=== PATIENT | female | born 1955 | race Caucasian/White ===

== ENCOUNTER 2023-07-26 08:34 | Outpatient (OUT) | payer MEDICARE, SELFPAY | END 2023-07-26 08:35 | disposition home or self-care (01) | LOC: PST 07-27 08:35 | PROVIDERS: Visit Provider Surgery | DX: Z01.818 Encounter for other preprocedural examination (principal); Z12.11 Encounter for screening for malignant neoplasm of colon ==

== ENCOUNTER 2023-08-01 07:32 | Day surgery (SDC) | payer MEDICARE, SELFPAY ==
--- NOTE | 2023-08-01 | OP_ITS ---
OPERATION DATE: ??08/01/2023 PREOPERATIVE DIAGNOSIS:? Surveillance colonoscopy, family history of colon cancer. POSTOPERATIVE DIAGNOSIS:? 3 mm sigmoid polyp and moderate sigmoid diverticulosis, redundant colon. PROCEDURE:? Colonoscopy to cecum with cold snare polypectomy x1. SURGEON:? Job Singh M.D. ANESTHESIA:? Monitored anesthesia care. ESTIMATED BLOOD LOSS:? Less than 1 mL. INDICATIONS AND CONSENT:? Patient is a 68-year-old female with a family history of colon cancer, who presents for surveillance colonoscopy.? Last colonoscopy was in 2018.? Indications, risks, benefits, alternatives of proceeding with colonoscopy were explained extensively to the patient, including the risks of bleeding, colon perforation or anesthetic complications.? All of her questions were answered.? Informed consent was obtained. PROCEDURE:? Patient brought to the operating room, placed in the left lateral decubitus position.? Monitored anesthesia care was provided.? Rectal exam was performed which showed no masses or blood.? The scope was inserted into the anal canal.? Under direct visualization was advanced.? With the aid of abdominal compression, it was advanced to the cecum where cecal markings were clearly identified.? Upon withdrawal of the scope, mucosal surfaces were carefully examined.? There were no mass lesions or inflammatory changes.? Within the sigmoid colon, there was noted to be a 3 mm sessile, erythematous polyp that was removed with cold snare with good hemostasis.? There was moderate sigmoid diverticulosis without inflammatory changes or scarring.? The scope was retroflexed in the anal canal.? There was no significant hemorrhoidal disease.? Scope was then withdrawn.? Patient tolerated procedure well, was sent to recovery room in good condition.f/u colonoscopy likely in 5 years, but may change based on the pathology report. CC:? Patient?s family physician BUTCH
[2023-08-01 07:50] VITALS: BP 155/88; PULSE 95; RESP 16; TEMP 36.4; O2SAT 98; BMI 30.5
[2023-08-01] MEDS: LACTATED RINGER'S SOLUTION 1,000 ML 50 ML IV ×2 (08:03→10:24)
[2023-08-01 10:19] VITALS: BP 99/52; PULSE 69; RESP 17; TEMP 36.4; O2SAT 97
[2023-08-01 10:35] VITALS: BP 120/73; PULSE 69; RESP 16; O2SAT 97
[2023-08-01 10:49] VITALS: BP 143/74; PULSE 59; RESP 16; O2SAT 99
== END 2023-08-01 10:49 | disposition home or self-care (01) ==
PROVIDERS: PCP Family Medicine; Visit Provider Surgery
PROC: (CPT 45385; principal; 2023-08-01 09:20)
DX: Z12.11 Encounter for screening for malignant neoplasm of colon (principal); Z80.0 Family history of malignant neoplasm of digestive organs; I10 Essential (primary) hypertension; E78.5 Hyperlipidemia, unspecified; Z90.710 Acquired absence of both cervix and uterus; K57.30 Diverticulosis of large intestine without perforation or abscess without bleeding; Q43.8 Other specified congenital malformations of intestine; R73.03 Prediabetes
CPT/HCPCS: 45385; J2704

== ENCOUNTER 2023-08-03 07:38 | Outpatient (OUT) | payer MEDICARE, SELFPAY ==
--- NOTE | 2023-08-03 07:43 | MM_ITS ---
Patient: MELLO KITCHEN Exam Date: 08/03/2023 : 1955 Gender:F Ordering : DR Shaun Licona . Admission #: [id number] Family : Order #: [id number] CLICK HERE TO VIEW EXAM RADIOLOGY REPORT PROCEDURE: MM TOMOSYNTHESIS SCREENING BI COMPARISON: MG MAMM SCREEN 3D TASHIA CAD, 07/31/2022. MG MAMM SCREEN 3D TASHIA CAD, 07/29/2021. MG MAMM SCREEN TASHIA W CAD, 07/21/2020. MG MAMM TASHIA SCRN W CAD DIG, 10/15/2009. INDICATIONS: Screening Calculator Name NCI Breast Cancer Risk Assessment Tool 5 Year Breast Cancer Risk 2.30% Lifetime Breast Cancer Risk 7.40% Personal Breast Cancer No Personal Ovarian Cancer No Treatments None Family Cancers Mother with colon cancer at age 60; Father with colon cancer at age 65. LOCATION: [facility] BREAST COMPOSITION: Heterogeneously dense,which may obscure small masses. FINDINGS: DIAGNOSTIC CATEGORY 0--INCOMPLETE: NEED ADDITIONAL IMAGING EVALUATION. RIGHT BREAST: 1.2 cm circumscribed mass within upper inner quadrant approximately 12 o'clock mid breast which is increased in size. Adjacent 0.9 cm circumscribed mass is chronic and has remained stable. Spot magnification views and ultrasound evaluation recommended. LEFT BREAST: No significant suspicious finding. No significant change has occurred. RECOMMENDATIONS: ADDITIONAL MAMMOGRAPHIC VIEWS REQUIRED: RIGHT BREAST - RIGHT CRANIOCAUDAL SPOT MAGNIFICATION VIEW - RIGHT OBLIQUE SPOT MAGNIFICATION VIEW - ULTRASOUND: RIGHT BREAST PLEASE NOTE: A NORMAL MAMMOGRAM DOES NOT EXCLUDE THE POSSIBILITY OF BREAST CANCER. A CLINICALLY SUSPICIOUS PALPABLE LUMP SHOULD BE BIOPSIED. Dictated by: Osman Javed M.D. on 08/03/2023 at 11:31 Approved by: Osman Javed M.D. on 08/03/2023 at 11:43
== END 2023-08-03 07:39 | disposition home or self-care (01) ==
LOC: MAMMO 07:38
PROVIDERS: PCP Family Medicine; Visit Provider Family Medicine
DX: Z12.31 Encounter for screening mammogram for malignant neoplasm of breast (principal); Z80.0 Family history of malignant neoplasm of digestive organs; N63.12 Unspecified lump in the right breast, upper inner quadrant
CPT/HCPCS: 77063; 77067

== ENCOUNTER 2023-08-08 07:51 | Outpatient (OUT) | payer MEDICARE, SELFPAY ==
[2023-08-08 08:14] LABS: Basophils Percent Auto 0.6 % (0.2-2.0); Eosinophils Absolute Auto 0.1 10^3/uL (0.0-0.7); Hematocrit 38.8 % (36.0-48.0); Immature Granulocytes Abs Auto 0.01 10^3/uL (0.00-0.03); Immature Granulocytes Pct Auto 0.2 % (0.0-0.5); Lymphocytes Absolute Auto 1.5 10^3/uL (1.2-3.8); Lymphocytes Percent Auto 29.1 % (20.5-60.0); Mean Corpuscular HGB Conc 33.5 g/dL (29.9-35.2); Mean Corpuscular Hemoglobin 32.1 pg (26.7-34.0); Mean Corpuscular Volume 95.8 fL (81.0-99.0); Mean Platelet Volume 10.3 fL (9.5-13.5); Monocytes Absolute Auto 0.5 10^3/uL (0.3-0.8); Monocytes Percent Auto 9.4 % (1.7-12.0); Neutrophils Percent Auto 58.7 % (43.0-75.0); Platelet Count 202 10^3/uL (150-450); Red Blood Count 4.05 10^6/uL (4.20-5.40); Red Cell Distribution Width 12.7 % (11.0-15.0); White Blood Count 5.1 10^3/uL (4.0-11.0)
[2023-08-08 14:01] LABS: Alanine Aminotransferase 34 U/L (14-59); Albumin Globulin Ratio 1.1; Albumin Level 3.9 g/dL (3.4-5.0); Alkaline Phosphatase 83 U/L (46-116); Anion Gap 13.8; Aspartate Amino Transferase 13 U/L (15-37); Bilirubin Direct 0.1 mg/dL (0.0-0.2); Bilirubin Total 0.6 mg/dL (0.2-1.0); Carbon Dioxide 29.1 mmol/L (21.0-32.0); Chloride 100 mmol/L (98-107); Chol HDL Ratio 1.9; Cholesterol 128 mg/dL (<=200); Globulin 3.5 g/dL; HDL Cholesterol 67 mg/dL (40-60); Potassium 3.9 mmol/L (3.5-5.1); Sodium 139 mmol/L (136-145); Total Protein 7.4 g/dL (6.4-8.2); Triglycerides 73 mg/dL (<=150); VLDL CHOLESTEROL 14.6 mg/dL
[2023-08-08 14:17] LABS: Estimated Average Glucose 123 mg/dL; Glycohemoglobin A1C 5.9 % (4.5-6.2)
== END 2023-08-08 07:52 | disposition home or self-care (01) ==
PROVIDERS: PCP Family Medicine; Visit Provider Family Medicine
DX: E87.5 Hyperkalemia (principal); R73.03 Prediabetes; Z79.899 Other long term (current) drug therapy
CPT/HCPCS: 36415; 80051; 80061; 80076; 83036; 85025

== ENCOUNTER 2023-08-22 08:23 | Outpatient (OUT) | payer MEDICARE, SELFPAY ==
--- NOTE | 2023-08-22 08:27 | MM_ITS ---
Patient: MELLO KITCHEN Exam Date: 08/22/2023 : 1955 Gender:F Ordering : DR PRISCILLA SANCHEZ . Admission #: [id number] Family : Order #: [id number] CLICK HERE TO VIEW EXAM RADIOLOGY REPORT PROCEDURE: MM DIAGNOSTIC MAMMO UNILAT RT, 08/22/2023, 08:32 US BREAST RT LIMITED, 08/22/2023, 08:56 COMPARISON: MM TOMOSYNTHESIS SCREENING BI, 08/03/2023. MG MAMM SCREEN 3D TASHIA CAD, 07/31/2022. MG MAMM SCREEN 3D TASHIA CAD, 07/29/2021. MG MAMM SCREEN TASHIA W CAD, 07/21/2020. INDICATIONS: Abnormal Mammogram Calculator Name NCI Breast Cancer Risk Assessment Tool 5 Year Breast Cancer Risk 2.30% Lifetime Breast Cancer Risk 7.40% Personal Breast Cancer No Personal Ovarian Cancer No Treatments None Family Cancers Mother with colon cancer at age 60; Father with colon cancer at age 65. LOCATION: [facility] BREAST COMPOSITION: Heterogeneously dense,which may obscure small masses. FINDINGS: DIAGNOSTIC CATEGORY 3--PROBABLY BENIGN FINDING. THE FOLLOWING FINDING(S) HAS A HIGH PROBABILITY OF A BENIGN ETIOLOGY: RIGHT BREAST: Spot magnification views demonstrate a partially circumscribed 1.2 cm lesion within the upper inner quadrant approximately 12 o'clock. Ultrasound evaluation demonstrates a 1.2 x 0.6 x 1.2 cm anechoic cystic structure with minimally irregular clark. Adjacent to this is a questionable 0.7 x 0.4 x 0.7 cm lymph node versus mass. Follow-up evaluation in 6 months is recommended to document stability versus change. RECOMMENDATIONS: SHORT TERM FOLLOW-UP DIAGNOSTIC MAMMOGRAM RIGHT BREAST IN 6 MONTHS. SHORT TERM FOLLOW-UP ULTRASOUND RIGHT BREAST IN 6 MONTHS. PLEASE NOTE: A NORMAL MAMMOGRAM DOES NOT EXCLUDE THE POSSIBILITY OF BREAST CANCER. A CLINICALLY SUSPICIOUS PALPABLE LUMP SHOULD BE BIOPSIED. Dictated by: Osman Javed M.D. on 08/22/2023 at 09:19 Approved by: Osman Javed M.D. on 08/22/2023 at 09:25
== END 2023-08-22 08:24 | disposition home or self-care (01) ==
LOC: MAMMO 08:23
PROVIDERS: PCP Family Medicine; Visit Provider Family Medicine
DX: R92.8 Other abnormal and inconclusive findings on diagnostic imaging of breast (principal); N64.9 Disorder of breast, unspecified
CPT/HCPCS: 76642; 77065

== ENCOUNTER 2024-03-05 07:44 | Outpatient (OUT) | payer MEDICARE, SELFPAY ==
--- NOTE | 2024-03-05 07:50 | MM_ITS ---
Patient Name: MELLO KITCHEN MR#: [id number] : 1955 Exam Date: 03/05/2024 Ordering Doctor: DR Shaun Licona . RADIOLOGY REPORT PROCEDURE: MM TOMOSYNTHESIS DIAGNOSTIC RT, 03/05/2024, 06:55 US BREAST RT LIMITED, 03/05/2024, 08:06 COMPARISON: US BREAST RT LIMITED, 08/22/2023. MM DIAGNOSTIC MAMMO UNILAT RT, 08/22/2023. MM TOMOSYNTHESIS SCREENING BI, 08/03/2023. MG MAMM SCREEN 3D TASHIA CAD, 07/31/2022. INDICATIONS: Abnormal Right Mammogram R92.8 Calculator Name NCI Breast Cancer Risk Assessment Tool 5 Year Breast Cancer Risk 2.30% Lifetime Breast Cancer Risk 7.40% Personal Breast Cancer No Personal Ovarian Cancer No Treatments None Family Cancers Mother with colon cancer at age 60; Father with colon cancer at age 65. LOCATION: [facility] BREAST COMPOSITION: The breasts are heterogeneously dense,which may obscure small masses. FINDINGS: DIAGNOSTIC CATEGORY 3--PROBABLY BENIGN FINDING. THE FOLLOWING FINDING(S) HAS A HIGH PROBABILITY OF A BENIGN ETIOLOGY: RIGHT BREAST: Standard views and spot magnification views demonstrate a partially circumscribed lesion within the upper inner quadrant approximately 12 o'clock, 1.2 cm in size with stable adjacent 8 mm lesion. Ultrasound evaluation demonstrates an anechoic thin walled 1.2 x 1.2 x 0.6 cm cyst favoring benign etiology. Adjacent to this, 6.1 cm from the nipple is a 7 x 6 x 3 mm small nodule with associated calcification corresponding to the mammographic findings; unchanged compared to prior ultrasound study and stable could paired to tomographic mammography through at least 2021. As a precautionary measure and to help document stability over 2 year period additional follow-up mammography and right breast ultrasound in 6 months is recommended. RECOMMENDATIONS: SHORT TERM FOLLOW-UP DIAGNOSTIC MAMMOGRAM RIGHT BREAST IN 6 MONTHS. SHORT TERM FOLLOW-UP ULTRASOUND RIGHT BREAST IN 6 MONTHS. PLEASE NOTE: A NORMAL MAMMOGRAM DOES NOT EXCLUDE THE POSSIBILITY OF BREAST CANCER. A CLINICALLY SUSPICIOUS PALPABLE LUMP SHOULD BE BIOPSIED. Dictated by: Osman Javed M.D. on 03/05/2024 at 08:22 Approved by: Osman Javed M.D. on 03/05/2024 at 08:33
== END 2024-03-05 07:45 | disposition home or self-care (01) ==
LOC: MAMMO 07:44
PROVIDERS: PCP Family Medicine; Visit Provider Family Medicine
DX: R92.8 Other abnormal and inconclusive findings on diagnostic imaging of breast (principal); Z80.0 Family history of malignant neoplasm of digestive organs; N63.12 Unspecified lump in the right breast, upper inner quadrant
CPT/HCPCS: 76642; 77065; G0279

== ENCOUNTER 2024-07-11 07:59 | Outpatient (OUT) | payer MEDICARE, SELFPAY ==
--- OUTSIDE RECORDS SUMMARY | 2024-07-11 08:02 | XMS_ITS | CCD ---
Author Organization [facility] Care Team Providers Care Drug Abuse Social Worker Name Role Phone DANIEL, DR PRISCILLA Mayen Admitting Unavailable NADERER, DR PRISCILLA Mayen Attending Unavailable NADERER, DR PRISCILLA Mayen Primary Care Unavailable ZIEBER, DR OSMAN Pulliam Consulting Unavailable NADERER, DR PRISCILLA Mayen Consulting Unavailable NADERER, DR PRISCILLA Mayen Admitting Unavailable NADERER, DR PRISCILLA Mayen Attending Unavailable NADERER, DR PRISCILLA Mayen Primary Care Unavailable NADERER, DR PRISCILLA Mayen Consulting Unavailable NADERER, DR PRISCILLA Mayen Admitting Unavailable NADERER, DR PRISCILLA Mayen Attending Unavailable NADERER, DR PRISCILLA Mayen Primary Care Unavailable NADERER, DR PRISCILLA Mayen Consulting Unavailable NADERER, PRISCILLA Primary Care Physician GERI, Job Pulliam Attending Unavailable NILL, Job Pulliam Attending Unavailable NADERER, PRISCILLA Referring Unavailable NILL, Job Pulliam Attending Unavailable NILL, Job Pulliam Attending Unavailable NILL, Job Pulliam Attending Unavailable NADERER, PRISCILLA Attending Unavailable NADERER, PRISCILLA Attending Unavailable Allergies Allergy Classification Reported Allergen(s) Allergy Type Date of Onset Reaction(s) Facility (1 source) No Known Medication Allergies; Translations: [No Known Medication Allergies] Propensity to adverse reactions (disorder) [facility] Repository Medications Current Medications Medication Drug Class(es) Dates Sig (Normalized) Sig (Original) atorvastatin 20 mg oral tablet (2 sources) HMG-CoA Reductase Inhibitor Start: 07-06-2023 take 1 tablet by mouth once daily Lipitor 20 mg Tab 20 mg = 1 tab(s), Oral, Daily, Refills(s) 0 Start Date: 07/06/23 Status: Ordered hydroCHLOROthiazide 25 mg / lisinopril 20 mg oral tablet (2 sources) Thiazide Diuretic, Angiotensin Converting Enzyme Inhibitor Start: 07-06-2023 take 1 tablet by mouth once daily Zestoretic 25 mg-20 mg Tab 1 tab(s), Oral, Daily, Refill(s) 0 Start Date: 07/06/23 Status: Ordered metoprolol tartrate 25 mg oral tablet (2 sources) beta-Adrenergic Anselmo Start: 07-06-2023 take 1 tablet by mouth twice daily Metoprolol tartrate 25 mg Tab 25 mg = 1 tab(s), Oral, BID, Refills(s) 0 Start Date: 07/06/23 Status: Ordered Problems Active Problems Problem Classification Problem Date Documented Da te Episodic/Chronic Cardiac dysrhythmias (3 sources) Ventricular premature depolarization; Translations: [Ventricular arrhythmia] Onset: 02-24-2022 07-06-2023 Chronic Diabetes mellitus without complication (3 sources) Prediabetes; Translations: [Prediabetes] Onset: 08-01-2022 07-06-2023 Episodic Disorders of lipid metabolism (6 sources) Hyperlipidemia, unspecified; Translations: [Dyslipidemia] Onset: 07-31-2022 Chronic Diverticulosis and diverticulitis (2 sources) Diverticula of intestine; Translations: [Diverticulosis of large intestine without perforation or abscess without bleeding] Onset: 08-14-2023 Chronic Essential hypertension (3 sources) Essential (primary) hypertension; Translations: [Hypertensive disorder] Onset: 08-01-2022 07-06-2023 Chronic Heart valve disorders (1 source) Rheumatic tricuspid insufficiency; Translations: [RHEUMATIC TRICUSPID INSUFFICIENCY] Onset: 02-24-2022 Chronic Other and unspecified benign neoplasm (2 sources) Benign neoplasm of sigmoid colon; Translations: [Benign neoplasm of sigmoid colon] Onset: 08-14-2023 Episodic Other nutritional; endocrine; and metabolic disorders (2 sources) Overweight 07-06-2023 Episodic Other nutritional; endocrine; and metabolic disorders (2 sources) Overweight in adulthood with body mass index of 25 or more but less than 30 07-11-2023 Episodic Other screening for suspected conditions (not mental disorders or infectious disease) (2 sources) Encounter for screening mammogram for malignant neoplasm of breast; Translations: [Screening for malignant neoplasm of colon done] Onset: 08-01-2022 Episodic Other upper respiratory disease (2 sources) Seasonal allergy 07-06-2023 Chronic Residual codes; unclassified (2 sources) Family history of polyp of colon 07-11-2023 Episodic Residual codes; unclassified (1 source) Family history of malignant neoplasm of digestive organ; Translations: [Family history of malignant neoplasm of digestive organs] Onset: 08-14-2023 Episodic Residual codes; unclassified (1 source) Family history of cancer of colon 08-14-2023 Episodic Unclassified (4 sources) Patient encounter status 07-06-2023 Past or Other Problems Problem Classification Problem Date Documented Da te Episodic/Chronic Cardiac dysrhythmias (4 sources) Palpitations; Translations: [PALPITATIONS] Onset: 02-03-2022 Episodic Other aftercare (1 source) Other usp (current) drug therapy; Translations: [OTH SNF CURRENT DRUG THERAPY] Onset: 08-01-2022 Episodic Other lower respiratory disease (4 sources) Shortness of breath; Translations: [SHORTNESS OF BREATH] Onset: 02-22-2022 Episodic Other nutritional; endocrine; and metabolic disorders (1 source) Overweight; Translations: [OVERWEIGHT] Onset: 08-01-2022 Episodic Residual codes; unclassified (1 source) Family history of malignant neoplasm of digestive organs; Translations: [FAM HX MALIG NEOPLASM DIGESTIV ORGN] Onset: 08-01-2022 Episodic Results Test Name Value Interpretation Reference Range Facility Ambulatory Visit Summaryon 1 Ambulatory Visit Summary MELLO KITCHEN :1955 Visit Date:08/14/2023 Ambulatory Visit Instructions Your Care Team Attending Physician - GERI STANTON, Job Pulliam Primary Care Physician - DANIEL STANTON, PRISCILLA This Is Your Medications List atorvastatin (Lipitor 20 mg Tab) hydrochlorothiazide-l isinopril (Zestoretic 25 mg-20 mg Tab) metoprolol (Metoprolol tartrate 25 mg Tab) Procedures Performed Colonoscopy (08/01/2023), Colonoscopy (06/26/2018), Abdominal hysterectomy, Colonoscopy, Colonoscopy, Colonoscopy, Tonsillectomy. Medications What How Much When Instructions Unchanged atorvastatin (Lipitor 20 mg Tab) 1 Tablets By Mouth Every day Unchanged hydrochlorothiazide-l isinopril (Zestoretic 25 mg-20 mg Tab) 1 Tablets By Mouth Every day Unchanged metoprolol (Metoprolol tartrate 25 mg Tab) 1 Tablets By Mouth 2 times a day Allergies No Known Allergies No Known Medication Allergies Problems Ongoing - Any problem that you are currently receiving treatment for. BMI 26.0-26.9,adult Dyslipidemia Family history of colonic polyps HTN (hypertension) Overweight Prediabetes Screening for colorectal cancer Screening for malignant neoplasm of colon Seasonal allergies Ventricular ectopy Normal [facility] General Surgery Office/Clini c Noteon 08-14-2023 General Surgery Office/Clinic Note Chief Complaint post operative follow up HPI Staff 13 day post operative follow up post colonoscopy with sigmoid polypectomy. History of Present Illness s/p colonoscopy due to fmhx of colon cancer; had moderate sigmoid diverticulosis; and small sigmoid polyp removed; polyp was not retrieved, but appearance was consistent with possible tubular adenoma. patient denies abd pain or blood in stools. Review of Systems ROS - Provider Constitutional: no fever, no sweats, no weight loss. Eyes: no glasses, no blurred vision, no visual loss. ENMT: no dentures, no hoarseness, no swallowing difficulties, no hearing loss, no ear infection(s), no nose bleeds. Cardiovascular: normal blood pressure, no chest pain, regular heartbeat, no heart murmur. Respiratory: no shortness of breath, no cough, no asthma, no wheezing. Gastrointestinal: no nausea, no vomiting, no diarrhea, no constipation, no blood in stool, no change in bowel habits, no abdominal pain, no hepatitis. Genitourinary: no kidney stones, no urine infection, no dysuria. Musculoskeletal: no pain, no weakness. Skin: no changing moles, no rash, no skin lumps. Neurologic: no seizures, no epilepsy, no headache. Psychiatric: no emotional or psychiatric problem. Heme/Lymph: no bleeding problems, no anemia, no blood clots, no transfusions. Allergy/Immunologic: no swollen lymph nodes/glands, no IV drug abuse. Other: Additional ROS info: Except as noted in the above Review of Systems and in the History of Present Illness, all other systems have been reviewed and are negative or noncontributory. Assessment/Plan 1. Benign neoplasm of sigmoid colon (D12.5: Benign neoplasm of sigmoid colon) recommend surveillance colonoscopy in 5 years; call sooner if problems/questions. 2. Diverticulosis of sigmoid colon (K57.30: Diverticulosis of large intestine without perforation or abscess without bleeding) high fiber diet and dailly fiber supplement 3. Family hx of colon cancer (Z80.0: Family history of malignant neoplasm of digestive organs) see # 1 Follow-up No qualifying data available Problem List/Past Medical History Ongoing Benign neoplasm of sigmoid colon BMI 26.0-26.9,adult Diverticulosis of sigmoid colon Dyslipidemia Family history of colonic polyps Family hx of colon cancer HTN (hypertension) Overweight Prediabetes Screening for colorectal cancer Screening for malignant neoplasm of colon Seasonal allergies Ventricular ectopy Historical No qualifying data Procedure/Surgical History Colonoscopy (08/01/2023), Colonoscopy (06/26/2018), Abdominal hysterectomy, Colonoscopy, Colonoscopy, Colonoscopy, Tonsillectomy. Medications Lipitor 20 mg Tab, 20 mg= 1 tab(s), Oral, Daily Metoprolol tartrate 25 mg Tab, 25 mg= 1 tab(s), Oral, BID Zestoretic 25 mg-20 mg Tab, 1 tab(s), Oral, Daily Allergies No Known Allergies No Known Medication Allergies Social History Alcohol - Denies Alcohol Use, 07/11/2023 Substance Abuse - Denies Substance Abuse, 07/11/2023 Tobacco Never (less than 100 in lifetime) Tobacco Use:. Never Smokeless Tobacco Use:., 07/11/2023 Family History Hypertension: Mother and Father. Primary malignant neoplasm of colon: Mother and Brother. Immunizations Vaccine Date Status SARS-CoV-2 (COVID-19) [id number] 10/20/2022 Recorded SARS-CoV-2 (COVID-19) mRNA BNT-162b2 vax 09/06/2021 Recorded SARS-CoV-2 (COVID-19) mRNA BNT-162b2 vax 02/08/2021 Recorded SARS-CoV-2 (COVID-19) mRNA BNT-162b2 vax 01/17/2021 Recorded Normal [facility] Comment on above: Result Comment: Elec tronically Signed By: GERI STANTON, Job Camacho\Date and Time Signed: 08/14/23 13:51 EDT Reminderson 08-14-2023 Reminders - From: Mayra Vivar LPN To: N - Clinical; Sent: 08/14/2023 13:31:54 EDT Show up: 07/01/2028 07:00:00 EDT Subject: colonoscopy recall Due Date/Time: 08/01/2028 07:00:00 EDT Reminder/Recall Patient due for surveillance colonoscopy 08/01/2028. Normal [facility] Outside Colonoscopyon 2022 Outside Colonoscopy [id number] .[id number]:127 [facility] Consent for Procedure/Surger yon 2023 Consent for Procedure/Surgery [id number] .[id number]:[address] [facility] Formson 2023 Forms [id number] .[id number]:127 [facility] Ambulatory Visit Summaryon 0 07-11-2023 Ambulatory Visit Summary MELLO KITCHEN :1955 Visit Date:07/11/2023 Ambulatory Visit Instructions Your Care Team Attending Physician - GERI STANTON, Job Pulliam Primary Care Physician - DANIEL STANTON, PRISCILLA Referring Physician - DANIEL STANTON, PRISCILLA This Is Your Medications List Contact prescribing physician if questions or concerns atorvastatin (Lipitor 20 mg Tab) hydrochlorothiazide-l isinopril (Zestoretic 25 mg-20 mg Tab) metoprolol (Metoprolol tartrate 25 mg Tab) Procedures Performed Colonoscopy (06/26/2018), Abdominal hysterectomy, Colonoscopy, Colonoscopy, Colonoscopy, Tonsillectomy. Discharge Vitals Heart Rate (Peripheral) 72 Respiratory Rate 16 Blood Pressure 126/86 Height 175.2 cm Height 69 in Weight 81.1 kg Weight 178.42 lb BMI 26.42 Medications What How Much When Instructions Unchanged atorvastatin (Lipitor 20 mg Tab) 1 Tablets By Mouth Every day Contact prescribing physician if questions or concerns Unchanged hydrochlorothiazide-l isinopril (Zestoretic 25 mg-20 mg Tab) 1 Tablets By Mouth Every day Contact prescribing physician if questions or concerns Unchanged metoprolol (Metoprolol tartrate 25 mg Tab) 1 Tablets By Mouth 2 times a day Contact prescribing physician if questions or concerns Allergies No Known Allergies No Known Medication Allergies Problems Ongoing - Any problem that you are currently receiving treatment for. BMI 26.0-26.9,adult Dyslipidemia Family history of colonic polyps HTN (hypertension) Overweight Prediabetes Screening for colorectal cancer Seasonal allergies Ventricular ectopy Normal [facility] Physician Referralon 023 Physician Referral [id number] .[id number]:[address] [facility] CBC AUTO DIFFon 07-31-2022 BASO # 0.0 103/ul Normal 0.0-0.1 [facility] Comment on above: Performed By: #### C BC #### [facility] [address] [address] [address] Job Cerda Basophils/100 WBC (Bld) 0.3 % Normal 0.2-2.0 [facility] Comment on above: Performed By: #### C BC #### [facility] [address] [place] [address] Dr. Job Cerda EO # 0.2 103/ul Normal 0.0-0.7 [facility] Comment on above: Performed By: #### C BC #### [facility] [address] [address] [address] Job Cerda Eosinophils/100 WBC (Bld) 2.4 % Normal 0.9-7.0 [facility] Comment on above: Performed By: #### C BC #### [facility] [address] [address] [address] Job Cerda Erythrocyte distribution width (RBC) [Ratio] 13.6 % Normal 11.0-15.0 [facility] Comment on above: Performed By: #### C BC #### [facility] [address] [place] [address] Dr. Job Cerda Hematocrit (Bld) [Volume fraction] 40.1 % Normal 36.0-48.0 [facility] Comment on above: Performed By: #### C BC #### [facility] [address] [place] [address] Dr. Job Cerda Hemoglobin (Bld) [Mass/Vol] 13.5 g/dL Normal 12.0-16.0 [facility] Comment on above: Performed By: #### C BC #### [facility] [address] [place] [address] Dr. Job Cerda IG # 0.02 10e3/ul Normal 0.00-0.03 [facility] Comment on above: Performed By: #### C BC #### [facility] [address] [place] [address] Dr. Job Cerda IG % 0.3 % Normal 0.0-0.5 [facility] Comment on above: Performed By: #### C BC #### [facility] [address] [place] [address] Dr. Job Cerda LYMPH # 2.4 103/ul Normal 1.2-3.8 [facility] Comment on above: Performed By: #### C BC #### [facility] [address] [place] [address] Dr. Job Cerda Lymphocytes/100 WBC (Bld) 35.7 % Normal 20.5-60.0 [facility] Comment on above: Performed By: #### C BC #### [facility] [address] [place] [address] Dr. Job Cerda MANUAL DIFF REQ NO Normal [facility] Comment on above: Performed By: #### C BC #### [facility] [address] [place] [address] Dr. Job Cerda MCH (RBC) [Entitic mass] 32.0 pg Normal 26.7-34.0 [facility] Comment on above: Performed By: #### C BC #### [facility] [address] [place] [address] Dr. Job Cerda MCHC (RBC) [Mass/Vol] 33.7 g/dL Normal 29.9-35.2 [facility] Comment on above: Performed By: #### C BC #### [facility] [address] [place] [address] Dr. Job Cerda MCV (RBC) [Entitic vol] 95.0 fL Normal 81.0-99.0 [facility] Comment on above: Performed By: #### C BC #### [facility] [address] [place] [address] Dr. Job Cerda MONO # 0.6 103/ul Normal 0.3-0.8 [facility] Comment on above: Performed By: #### C BC #### [facility] [address] [place] [address] Dr. Job Cerda Monocytes/100 WBC (Bld) 8.4 % Normal 1.7-12.0 [facility] Comment on above: Performed By: #### C BC #### [facility] [address] [place] [address] Dr. Job Cerda NEUT # 3.5 103/ul Normal 1.4-6.5 [facility] Comment on above: Performed By: #### C BC #### [facility] [address] [place] [address] Dr. Job Cerda Neutrophils/100 WBC (Bld) 52.9 % Normal 43.0-75.0 [facility] Comment on above: Performed By: #### C BC #### [facility] [address] [place] [address] Dr. Job Cerda Platelet mean volume (Bld) [Entitic vol] 10.9 fL Normal 9.5-13.5 [facility] Comment on above: Performed By: #### C BC #### [facility] [address] [place] [address] Dr. Job Cerda PLT 177 103/ul Normal 150-450 [facility] Comment on above: Performed By: #### C BC #### [facility] [address] [place] [address] Dr. Job Cerda RBC 4.22 106/ul Normal 4.20-5.40 [facility] Comment on above: Performed By: #### C BC #### [facility] [address] [place] [address] Dr. Job Cerda WBC 6.7 103/ul Normal 4.0-11.0 [facility] Comment on above: Performed By: #### C BC #### [facility] [address] [place] [address] Dr. Job Cerda GLYCOHEMOGLOBIN A1Con 2021 ADA RECOMMENDATION SEE BELOW Normal [facility] Comment on above: Result Comment: ADA RECOMMENDED LIMIT 4.0 - 6.0 ADA THERAPEUTIC TARGET < 7.0 ACTION SUGGESTED > 7.0 Performed By: #### A 1C #### [facility] [address] [address] [address] Job Cerda Glucose [Mass/Vol] 120 mg/dL Normal [facility] Comment on above: Performed By: #### A 1C #### [facility] [address] [address] [address] Job Cerda HbA1c (Bld) [Mass fraction] 5.8 % Normal 4.5-6.2 [facility] Comment on above: Performed By: #### A 1C #### [facility] [address] [place] [address] Dr. Job Cerda LIPID PROFILEon 07-31-2022 CHOL-HDL RATIO NORM SEE BELOW Normal [facility] Comment on above: Result Comment: 3.3 - 4.4 LOW RISK 4.4 - 7.1 AVERAGE RISK 7.1 - 11.0 MODERATE RISK >11.0 HIGH RISK Performed By: #### T SH, BMP, LIVER, LIPID #### [facility] [address] [address] [address] Job Cerda Cholesterol [Mass/Vol] 139 mg/dL Normal <=200 [facility] Comment on above: Performed By: #### T SH, BMP, LIVER, LIPID #### [facility] [address] [address] [address] Job Cerda Cholesterol in HDL [Mass/Vol] 65 mg/dL Critically high 40-60 [facility] Comment on above: Performed By: #### T SH, BMP, LIVER, LIPID #### [facility] [address] [address] [address] Job Cerda Cholesterol in LDL [Mass/Vol] 57.8 mg/dL Normal [facility] Comment on above: Performed By: #### T SH, BMP, LIVER, LIPID #### [facility] [address] [address] [address] Job Cerda Cholesterol.total/Cho lesterol in HDL [Mass ratio] 2.1 {ratio} Normal [facility] Comment on above: Performed By: #### T SH, BMP, LIVER, LIPID #### [facility] [address] [address] [address] Job Cerda HDL NORMAL > or = 60 mg/dl - LO W CARDIOVASCULAR RISK <40 mg/dl - HIGH CARDIOVASCULAR RISK Normal [facility] Comment on above: Performed By: #### T SH, BMP, LIVER, LIPID #### [facility] [address] [address] [address] Job Cerda LDL CALC NORMAL SEE BELOW Normal [facility] Comment on above: Result Comment: <100 mg/dl OPTIMAL 100 - 129 mg/dl NEAR OR ABOVE OPTIMAL 130 - 159 mg/dl BORDERLINE HIGH 160 - 189 mg/dl HIGH >190 mg/dl VERY HIGH Performed By: #### T SH, BMP, LIVER, LIPID #### [facility] [address] [address] [address] Job Cerda Triglyceride [Mass/Vol] 81 mg/dL Normal <=150 [facility] Comment on above: Performed By: #### T SH, BMP, LIVER, LIPID #### [facility] [address] [address] [address] Job Cerda VLDL CALC 16.2 mg/dL Normal [facility] Comment on above: Performed By: #### T SH, BMP, LIVER, LIPID #### [facility] [address] [address] [address] Job Cerda LIVER PROFILEon 07-31-2022 Albumin [Mass/Vol] 3.8 g/dL Normal 3.4-5.0 [facility] Comment on above: Performed By: #### T SH, BMP, LIVER, LIPID #### [facility] [address] [place] [address] Dr. Job Cerda Albumin/Globulin [Mass ratio] 1.1 {ratio} Normal [facility] Comment on above: Performed By: #### T SH, BMP, LIVER, LIPID #### [facility] [address] [address] [address] Job Cerda ALP [Catalytic activity/Vol] 79 U/L Normal 46-116 [facility] Comment on above: Performed By: #### T SH, BMP, LIVER, LIPID #### [facility] [address] [address] [address] Job Cerda ALT [Catalytic activity/Vol] 33 U/L Normal 14-59 [facility] Comment on above: Performed By: #### T SH, BMP, LIVER, LIPID #### [facility] [address] [address] [address] Job Cerda AST [Catalytic activity/Vol] 13 U/L Critically low 15-37 [facility] Comment on above: Performed By: #### T SH, BMP, LIVER, LIPID #### [facility] [address] [address] [address] Job Cerda BILI, CONJUGATED 0.2 mg/dL Normal 0.0-0.2 [facility] Comment on above: Performed By: #### T SH, BMP, LIVER, LIPID #### [facility] [address] [address] [address] Job Cerda Bilirubin [Mass/Vol] 0.7 mg/dL Normal 0.2-1.0 [facility] Comment on above: Performed By: #### T SH, BMP, LIVER, LIPID #### [facility] [address] [address] [address] Job Cerda Globulin (S) [Mass/Vol] 3.4 g/dL Normal [facility] Comment on above: Performed By: #### T SH, BMP, LIVER, LIPID #### [facility] [address] [address] [address] Job Cerda Protein [Mass/Vol] 7.2 g/dL Normal 6.4-8.2 [facility] Comment on above: Performed By: #### T SH, BMP, LIVER, LIPID #### [facility] [address] [place] [address] Dr. Job Cerda MG MAMM SCREEN 3D TASHIA CADon 07-31-2022 MG MAMM SCREEN 3D TASHIA CAD Patient: MELLO KITCHEN Exam Date: 07/31/2022 : 1955 Gender:F Ordering : DR PRISCILLA SANCHEZ . Admission #: [id number] Family : Order #: [id number] CLICK HERE TO VIEW EXAM RADIOLOGY REPORT PROCEDURE: MAMMOGRAM SCREENING 3D BILATERAL CAD COMPARISON: MG MAMM SCREEN 3D TASHIA CAD, 07/29/2021. MG MAMM SCREEN TASHIA W CAD, 07/21/2020. INDICATIONS: Screening mammography Calculator Name NCI Breast Cancer Risk Assessment Tool 5 Year Breast Cancer Risk 2.30% Lifetime Breast Cancer Risk 7.70% Personal Breast Cancer No Personal Ovarian Cancer No Treatments None Family Cancers Mother with colon cancer at age 60; Father with colon cancer at age 65. LOCATION: [facility] BREAST COMPOSITION: Heterogeneously dense,which may obscure small masses. FINDINGS: DIAGNOSTIC CATEGORY 2--BENIGN FINDING: RIGHT BREAST: No significant suspicious finding. Scattered benign-appearing nodules are present. Scattered benign-appearing calcifications are present. No significant change has occurred. LEFT BREAST: No significant suspicious finding. No significant change has occurred. RECOMMENDATIONS: ROUTINE MAMMOGRAM AND CLINICAL EVALUATION IN 12 MONTHS. PLEASE NOTE: A NORMAL MAMMOGRAM DOES NOT EXCLUDE THE POSSIBILITY OF BREAST CANCER. A CLINICALLY SUSPICIOUS PALPABLE LUMP SHOULD BE BIOPSIED. Dictated by: Osman Javed M.D. on 07/31/2022 at 11:52 Approved by: Osman Javed M.D. on 07/31/2022 at 11:56 Normal [facility] PROF CHEM 8 (BAS METB)on Anion gap [Moles/Vol] 10.1 mmol/L Normal [facility] Comment on above: Performed By: #### T SH, BMP, LIVER, LIPID #### [facility] [address] [address] [address] Job Cerda Calcium [Mass/Vol] 9.2 mg/dL Normal 8.5-10.1 [facility] Comment on above: Performed By: #### T DONNA, BMP, LIVER, LIPID #### [facility] [address] [place], [place] [address] Dr. Job Cerda Chloride [Moles/Vol] 103 mmol/L Normal 98-107 [facility] Comment on above: Performed By: #### T SH, BMP, LIVER, LIPID #### [facility] [address] [address] [address] Job Cerda CO2 [Moles/Vol] 30.6 mmol/L Normal 21.0-32.0 [facility] Comment on above: Performed By: #### T SH, BMP, LIVER, LIPID #### [facility] [address] [address] [address] Job Cerda Creatinine [Mass/Vol] 1.00 mg/dL Normal 0.55-1.02 [facility] Comment on above: Performed By: #### T SH, BMP, LIVER, LIPID #### [facility] [address] [address] [address] Job Cerda EGFR-AF DJIBOUTIAN >60 Normal >=60 [facility] Comment on above: Performed By: #### T SH, BMP, LIVER, LIPID #### [facility] [address] [place] [address] Dr. Job Cerda EGFR-NON AF DJIBOUTIAN 55 mL/min/1.73m2 Critically low >=60 [facility] Comment on above: Performed By: #### T SH, BMP, LIVER, LIPID #### [facility] [address] [address] [address] Job Cerda Glucose [Mass/Vol] 115 mg/dL Critically high 74-106 [facility] Comment on above: Performed By: #### T SH, BMP, LIVER, LIPID #### [facility] [address] [address] [address] Job Cerda Potassium [Moles/Vol] 3.7 mmol/L Normal 3.5-5.1 [facility] Comment on above: Performed By: #### T SH, BMP, LIVER, LIPID #### [facility] [address] [address] [address] Job Cerda Sodium [Moles/Vol] 140 mmol/L Normal 136-145 [facility] Comment on above: Performed By: #### T SH, BMP, LIVER, LIPID #### [facility] [address] [address] [address] Job Cerda Urea nitrogen [Mass/Vol] 20.0 mg/dL Critically high 7.0-18.0 [facility] Comment on above: Performed By: #### T DNONA, BMP, LIVER, LIPID #### [facility] [address] [address] [address] Job Cerda Urea nitrogen/Creatinine [Mass ratio] 20.0 mg/mg Normal [facility] Comment on above: Performed By: #### T DONNA, BMP, LIVER, LIPID #### [facility] [address] [address] [address] Job Cerda TSHon 07-31-2022 TSH 3.723 uIU/mL Normal 0.358-3.740 [facility] Comment on above: Performed By: #### T DONNA, BMP, LIVER, LIPID #### [facility] [address] [address] [address] Job Cerda ECHOCARDIO M/2D COMPLETEon 0 02-22-2022 ECHOCARDIO M/2D COMPLETE Patient: MELLO KITCHEN Exam Date: 02/22/2022 : 1955 Gender:F Ordering : DR PRISCILLA SANCHEZ . Admission #: [id number] Family : Order #: [id number] CLICK HERE TO VIEW EXAM ECHOCARDIOGRAM REPORT PROCEDURE: CARDIO PULMONARY ECHOCARDIO M/2D COMP INDICATIONS: Ventricular ectopy, shortness of breath COMPARISON: None. DESCRIPTION: COMPLETE ECHOCARDIOGRAM Real-time transthoracic echocardiography with 2D, M-mode, spectral and color flow Doppler performed. QUALITY: Technical quality was good. LEFT VENTRICLE: Normal chamber size. Normal left ventricular wall thickness. No regional wall motion abnormalities. LV EF: Normal left ventricular ejection fraction, (>55%). DIASTOLIC: Normal diastolic function. ATRIAL SEPTUM: Visually appears intact. LEFT ATRIUM: Normal chamber size. RIGHT ATRIUM: Normal chamber size. RIGHT VENTRICLE: Normal chamber size. Normal right ventricular systolic function. TRICUSPID VALVE: Normal mobility and thickness. No stenosis with mild regurgitation. No evidence of pulmonary hypertension. RVSP 24 mmHg MITRAL VALVE: Normal mobility and thickness. No evidence of mitral valve stenosis. Mild mitral annular calcification. Mild mitral regurgitation. AORTIC VALVE: Normal trileaflet appearance. No visible sclerosis. Normal leaflet mobility. No evidence of aortic valve stenosis. No aortic regurgitation. AORTIC ROOT: Normal diameter and appearance. Ascending aorta is normal in size. PULMONIC VALVE: Normal thickness and mobility. No stenosis. Mild regurgitation. PERICARDIUM: No evidence of pericardial effusion. IVC: Collapses with inspirations. PLEURA: CONCLUSION: 1. Normal ventricular function. LVEF is 55 to 60%. 2. Mild mitral and tricuspid regurgitation. 3. Normal right-sided pressures. 4. No pericardial effusion. 5. Frequent PVCs noted during the exam. Adult Echocardiography Procedure Report Left Ventricle LVEDD (3.7 - 5.6 cm): 3.93 cm LVESD (2.2 - 4.0 cm): 2.71 cm LVIVS thickness (0.6 - 1.2 cm): 8.81 mm LVPW thickness (0.5 - 1.0 cm): 7.38 mm e': 11.10 cm/s E - e': 10.20 LVOT Area (cm2): 3.80 cm2 LVOT Diameter 2.20 cm Left Ventricular Ejection Fraction: 55-60 % Left Atrium LA Volume Index (2D A2C): 31.40 ml/m2 Left Atrium Systolic Dimension: 3.10 cm Left Atrium Systolic Area(A2C): 18.40 cm2 Left Atrium Systolic Area(A4C): 14.30 cm2 Left Atrium Systolic Volume(A2C): 92400 mm3 Left Atrium Systolic Volume(A4C): 00468 mm3 Mitral Valve MV E to A Ratio: 1.40 Mitral Valve A-Wave Peak Velocity: 82.40 cm/s Mitral Valve E-Wave Peak Velocity: 113.00 cm/s Deceleration Time: 214 ms Right Ventricle Aorta AO Root Diam: 3.10 cm Aortic Valve AoV Area (Peak Jesus): 3.60 cm2 Peak Velocity(Antegrade Flow): 91.10 cm/s Peak Gradient(Antegrade Flow): 3 mm[Hg] Tricuspid Valve Pulmonic Valve Peak Velocity: 67.90 cm/s Peak Gradient: 2 mm[Hg] Right Atrium Dictated by: Bob Fiore M.D. on 02/22/2022 at 18:32 Approved by: Bob Fiore M.D. on 02/22/2022 at 18:37 Normal [facility] Vital Signs Date Time Vital Sign Value Performing Clinician Faci eve 08-30-2023 14:16-0400 Blood Pressure Location Job NILL [facility] 07-11-2023 14:16-0400 Diastolic blood pressure 86 mm[Hg] Job NILL [facility] 07-11-2023 14:16-0400 Heart rate 72 /min Job NILL [facility] 07-11-2023 14:16-0400 Respiratory rate 16 /min Job NILL [facility] 07-11-2023 14:16-0400 Systolic blood pressure 126 mm[Hg] Job NILL [facility] Encounters Encounter Date Encounter Type Care Provider Facility Start: 07-07-2024 End: 07-07-2024 ambulatory PRISCILLA SANCHEZ Not Available Start: 01-02-2024 End: 01-02-2024 ambulatory PRISCILLA SANCHEZ Not Available Start: 08-14-2023 End: 08-15-2023 ambulatory Job R NILL Facility: [facility] Start: 08-14-2023 End: 08-14-2023 Patient encounter procedure Job R NILL [facility] N[facility] Start: 08-08-2023 ambulatory Job NILL Facility:[facility] Start: 08-01-2023 End: 08-02-2023 ambulatory Job R NILL Facility:[id number] Start: 07-11-2023 End: 2023 ambulatory Job R NILL Facility: [facility] Start: 07-11-2023 End: 07-11-2023 Patient encounter procedure Job R NILL [facility] Start: 06-20-2023 ambulatory Job R NILL Facility :[facility] Start: 07-31-2022 End: 08-01-[address] PRISCILLA SANCHEZ Facility: Start: 02-22-2022 End: 02-23-[address] PRISCILLA SANCHEZ Facility:[facility] Start: 02-03-2022 End: 02-04-[address] PRISCILLA SANCHEZ Facility:[facility] Procedures Date Procedure Procedure Detail Performing Clinician Start: 08-01-2023 Colonoscopy Job NI LL Start: 06-26-2018 Colonoscopy Job DE LEON LL Abdominal hysterectomy Sunil tima NEVAREZ Colonoscopy Job NILL Tonsillectomy Job NILL Immunizations Immunization Date Immunization Notes Care Provider Fa cility 10-20-2022 SARS-CoV-2 (COVID-19 ) [id number] Job MCMAHONL [facility] 09-06-2021 SARS-CoV-2 (COVID-19 ) mRNA BNT-162b2 vax Job MCMAHONL [facility] 02-08-2021 SARS-CoV-2 (COVID-19 ) mRNA BNT-162b2 vax Job MCMAHONL [facility] 01-17-2021 SARS-CoV-2 (COVID-19 ) mRNA BNT-162b2 vax Job MCMAHONL [facility] Payers Date Payer Category Payer Unknown [id number] 1959 Medicare [id number] 1955 Unknown [id number] 2.16.84 [id number] 1955 Unknown [id number] 2.16.84 [id number] 1955 Unknown [id number] 2.16.84 [id number] 1955 Unknown [id number] 2.16.8 [id number] 1955 Unknown [id number] 2.16.8 [id number] 1955 Unknown [id number] 2.16.8 [id number] 1955 Unknown [id number] 2.16.8 [id number] 1955 Unknown [id number] 2.16.8 [id number] 1955 Unknown [id number] 2.16.84 [id number] 1955 Unknown [id number] 2.16.84 [id number] Social History Date Type Detail Facility Start: 07-11-2023 Tobacco smoking status Never s moked tobacco (finding) [facility] Tobacco smoking status Never [facility] Sex Assigned At Female [facility] Functional Status Date Assessment Result Facility 07-11-2023 Functional Status N/A [facility] Clinical Note 07-11-2023 Note Date & Type Note Facility 07-11-2023 Note Chief Complaint consultation for surveillance colonoscopy HPI Staff 67 year old female presents on consultation from Dr. Sanchez for surveillance colonoscopy. Last colonoscopy completed 06/2018 with lymphoid aggregate. Mother with history of colon cancer, diagnosed age late 50's. Brother with history of colon cancer, diagnosed age 60. Denies abdominal or rectal pain. No rectal bleeding or change in bowel habits. Denies nausea or vomiting. No unexplained weight loss. History of Present Illness 67 yo female with h/o htn, hyperlipidemia, referred for surveillance colonoscopy; denies change in bms or blood in stools; no abd complaints; last colonoscopy 2017 with diverticulosis; abd operations significant for YEHUDA; no asa or NSAID use; fmhx of colon cancer in patient's mother dx in her 50's and brother dx at 60, no fmhx of IBD; no tobacco use. Review of Systems PHQ Score Initial Depression Screen Score: 0 ROS - Provider Constitutional: no fever, no sweats, no weight loss. Eyes: yes glasses, no blurred vision, no visual loss. ENMT: no dentures, no hoarseness, no swallowing difficulties, no hearing loss, no ear infection(s), no nose bleeds. Cardiovascular: normal blood pressure, no chest pain, regular heartbeat, no heart murmur. Respiratory: no shortness of breath, no cough, no asthma, no wheezing. Gastrointestinal: no nausea, no vomiting, no diarrhea, no constipation, no blood in stool, no change in bowel habits, no abdominal pain, no hepatitis. Genitourinary: no kidney stones, no urine infection, no dysuria. Musculoskeletal: no pain, no weakness. Skin: no changing moles, no rash, no skin lumps. Neurologic: no seizures, no epilepsy, no headache. Psychiatric: no emotional or psychiatric problem. Heme/Lymph: no bleeding problems, no anemia, no blood clots, no transfusions. Allergy/Immunologic: no swollen lymph nodes/glands, no IV drug abuse. Other: Additional ROS info: Except as noted in the above Review of Systems and in the History of Present Illness, all other systems have been reviewed and are negative or noncontributory. Physical Exam Vitals & Measurements HR: 72(Peripheral) RR: 16 BP: 126/86 HT: 69 in HT: 175.2 cm WT: 81.1 kg WT: 178.42 lb BMI: 26.42 HEENT: normal conjunctiva, sclera clear, no scleral icterus, EOM intact, PERRLA, oral mucosa moist without lesions. Neck: trachea midline, no mass, symmetric, no thyromegaly or nodules, no adenopathy Respiratory: lungs CTA, respirations non labored. Cardiovascular: regular rate and rhythm, no murmur, no pedal edema or varicosities. Gastrointestinal: soft, non distended, no tenderness, no masses, no palpable hernias, diastasis recti no, no hepatosplenomegaly; normal bs Lymphatic: no cervical adenopathy, no supraclavicular adenopathy. Musculoskeletal: normal gait, digits and nails without infection, nodes, cyanosis, clubbing. Skin: no rashes, no lesions, no ulcers, no subcutaneous nodules, induration. Psychiatric/Neuro: oriented to time, place, person, judgement normal, affect appropriate for age, insight intact, no focal deficits. Tests: review of old records completed, Discussed surgical options, risks, and possible complications with patient. Assessment/Plan 1. Screening for malignant neoplasm of colon (Z12.11: Encounter for screening for malignant neoplasm of colon) plan colonoscopy under anesthesia, informed consent obtained. Follow-up No qualifying data available Problem List/Past Medical History Ongoing BMI 26.0-26.9,adult Dyslipidemia Family history of colonic polyps HTN (hypertension) Overweight Prediabetes Screening for colorectal cancer Screening for malignant neoplasm of colon Seasonal allergies Ventricular ectopy Historical No qualifying data Procedure/Surgical History Colonoscopy (06/26/2018), Abdominal hysterectomy, Colonoscopy, Colonoscopy, Colonoscopy, Tonsillectomy. Medications Lipitor 20 mg Tab, 20 mg= 1 tab(s), Oral, Daily Metoprolol tartrate 25 mg Tab, 25 mg= 1 tab(s), Oral, BID Zestoretic 25 mg-20 mg Tab, 1 tab(s), Oral, Daily Allergies No Known Allergies No Known Medication Allergies Social History Alcohol - Denies Alcohol Use, 07/11/2023 Substance Abuse - Denies Substance Abuse, 07/11/2023 Tobacco Never (less than 100 in lifetime) Tobacco Use:. Never Smokeless Tobacco Use:., 07/11/2023 Family History Hypertension: Mother and Father. Primary malignant neoplasm of colon: Mother and Brother. Immunizations Vaccine Date Status SARS-CoV-2 (COVID-19) [id number] 10/20/2022 Recorded SARS-CoV-2 (COVID-19) mRNA BNT-162b2 vax 09/06/2021 Recorded SARS-CoV-2 (COVID-19) mRNA BNT-162b2 vax 02/08/2021 Recorded SARS-CoV-2 (COVID-19) mRNA BNT-162b2 vax 01/17/[address] [facility] Comment on above: Result Comment: Elec tronically Signed By: GERI STANTON, Job Pulliam\pete\Date and Time Signed: 07/11/23 14:51 EDT Evaluation + Plan note Note Date & Type Note Facility Evaluation + Plan note No data available for this section [facility] Discharge instructions Note Date & Type Note Facility Hospital Discharge instructions No data available for this section [facility] Progress note Note Date & Type Note Facility Progress note No data available for this section [facility] Summary Purpose Family History No Family History Records Found No data available for this section No Family History Records FoundNo Family History Records Found Advance Directives No Advanced Directives Records FoundNo Advanced Directives Records FoundNo Advanced Directives Records Found Additional Source Comments INFORMATION SOURCE (unrecogn ized section and content) DATE CREATED AUTHOR 11/22/2022 [facility] DATE CREATED AUTHOR AUTHOR'S ORGANIZ ATION 08/15/2023 [facility] DATE CREATED AUTHOR AUTHOR'S ORGANIZ ATION 07/08/2024 [facility] EPIC Patient Care team informatio n (unrecognized section and content) Personnel Name: PRISCILLA SANCHEZ MD Address: Address: [address] [place] [address] Personnel Name: PRISCILLA SANCHEZ MD Address: Address: [address] [place] [address] FOR RECORDS PERTAINING TO PATIENTS WHO ARE OR HAVE BEEN ENROLLED IN A CHEMICAL DEPENDENCY/SUBSTANCEABUSE PROGRAM, SOME INFORMATION MAY BE OMITTED. This clinical summary was aggregated from multiple sources. Caution should be exercised in using it in the provision of clinical care. This summary normalizes information from multiple sources, and as a consequence, information in this document may materially change the coding, format and clinical context of patient data. In addition, data may be omitted in some cases. CLINICAL DECISIONS SHOULD BE BASED ON THE PRIMARY CLINICAL RECORDS. [facility]. provides no warranty or guarantee of the accuracy or completeness of information in this document.
[2024-07-11 08:19] LABS: Basophils Percent Auto 0.2 % (0.2-2.0); Eosinophils Absolute Auto 0.1 10^3/uL (0.0-0.7); Eosinophils Percent Auto 1.9 % (0.9-7.0); Hematocrit 38.8 % (36.0-48.0); Immature Granulocytes Abs Auto 0.01 10^3/uL (0.00-0.03); Immature Granulocytes Pct Auto 0.2 % (0.0-0.5); Lymphocytes Absolute Auto 1.5 10^3/uL (1.2-3.8); Lymphocytes Percent Auto 23.7 % (20.5-60.0); Mean Corpuscular HGB Conc 33.5 g/dL (29.9-35.2); Mean Corpuscular Hemoglobin 31.3 pg (26.7-34.0); Mean Corpuscular Volume 93.5 fL (81.0-99.0); Mean Platelet Volume 10.4 fL (9.5-13.5); Monocytes Absolute Auto 0.5 10^3/uL (0.3-0.8); Monocytes Percent Auto 7.3 % (1.7-12.0); Neutrophils Absolute Auto 4.2 10^3/uL (1.4-6.5); Neutrophils Percent Auto 66.7 % (43.0-75.0); Platelet Count 224 10^3/uL (150-450); Red Blood Count 4.15 10^6/uL (4.20-5.40); Red Cell Distribution Width 12.5 % (11.0-15.0); White Blood Count 6.3 10^3/uL (4.0-11.0)
[2024-07-11 10:21] LABS: Alanine Aminotransferase 40 U/L (14-59); Albumin Level 3.7 g/dL (3.4-5.0); Alkaline Phosphatase 89 U/L (46-116); Anion Gap 11.5; Aspartate Amino Transferase 17 U/L (15-37); BUN Creatinine Ratio 24.5; Bilirubin Direct 0.2 mg/dL (0.0-0.2); Bilirubin Total 0.7 mg/dL (0.2-1.0); Calcium 9.8 mg/dL (8.5-10.1); Carbon Dioxide 29.4 mmol/L (21.0-32.0); Chloride 101 mmol/L (98-107); Chol HDL Ratio 2.1; Cholesterol 138 mg/dL (<=200); Estimated GFR (African America >60 (>=60); Estimated GFR (Non-African Ame 59 (>=60); Globulin 3.6 g/dL; Glucose 110 mg/dL (74-106); HDL Cholesterol 67 mg/dL (40-60); Potassium 3.9 mmol/L (3.5-5.1); Sodium 138 mmol/L (136-145); Thyroid Stimulating Hormone 2.043 uIU/mL (0.358-3.740); Total Protein 7.3 g/dL (6.4-8.2); Triglycerides 96 mg/dL (<=150); VLDL CHOLESTEROL 19.2 mg/dL
[2024-07-11 12:44] LABS: Estimated Average Glucose 120 mg/dL; Glycohemoglobin A1C 5.8 % (4.5-6.2)
== END 2024-07-11 08:00 | disposition home or self-care (01) ==
LOC: LAB 07:59
PROVIDERS: PCP Family Medicine; Visit Provider Family Medicine
DX: Z79.899 Other long term (current) drug therapy (principal); I10 Essential (primary) hypertension; R73.03 Prediabetes; E78.5 Hyperlipidemia, unspecified; E66.9 Obesity, unspecified
CPT/HCPCS: 36415; 80048; 80061; 80076; 83036; 84443; 85025

== ENCOUNTER 2024-08-28 10:52 | Outpatient (OUT) | payer MEDICARE, SELFPAY ==
--- NOTE | 2024-08-28 10:55 | US_ITS ---
Patient Name: MELLO KITCHEN MR#: [id number] : 1955 Exam Date: 08/28/2024 Ordering Doctor: DR Shaun Licona . RADIOLOGY REPORT PROCEDURE: MM TOMOSYNTHESIS DIAGNOSTIC BI, 08/28/2024, 10:54 US BREAST RT LIMITED, 08/28/2024, 11:15 COMPARISON: MM TOMOSYNTHESIS DIAGNOSTIC RT, 03/05/2024. MM DIAGNOSTIC MAMMO UNILAT RT, 08/22/2023. INDICATIONS: Abnormal Mammogram Calculator Name NCI Breast Cancer Risk Assessment Tool 5 Year Breast Cancer Risk 2.30% Lifetime Breast Cancer Risk 7.10% Personal Breast Cancer No Personal Ovarian Cancer No Treatments None Family Cancers Mother with colon cancer at age 60; Father with colon cancer at age 65. LOCATION: [facility] BREAST COMPOSITION: The breasts are heterogeneously dense,which may obscure small masses. FINDINGS: DIAGNOSTIC CATEGORY 2--BENIGN FINDING. NO CHANGE FROM COMPARISON. Scattered benign-appearing nodules are present. Scattered benign-appearing calcifications are present. Scattered benign-appearing lymph nodes are present. RIGHT BREAST: Stable cluster 5 microcalcifications, unchanged. Stable 1.5 x 0.8 mm circumscribed nodule upper inner quadrant, mid breast. Ultrasound of this region demonstrates a simple cyst measuring 1.2 x 0.7 x 1.0 cm with increased acoustic through transmission. Also identified is a small intramammary lymph node measuring 5.9 x 3.5 x 4.6 mm 12 o'clock right breast.. LEFT BREAST: No significant suspicious finding. RECOMMENDATIONS: ROUTINE MAMMOGRAM AND CLINICAL EVALUATION IN 12 MONTHS. PLEASE NOTE: A NORMAL MAMMOGRAM DOES NOT EXCLUDE THE POSSIBILITY OF BREAST CANCER. A CLINICALLY SUSPICIOUS PALPABLE LUMP SHOULD BE BIOPSIED. Dictated by: Luke Lindo MD on 08/28/2024 at 11:32 Approved by: Luke Lindo MD on 08/28/2024 at 11:36
--- OUTSIDE RECORDS SUMMARY | 2024-08-28 11:06 | XMS_ITS | CCD ---
Author Organization [facility] Care Team Providers Care Household Appliance Repairer Name Role Phone DANIEL, DR PRISCILLA Mayen [...] Medication Allergies] Propensity to adverse reactions (disorder) [facility] Repository Medications Current Medications Medication Drug Class(es) [...] 02-03-2022 Episodic Other aftercare (1 source) Other rodent exterminator (current) drug therapy; Translations: [OTH TEMPERER CURRENT DRUG THERAPY] Onset: 08-01-2022 Episodic Other [...] colon Seasonal allergies Ventricular ectopy Normal [facility] General Surgery Office/Clini c Noteon 08-14-2023 General [...] Brother. Immunizations Vaccine Date Status SARS-CoV-2 (COVID-19) mRNAMUL.ORD![id number] 10/20/2022 Recorded SARS-CoV-2 (COVID-19) mRNA BNT-162b2 vax 09/06/2021 Recorded SARS-CoV-2 (COVID-19) mRNA BNT-162b2 vax 02/08/2021 Recorded SARS-CoV-2 (COVID-19) mRNA BNT-162b2 vax 01/17/2021 Recorded Normal [facility] Comment on above: Result Comment: Elec tronically Signed By: GERI STANTON, Job Camacho\Date and Time Signed: 08/14/23 13:51 EDT Reminderson 08-14-2023 Reminders - From: Mayra Vivar LPN To: N - Clinical; Sent: 08/14/2023 13:31:54 EDT Show up: 07/01/2028 07:00:00 EDT Subject: colonoscopy recall Due Date/Time: 08/01/2028 07:00:00 EDT Reminder/Recall Patient due for surveillance colonoscopy 08/01/2028. Normal [facility] Outside Colonoscopyon 2022 Outside Colonoscopy [id number] .00CD:127 [facility] Consent for Procedure/Surger yon 2023 Consent for Procedure/Surgery [id number] .00CD:127 Normal [facility] Formson 2023 Forms [id number] .[id number]:127 [facility] Ambulatory Visit Summaryon 0 07-11-2023 Ambulatory Visit [...] colorectal cancer Seasonal allergies Ventricular ectopy Normal [facility] Physician Referralon 023 Physician Referral [id number] .[id number]:127 Normal [facility] CBC AUTO DIFFon 07-31-2022 BASO # 0.0 103/ul Normal 0.0-0.1 [facility] Comment on above: Performed By: #### C BC #### [facility] [address] [address] [address] Job Cerda Basophils/100 WBC (Bld) 0.3 % Normal 0.2-2.0 [facility] Comment on above: Performed By: #### C BC #### [facility] [address] [place] [address] Dr. Job Cerda EO # 0.2 103/ul Normal 0.0-0.7 [facility] Comment on above: Performed By: #### C BC #### [facility] [address] [address] [address] Job Cerda Eosinophils/100 WBC (Bld) 2.4 % Normal 0.9-7.0 [facility] Comment on above: Performed By: #### C BC #### [facility] [address] [address] [address] Job Cerda Erythrocyte distribution width (RBC) [Ratio] 13.6 % Normal 11.0-15.0 [facility] Comment on above: Performed By: #### C BC #### [facility] [address] [place] [address] Dr. Jbo Cerda Hematocrit (Bld) [Volume fraction] 40.1 % Normal 36.0-48.0 [facility] Comment on above: Performed By: #### C BC #### [facility] [address] [place] [address] Dr. Job Cerda Hemoglobin (Bld) [Mass/Vol] 13.5 g/dL Normal 12.0-16.0 [facility] Comment on above: Performed By: #### C BC #### [facility] [address] [place] [address] Dr. Job Cerda IG # 0.02 10e3/ul Normal 0.00-0.03 [facility] Comment on above: Performed By: #### C BC #### [facility] [address] [place] [address] Dr. Job Cerda IG % 0.3 % Normal 0.0-0.5 [facility] Comment on above: Performed By: #### C BC #### [facility] [address] [place] [address] Dr. Job Cerda LYMPH # 2.4 103/ul Normal 1.2-3.8 [facility] Comment on above: Performed By: #### C BC #### [facility] [address] [place] [address] Dr. Job Cerda Lymphocytes/100 WBC (Bld) 35.7 % Normal 20.5-60.0 [facility] Comment on above: Performed By: #### C BC #### [facility] [address] [place] [address] Dr. Job Cerda MANUAL DIFF REQ NO Normal [facility] Comment on above: Performed By: #### C BC #### [facility] [address] [place] [address] Dr. Job Cerda MCH (RBC) [Entitic mass] 32.0 pg Normal 26.7-34.0 [facility] Comment on above: Performed By: #### C BC #### [facility] [address] [place] [address] Dr. Job Cerda MCHC (RBC) [Mass/Vol] 33.7 g/dL Normal 29.9-35.2 [facility] Comment on above: Performed By: #### C BC #### [facility] [address] [place] [address] Dr. Job Cerda MCV (RBC) [Entitic vol] 95.0 fL Normal 81.0-99.0 [facility] Comment on above: Performed By: #### C BC #### [facility] [address] [place] [address] Dr. Job Cerda MONO # 0.6 103/ul Normal 0.3-0.8 [facility] Comment on above: Performed By: #### C BC #### [facility] [address] [place] [address] Dr. Job Cerda Monocytes/100 WBC (Bld) 8.4 % Normal 1.7-12.0 [facility] Comment on above: Performed By: #### C BC #### [facility] [address] [place] [address] Dr. Job Cerda NEUT # 3.5 103/ul Normal 1.4-6.5 [facility] Comment on above: Performed By: #### C BC #### [facility] [address] [place] [address] Dr. Job Cerda Neutrophils/100 WBC (Bld) 52.9 % Normal 43.0-75.0 [facility] Comment on above: Performed By: #### C BC #### [facility] [address] [place] [address] Dr. Job Cerda Platelet mean volume (Bld) [Entitic vol] 10.9 fL Normal 9.5-13.5 [facility] Comment on above: Performed By: #### C BC #### [facility] [address] [place] [address] Dr. Job Cerda PLT 177 103/ul Normal 150-450 [facility] Comment on above: Performed By: #### C BC #### [facility] [address] [place] [address] Dr. Job eCrda RBC 4.22 106/ul Normal 4.20-5.40 [facility] Comment on above: Performed By: #### C BC #### [facility] [address] [place] [address] Dr. Job Cerda WBC 6.7 103/ul Normal 4.0-11.0 [facility] Comment on above: Performed By: #### C BC #### [facility] [address] [place] [address] Dr. Job Cerda GLYCOHEMOGLOBIN A1Con 2021 ADA RECOMMENDATION SEE BELOW Normal [facility] Comment on above: Result Comment: ADA RECOMMENDED LIMIT 4.0 - 6.0 ADA THERAPEUTIC TARGET < 7.0 ACTION SUGGESTED > 7.0 Performed By: #### A 1C #### [facility] [address] [address] [address] Job Cerda Glucose [Mass/Vol] 120 mg/dL Normal [facility] Comment on above: Performed By: #### A 1C #### [facility] [address] [address] [address] Job Cerda HbA1c (Bld) [Mass fraction] 5.8 % Normal 4.5-6.2 [facility] Comment on above: Performed By: #### A 1C #### [facility] [address] [place] [address] Dr. Job Cerda LIPID PROFILEon 07-31-2022 CHOL-HDL RATIO NORM SEE BELOW Normal [facility] Comment on above: Result Comment: 3.3 - 4.4 LOW RISK 4.4 - 7.1 AVERAGE RISK 7.1 - 11.0 MODERATE RISK >11.0 HIGH RISK Performed By: #### T SH, BMP, LIVER, LIPID #### [facility] [address] [address] [address] Job Cerda Cholesterol [Mass/Vol] 139 mg/dL Normal <=200 [facility] Comment on above: Performed By: #### T SH, BMP, LIVER, LIPID #### [facility] [address] [address] [address] Job Cerda Cholesterol in HDL [Mass/Vol] 65 mg/dL Critically high 40-60 [facility] Comment on above: Performed By: #### T SH, BMP, LIVER, LIPID #### [facility] [address] [address] [address] Job Cerda Cholesterol in LDL [Mass/Vol] 57.8 mg/dL Normal [facility] Comment on above: Performed By: #### T SH, BMP, LIVER, LIPID #### [facility] [address] [address] [address] Job Cerda Cholesterol.total/Cho lesterol in HDL [Mass ratio] 2.1 {ratio} Normal [facility] Comment on above: Performed By: #### T SH, BMP, LIVER, LIPID #### [facility] [address] [address] [address] Job Cerda HDL NORMAL > or = 60 mg/dl - LO W CARDIOVASCULAR RISK <40 mg/dl - HIGH CARDIOVASCULAR RISK Normal [facility] Comment on above: Performed By: #### T SH, BMP, LIVER, LIPID #### [facility] [address] [address] [address] Job Cerda LDL CALC NORMAL SEE BELOW Normal [facility] Comment on above: Result Comment: <100 mg/dl OPTIMAL 100 - 129 mg/dl NEAR OR ABOVE OPTIMAL 130 - 159 mg/dl BORDERLINE HIGH 160 - 189 mg/dl HIGH >190 mg/dl VERY HIGH Performed By: #### T SH, BMP, LIVER, LIPID #### [facility] [address] [address] [address] Job Cerda Triglyceride [Mass/Vol] 81 mg/dL Normal <=150 [facility] Comment on above: Performed By: #### T SH, BMP, LIVER, LIPID #### [facility] [address] [address] [address] Job Cerda VLDL CALC 16.2 mg/dL Normal [facility] Comment on above: Performed By: #### T SH, BMP, LIVER, LIPID #### [facility] [address] [address] [address] Job Cerda LIVER PROFILEon 07-31-2022 Albumin [Mass/Vol] 3.8 g/dL Normal 3.4-5.0 [facility] Comment on above: Performed By: #### T SH, BMP, LIVER, LIPID #### [facility] [address] [place] [address] Dr. Job Cerda Albumin/Globulin [Mass ratio] 1.1 {ratio} Normal [facility] Comment on above: Performed By: #### T SH, BMP, LIVER, LIPID #### [facility] [address] [address] [address] Job Cerda ALP [Catalytic activity/Vol] 79 U/L Normal 46-116 [facility] Comment on above: Performed By: #### T SH, BMP, LIVER, LIPID #### [facility] [address] [address] [address] Job Cerda ALT [Catalytic activity/Vol] 33 U/L Normal 14-59 [facility] Comment on above: Performed By: #### T SH, BMP, LIVER, LIPID #### [facility] [address] [address] [address] Job Cerda AST [Catalytic activity/Vol] 13 U/L Critically low 15-37 [facility] Comment on above: Performed By: #### T SH, BMP, LIVER, LIPID #### [facility] [address] [address] [address] Job Cerda BILI, CONJUGATED 0.2 mg/dL Normal 0.0-0.2 [facility] Comment on above: Performed By: #### T SH, BMP, LIVER, LIPID #### [facility] [address] [address] [address] Job Cerda Bilirubin [Mass/Vol] 0.7 mg/dL Normal 0.2-1.0 [facility] Comment on above: Performed By: #### T SH, BMP, LIVER, LIPID #### [facility] [address] [address] [address] Job Cerda Globulin (S) [Mass/Vol] 3.4 g/dL Normal [facility] Comment on above: Performed By: #### T SH, BMP, LIVER, LIPID #### [facility] [address] [address] [address] Job Cerda Protein [Mass/Vol] 7.2 g/dL Normal 6.4-8.2 [facility] Comment on above: Performed By: #### T SH, BMP, LIVER, LIPID #### [facility] [address] [place] [address] Dr. Job Cerda MG MAMM SCREEN 3D TASHIA CADon 07-31-2022 MG MAMM SCREEN 3D TASHIA CAD Patient: MELLO KITCHEN Exam Date: 07/31/2022 : 1955 Gender:F Ordering : DR PRISCILLA SANCHEZ . Admission #: [id number] Family : Order #: [id number] CLICK HERE TO VIEW EXAM RADIOLOGY REPORT [...] colon cancer at age 65. LOCATION: [facility] BREAST COMPOSITION: Heterogeneously dense,which may obscure [...] Javed M.D. on 07/31/2022 at 11:56 Normal [facility] PROF CHEM 8 (BAS METB)on Anion gap [Moles/Vol] 10.1 mmol/L Normal [facility] Comment on above: Performed By: #### T SH, BMP, LIVER, LIPID #### [facility] [address] [address] [address] Job Cerda Calcium [Mass/Vol] 9.2 mg/dL Normal 8.5-10.1 [facility] Comment on above: Performed By: #### T DONNA, BMP, LIVER, LIPID #### [facility] [address] [place], [place] [address] Dr. Job Cerda Chloride [Moles/Vol] 103 mmol/L Normal 98-107 [facility] Comment on above: Performed By: #### T SH, BMP, LIVER, LIPID #### [facility] [address] [address] [address] Job Cerda CO2 [Moles/Vol] 30.6 mmol/L Normal 21.0-32.0 [facility] Comment on above: Performed By: #### T SH, BMP, LIVER, LIPID #### [facility] [address] [address] [address] Job Cerda Creatinine [Mass/Vol] 1.00 mg/dL Normal 0.55-1.02 [facility] Comment on above: Performed By: #### T SH, BMP, LIVER, LIPID #### [facility] [address] [address] [address] Job Cerda EGFR-AF BAHRAINI >60 Normal >=60 [facility] Comment on above: Performed By: #### T SH, BMP, LIVER, LIPID #### [facility] [address] [place] [address] Dr. Job Cerda EGFR-NON AF BAHRAINI 55 mL/min/1.73m2 Critically low >=60 [facility] Comment on above: Performed By: #### T SH, BMP, LIVER, LIPID #### [facility] [address] [address] [address] Job Cerda Glucose [Mass/Vol] 115 mg/dL Critically high 74-106 [facility] Comment on above: Performed By: #### T SH, BMP, LIVER, LIPID #### [facility] [address] [address] [address] Job Cerda Potassium [Moles/Vol] 3.7 mmol/L Normal 3.5-5.1 [facility] Comment on above: Performed By: #### T SH, BMP, LIVER, LIPID #### [facility] [address] [address] [address] Job Cerda Sodium [Moles/Vol] 140 mmol/L Normal 136-145 [facility] Comment on above: Performed By: #### T SH, BMP, LIVER, LIPID #### [facility] [address] [address] [address] Job Cerda Urea nitrogen [Mass/Vol] 20.0 mg/dL Critically high 7.0-18.0 [facility] Comment on above: Performed By: #### T DONNA, BMP, LIVER, LIPID #### [facility] [address] [address] [address] Job Cerda Urea nitrogen/Creatinine [Mass ratio] 20.0 mg/mg Normal [facility] Comment on above: Performed By: #### T DONNA, BMP, LIVER, LIPID #### [facility] [address] [address] [address] Job Cerda TSHon 07-31-2022 TSH 3.723 uIU/mL Normal 0.358-3.740 [facility] Comment on above: Performed By: #### T DONNA, BMP, LIVER, LIPID #### [facility] [address] [address] [address] Job Cerda ECHOCARDIO M/2D COMPLETEon 0 02-22-2022 ECHOCARDIO M/2D COMPLETE Patient: MELLO KITCHEN Exam Date: 02/22/2022 : 1955 Gender:F Ordering : DR PRISCILLA SANCHEZ . Admission #: [id number] Family : Order #: [id number] CLICK HERE TO VIEW EXAM ECHOCARDIOGRAM REPORT [...] Area(A4C): 14.30 cm2 Left Atrium Systolic Volume(A2C): 25142 mm3 Left Atrium Systolic Volume(A4C): 25716 mm3 Mitral Valve MV E to A [...] Fiore M.D. on 02/22/2022 at 18:37 Normal [facility] Vital Signs Date Time Vital Sign Value Performing Clinician Faci eve 08-30-2023 14:16-0400 Blood Pressure Location Job NILL [facility] 07-11-2023 14:16-0400 Diastolic blood pressure 86 mm[Hg] Job N[facility] 07-11-2023 14:16-0400 Heart rate 72 /min Job NILL [facility] 07-11-2023 14:16-0400 Respiratory rate 16 /min Job NILL [facility] 07-11-2023 14:16-0400 Systolic blood pressure 126 mm[Hg] Job NILL [facility] Encounters Encounter Date Encounter Type Care Provider Facility Start: 07-07-2024 End: 07-07-2024 ambulatory PRISCILLA SANCHEZ Not Available Start: 01-02-2024 End: 01-02-2024 ambulatory PRISCILLA SANCHEZ Not Available Start: 08-14-2023 End: 08-15-2023 ambulatory Job R NILL Facility: [facility] Start: 08-14-2023 End: 08-14-2023 Patient encounter procedure Job R NILL [facility] Start: 08-08-2023 ambulatory Job NILL Facility:[facility] Start: 08-01-2023 End: 08-02-2023 ambulatory Job R NILL Facility:[id number] Start: 07-11-2023 End: 2023 ambulatory Job R NILL Facility: [facility] Start: 07-11-2023 End: 07-11-2023 Patient encounter procedure Job R NILL [facility] Start: 06-20-2023 ambulatory Job R NILL Facility [...] Provider Fa cility 10-20-2022 SARS-CoV-2 (COVID-19 ) mRNAMUL.ORD![id number] Job [facility] 09-06-2021 SARS-CoV-2 (COVID-19 ) mRNA BNT-162b2 vax Job [facility] 02-08-2021 SARS-CoV-2 (COVID-19 ) mRNA BNT-162b2 vax Job [facility] 01-17-2021 SARS-CoV-2 (COVID-19 ) mRNA BNT-162b2 vax Job [facility] Payers Date Payer Category Payer Unknown [id number] 1959 Medicare [id number] 1955 Unknown [id number] 2.16.84 [id number] 1955 Unknown [id number] 2.16.84 [id number] 1955 Unknown [id number] 2.16.84 [id number] 1955 Unknown [id number] 2.16.8 [id number] 1955 Unknown [id number] 2.16.8 [id number] 1955 Unknown [id number] 2.16.8 [id number] 1955 Unknown [id number] 2.16.8 [id number] 1955 Unknown [id number] 2.16.8 [id number] 1955 Unknown [id number] 2.16.84 [id number] 1955 Unknown [id number] 2.16.84 [id number] Social History Date Type Detail Facility Start: 07-11-2023 Tobacco smoking status Never s moked tobacco (finding) [facility] Tobacco smoking status Never [facility] Sex Assigned At Female [facility] Functional Status Date Assessment Result Facility 07-11-2023 Functional Status N/A [facility] Clinical Note 07-11-2023 Note Date & Type [...] Brother. Immunizations Vaccine Date Status SARS-CoV-2 (COVID-19) mRNAMUL.ORD![id number] 10/20/2022 Recorded SARS-CoV-2 (COVID-19) mRNA BNT-162b2 vax 09/06/2021 Recorded SARS-CoV-2 (COVID-19) mRNA BNT-162b2 vax 02/08/2021 Recorded SARS-CoV-2 (COVID-19) mRNA BNT-162b2 vax 01/17/2021 Recorded [facility] Comment on above: Result Comment: Elec tronically Signed By: GERI STANTON, Job Pulliam\pete\Date and Time Signed: 07/11/23 14:51 EDT Evaluation + Plan note Note Date & Type Note Facility Evaluation + Plan note No data available for this section [facility] Discharge instructions Note Date & Type Note Facility Hospital Discharge instructions No data available for this section [facility] Progress note Note Date & Type Note [...] AUTHOR'S ORGANIZ ATION 08/15/2023 [facility] DATE CREATED AUTHOR AUTHOR'S ORGANIZ ATION 07/08/2024 [facility] EPIC Patient Care team informatio n (unrecognized section and content) Personnel Name: PRISCILLA SANCHEZ MD Address: Address: [address] [place] [address] Personnel Name: PRISCILLA SANCHEZ MD Address: Address: [address] [place] [address] FOR RECORDS PERTAINING TO PATIENTS WHO ARE [...] BE BASED ON THE PRIMARY CLINICAL RECORDS. [facility]. provides no warranty or guarantee of the accuracy or completeness of information in this document.
--- NOTE | 2024-08-28 11:15 | MM_ITS ---
Patient Name: MELLO KITCHEN MR#: [id number] : 1955 Exam Date: 08/28/2024 Ordering Doctor: DR Shaun Licona . RADIOLOGY REPORT PROCEDURE: MM TOMOSYNTHESIS DIAGNOSTIC BI, 08/28/2024, 10:54 US BREAST RT LIMITED, 08/28/2024, 11:15 COMPARISON: MM TOMOSYNTHESIS DIAGNOSTIC RT, 03/05/2024. MM DIAGNOSTIC MAMMO UNILAT RT, 08/22/2023. INDICATIONS: Abnormal Mammogram Calculator Name NCI Breast Cancer Risk Assessment Tool 5 Year Breast Cancer Risk 2.30% Lifetime Breast Cancer Risk 7.10% Personal Breast Cancer No Personal Ovarian Cancer No Treatments None Family Cancers Mother with colon cancer at age 60; Father with colon cancer at age 65. LOCATION: [facility] BREAST COMPOSITION: The breasts are heterogeneously dense,which may obscure small masses. FINDINGS: DIAGNOSTIC CATEGORY 2--BENIGN FINDING. NO CHANGE FROM COMPARISON. Scattered benign-appearing nodules are present. Scattered benign-appearing calcifications are present. Scattered benign-appearing lymph nodes are present. RIGHT BREAST: Stable cluster 5 microcalcifications, unchanged. Stable 1.5 x 0.8 mm circumscribed nodule upper inner quadrant, mid breast. Ultrasound of this region demonstrates a simple cyst measuring 1.2 x 0.7 x 1.0 cm with increased acoustic through transmission. Also identified is a small intramammary lymph node measuring 5.9 x 3.5 x 4.6 mm 12 o'clock right breast.. LEFT BREAST: No significant suspicious finding. RECOMMENDATIONS: ROUTINE MAMMOGRAM AND CLINICAL EVALUATION IN 12 MONTHS. PLEASE NOTE: A NORMAL MAMMOGRAM DOES NOT EXCLUDE THE POSSIBILITY OF BREAST CANCER. A CLINICALLY SUSPICIOUS PALPABLE LUMP SHOULD BE BIOPSIED. Dictated by: Luke Lindo MD on 08/28/2024 at 11:32 Approved by: Luke Lindo MD on 08/28/2024 at 11:36
== END 2024-08-28 10:53 | disposition home or self-care (01) ==
LOC: MAMMO 10:52
PROVIDERS: PCP Family Medicine; Visit Provider Family Medicine
DX: R92.8 Other abnormal and inconclusive findings on diagnostic imaging of breast (principal); Z80.0 Family history of malignant neoplasm of digestive organs; R92.0 Mammographic microcalcification found on diagnostic imaging of breast; N63.12 Unspecified lump in the right breast, upper inner quadrant
CPT/HCPCS: 76642; 77066; G0279

== ENCOUNTER 2024-12-04 13:28 | Outpatient (OUT) | payer MEDICARE, SELFPAY ==
[2024-12-04] MEDS: VARICELLA-ZOSTER GE VAC,2 OF 2 0.5 ML VIAL IM (14:04)
== END 2024-12-04 13:29 | disposition home or self-care (01) ==
LOC: VACCLI 13:28
PROVIDERS: PCP Family Medicine; Visit Provider Family Medicine
DX: Z23 Encounter for immunization (principal)
CPT/HCPCS: 90750

== ENCOUNTER 2025-03-02 12:44 | Outpatient (OUT) | payer MEDICARE, SELFPAY ==
--- OUTSIDE RECORDS SUMMARY | 2025-03-02 13:11 | XMS_ITS | CCD ---
Author Organization [facility] Care Team Providers Care Electrical Appliance Repairer Name Role Phone DANIEL, DR SHAUN Mayen Admitting Unavailable NADERER, DR SHAUN Mayen Attending Unavailable NADERER, DR SHAUN Mayen Primary Care Unavailable ZIEBER, DR OSMAN Pulliam Consulting Unavailable NADERER, DR SHAUN Mayen Consulting Unavailable NADERER, DR SHAUN Mayen Admitting Unavailable NADERER, DR SHAUN Mayen Attending Unavailable NADERER, DR SHAUN Mayen Primary Care Unavailable NADERER, DR SHAUN Mayen Consulting Unavailable NADERER, DR SHAUN Mayen Admitting Unavailable NADERER, DR SHAUN Mayen Attending Unavailable NADERER, DR SHAUN Mayen Primary Care Unavailable NADERER, DR SHAUN Mayen Consulting Unavailable NADEREHeraclio, SHAUN Primary Care Physician GERI, Job Pulliam Attending Unavailable NILL, Job Pulliam Attending Unavailable NADERER, SHAUN Referring Unavailable NILL, Job Pulliam Attending Unavailable NILL, Job Pulliam Attending Unavailable NILL, Job Pulliam Attending Unavailable Naderer Shaun STANTON Primary Care Provider Shaun Sanchez MD Unavailable SHAUN SANCHEZ Attending Unavailable NADERER, SHAUN Attending Unavailable NADERER, SHAUN Attending Unavailable Allergies Allergy Classification Reported Allergen(s) Allergy Type Date of Onset Reaction(s) Facility (1 source) No Known Medication Allergies; Translations: [No Known Medication Allergies] Propensity to adverse reactions (disorder) [facility] Repository Medications Current Medications Medication Drug Class(es) Dates Sig (Normalized) Sig (Original) atorvastatin 20 mg oral tablet (9 sources) HMG-CoA Reductase Inhibitor Start: 07-21-2024 take 1 tablet by mouth at bedtime atorvastatin (Lipitor) 20 MG tablet Indications: Dyslipidemia (CMS/HCC) TAKE 1 TABLET BY MOUTH AT BEDTIME 90 tablet 3 07/21/2024 Active Start: 10-25-2023 take 1 tablet by zaid th at bedtime atorvastatin (Lipitor) 20 MG tablet Take 1 tablet by mouth at bedtime 10/25/2023 Active Start: 07-06-2023 take 1 tablet by zaid th once daily Lipitor 20 mg Tab 20 mg = 1 tab(s), Oral, Daily, Refills(s) 0 Start Date: 07/06/23 Status: Ordered cetirizine hydrochloride 10 mg oral tablet (7 sources) Histamine-1 Receptor Antagonist take 1 tablet by mouth in the morning cetirizine (ZyrTEC) 10 MG tablet Take 1 tablet by mouth in the morning. Active hydroCHLOROthiazide 25 mg / lisinopril 20 mg oral tablet (9 sources) Thiazide Diuretic, Angiotensin Converting Enzyme Inhibitor Start: 07-21-20 take 1 tablet by mouth once daily lisinopril-hydroC HLOROthiazide 20-25 MG tablet Indications: Essential hypertension, benign (CMS/HCC) TAKE 1 TABLET BY MOUTH DAILY 90 tablet 3 07/21/2024 Active Start: 10-25-2023 take 1 tablet by zaid th in the morning lisinopril-hydroCHLOROthiazide 20-25 MG tablet Take 1 tablet by mouth in the morning. 10/25/2023 Active Start: 07-06-2023 take 1 tablet by zaid th once daily Zestoretic 25 mg-20 mg Tab 1 tab(s), Ora l, Daily, Refill(s) 0 Start Date: 07/06/23 Status: Ordered metoprolol tartrate 25 mg oral tablet (9 sources) beta-Adrenergic Anselmo Start: 08-20-2024 take 1 tablet by mouth twice daily metoprolol tartrate (Lopressor) 25 MG tablet Indications: Essential hypertension, benign (CMS/HCC) TAKE 1 TABLET BY MOUTH TWICE DAILY 180 tablet 3 08/20/2024 Active Start: 11-24-2023 take 1 tablet by zaid th in the morning metoprolol tartrate (Lopressor) 25 MG tablet Take 1 tablet by mouth in the morning and 1 tablet before bedtime. 11/24/2023 Active Start: 07-06-2023 take 1 tablet by zaid th twice daily Metoprolol tartrate 25 mg Tab 25 mg = 1 tab(s), Oral, BID, Refills(s) 0 Start Date: 07/06/23 Status: Ordered Problems Active Problems Problem Classification Problem Date Documented Da te Episodic/Chronic Cardiac dysrhythmias (12 sources) Ventricular premature depolarization; Translations: [Ventricular arrhythmia] Onset: 02-24-2022 07-06-2023 Chronic Disorders of lipid metabolism (15 sources) Hyperlipidemia, unspecified; Translations: [Dyslipidemia] Onset: 07-31-2022 Chronic Diverticulosis and diverticulitis (2 sources) Diverticula of intestine; Translations: [Diverticulosis of large intestine without perforation or abscess without bleeding] Onset: 08-14-2023 Chronic Essential hypertension (12 sources) Essential (primary) hypertension; Translations: [Hypertensive disorder] Onset: 08-01-2022 07-06-2023 Chronic Heart valve disorders (1 source) Rheumatic tricuspid insufficiency; Translations: [RHEUMATIC TRICUSPID INSUFFICIENCY] Onset: 02-24-2022 Chronic Other and unspecified benign neoplasm (2 sources) Benign neoplasm of sigmoid colon; Translations: [Benign neoplasm of sigmoid colon] Onset: 08-14-2023 Episodic Other nutritional; endocrine; and metabolic disorders (8 sources) Body mass index 30+ - obesity; Translations: [Obesity, unspecified] Onset: 07-07-2024 07-07-2024 Chronic Other nutritional; endocrine; and metabolic disorders (2 sources) Overweight 07-06-2023 Episodic Other nutritional; endocrine; and metabolic disorders (2 sources) Overweight in adulthood with body mass index of 25 or more but less than 30 07-11-2023 Episodic Other screening for suspected conditions (not mental disorders or infectious disease) (5 sources) Encounter for screening mammogram for malignant neoplasm of breast; Translations: [Screening for malignant neoplasm of colon done] Onset: 08-01-2022 Episodic Other upper respiratory disease (2 sources) Seasonal allergy 07-06-2023 Chronic Other upper respiratory disease (9 sources) Allergic rhinitis due to pollen; Translations: [Allergic rhinitis due to pollen] Onset: 01-02-2024 01-02-2024 Chronic Residual codes; unclassified (2 sources) Family history of polyp of colon 07-11-2023 Episodic Residual codes; unclassified (1 source) Family history of malignant neoplasm of digestive organ; Translations: [Family history of malignant neoplasm of digestive organs] Onset: 08-14-2023 Episodic Residual codes; unclassified (1 source) Family history of cancer of colon 10-03-2023 Episodic Unclassified (4 sources) Patient encounter status 07-06-2023 Past or Other Problems Problem Classification Problem Date Documented Da te Episodic/Chronic Cardiac dysrhythmias (4 sources) Palpitations; Translations: [PALPITATIONS] Onset: 02-03-2022 Episodic Diabetes mellitus without complication (12 sources) Prediabetes; Translations: [Prediabetes] Onset: 08-01-2022 07-06-2023 Episodic Mood disorders (2 sources) Mood disorders Onset: 10-22-2024 10-22-2024 Other aftercare (1 source) Other group home (current) drug therapy; Translations: [OTH LIQUOR RUNNER CURRENT DRUG THERAPY] Onset: 08-01-2022 Episodic Other aftercare (3 sources) Long-term current use of drug therapy; Translations: [Other termite exterminator (current) drug therapy] Onset: 07-07-2024 07-07-2024 Episodic Other aftercare (5 sources) Patient encounter status; Translations: [Other termite exterminator (current) drug therapy] Onset: 07-07-2024 07-07-2024 Episodic Other lower respiratory disease (4 sources) Shortness of breath; Translations: [SHORTNESS OF BREATH] Onset: 02-22-2022 Episodic Other nutritional; endocrine; and metabolic disorders (1 source) Overweight; Translations: [OVERWEIGHT] Onset: 08-01-2022 Episodic Residual codes; unclassified (1 source) Family history of malignant neoplasm of digestive organs; Translations: [FAM HX MALIG NEOPLASM DIGESTIV ORGN] Onset: 08-01-2022 Episodic Results Test Name Value Interpretation Reference Range Facility ALL CBC WITH AUTO DIFFon BASOPHILS ABSOLUTE AUTO 0.0 [facility] Basophils/100 WBC (Bld) 0.2 % 0.2 - 2.0 % [facility] Eosinophils/100 WBC (Bld) 1.9 % 0.9 - 7.0 % [facility] Erythrocyte distribution width (RBC) [Ratio] 12.5 % 11.0 - 15.0 % [facility] Hematocrit (Bld) [Volume fraction] 38.8 % 36.0 - 48.0 % [facility] Hemoglobin (Bld) [Mass/Vol] 13.0 g/dL 12.0 - 16.0 g/dL [facility] IMMATURE GRANULOCYTES ABS AUTO 0.01 [facility] Immature granulocytes/100 WBC (Bld) 0.2 % 0.0 - 0.5 % [facility] Interpretation and review of laboratory results Abnormal [facility] LYMPHOCYTES ABSOLUTE AUTO 1.5 [facility] Lymphocytes/100 WBC (Bld) 23.7 % 20.5 - 60.0 % [facility] MCH (RBC) [Entitic mass] 31.3 pg 26.7 - 34.0 pg [facility] MCHC (RBC) [Mass/Vol] 33.5 g/dL 29.9 - 35.2 g/dL [facility] MCV (RBC) [Entitic vol] 93.5 fL 81.0 - 99.0 fL [facility] MONOCYTES ABSOLUTE AUTO 0.5 [facility] Monocytes/100 WBC (Bld) 7.3 % 1.7 - 12.0 % [facility] NEUTROPHILS ABSOLUTE AUTO 4.2 [facility] Neutrophils/100 WBC (Bld) 66.7 % 43.0 - 75.0 % [facility] Platelet mean volume (Bld) [Entitic vol] 10.4 fL 9.5 - 13.5 fL [facility] TBH EO # 0.1 [facility] PLT 224 [facility] RBC 4.15 Low [facility] TB WBC 6.3 [facility] Ambulatory Visit Summaryon 1 Ambulatory Visit Summary CHRISTELLE MOHAN :1955 Visit Date:08/14/2023 Ambulatory Visit Instructions Your Care Team Attending Physician - GERI STANTON, Job Pulliam Primary Care Physician - SHAUN SANCHEZ MD This Is Your Medications List atorvastatin (Lipitor [...] colon Seasonal allergies Ventricular ectopy Normal Kael [facility] General Surgery Office/Clini c Noteon 08-14-2023 General [...] Brother. Immunizations Vaccine Date Status SARS-CoV-2 (COVID-19) mRNAMUL.ORD![id number] 10/20/2022 Recorded SARS-CoV-2 (COVID-19) mRNA BNT-162b2 vax 09/06/2021 Recorded SARS-CoV-2 (COVID-19) mRNA BNT-162b2 vax 02/08/2021 Recorded SARS-CoV-2 (COVID-19) mRNA BNT-162b2 vax 01/17/2021 Recorded Normal [place] Comment on above: Result Comment: Elec tronically Signed By: GERI STANTON, Job Camacho\Date and Time Signed: 08/14/23 13:51 EDT Reminderson 08-14-2023 Reminders - From: Mayra Vivar LPN To: N - Clinical; Sent: 08/14/2023 13:31:54 EDT Show up: 07/01/2028 07:00:00 EDT Subject: colonoscopy recall Due Date/Time: 08/01/2028 07:00:00 EDT Reminder/Recall Patient due for surveillance colonoscopy 08/01/2028. Normal [facility] Outside Colonoscopyon 2022 Outside Colonoscopy [id number] .00CD:127 Normal [facility] Consent for Procedure/Surger yon 2023 Consent for Procedure/Surgery [id number] .00CD:127 Normal [facility] Formson 2023 Forms [id number] .00CD:127 [facility] Ambulatory Visit Summaryon 0 07-11-2023 Ambulatory Visit Summary CHRISTELLE MOHAN :1955 Visit Date:07/11/2023 Ambulatory Visit Instructions Your Care Team Attending Physician - GERI STANTON, Job Pulliam Primary Care Physician - DANIEL STANTON, SHAUN Referring Physician - SHAUN SANCHEZ MD This Is Your Medications List Contact prescribing [...] colorectal cancer Seasonal allergies Ventricular ectopy Normal [facility] Physician Referralon 023 Physician Referral [id number] .[id number]:127 Normal [facility] CBC AUTO DIFFon 07-31-2022 BASO # 0.0 103/ul Normal 0.0-0.1 [facility] Comment on above: Performed By: #### C BC #### [facility] [address] [place] [address] Dr. Job Cerda Basophils/100 WBC (Bld) 0.3 % Normal 0.2-2.0 [facility] Comment on above: Performed By: #### C BC #### [facility] [address] [address] [address] Job Cerda EO # 0.2 103/ul Normal 0.0-0.7 [facility] Comment on above: Performed By: #### C BC #### [facility] [address] [address] [address] Job Cerda Eosinophils/100 WBC (Bld) 2.4 % Normal 0.9-7.0 [facility] Comment on above: Performed By: #### C BC #### [facility] [address] [address] [address] Job Cerda Erythrocyte distribution width (RBC) [Ratio] 13.6 % Normal 11.0-15.0 [facility] Comment on above: Performed By: #### C BC #### [facility] [address] [place] [address] Dr. Job Cerda Hematocrit (Bld) [Volume fraction] 40.1 % Normal 36.0-48.0 [facility] Comment on above: Performed By: #### C BC #### [facility] [address] [place] [address] Dr. Job Cerda Hemoglobin (Bld) [Mass/Vol] 13.5 g/dL Normal 12.0-16.0 [facility] Comment on above: Performed By: #### C BC #### [facility] [address] [place] [address] Dr. Job Cerda IG # 0.02 10e3/ul Normal 0.00-0.03 [facility] Comment on above: Performed By: #### C BC #### [facility] [address] [place] [address] Dr. Job Cerda IG % 0.3 % Normal 0.0-0.5 [facility] Comment on above: Performed By: #### C BC #### [facility] [address] [place] [address] Dr. Job Cerda LYMPH # 2.4 103/ul Normal 1.2-3.8 [facility] Comment on above: Performed By: #### C BC #### [facility] [address] [place] [address] Dr. Job Cerda Lymphocytes/100 WBC (Bld) 35.7 % Normal 20.5-60.0 [facility] Comment on above: Performed By: #### C BC #### [facility] [address] [place] [address] Dr. Job Cerda MANUAL DIFF REQ NO Normal [facility] Comment on above: Performed By: #### C BC #### [facility] [address] [place] [address] Dr. Job Cerda MCH (RBC) [Entitic mass] 32.0 pg Normal 26.7-34.0 [facility] Comment on above: Performed By: #### C BC #### [facility] [address] [place] [address] Dr. Job Cerda MCHC (RBC) [Mass/Vol] 33.7 g/dL Normal 29.9-35.2 [facility] Comment on above: Performed By: #### C BC #### [facility] [address] [place] [address] Dr. Job Cerda MCV (RBC) [Entitic vol] 95.0 fL Normal 81.0-99.0 [facility] Comment on above: Performed By: #### C BC #### [facility] [address] [address] [address] Job Cerda MONO # 0.6 103/ul Normal 0.3-0.8 [facility] Comment on above: Performed By: #### C BC #### [facility] [address] [address] [address] Job Cerda Monocytes/100 WBC (Bld) 8.4 % Normal 1.7-12.0 [facility] Comment on above: Performed By: #### C BC #### [facility] [address] [place] [address] Dr. Job Cerda NEUT # 3.5 103/ul Normal 1.4-6.5 [facility] Comment on above: Performed By: #### C BC #### [facility] [address] [place] [address] Dr. Job Cerda Neutrophils/100 WBC (Bld) 52.9 % Normal 43.0-75.0 [facility] Comment on above: Performed By: #### C BC #### [facility] [address] [place] [address] Dr. Job Cerda Platelet mean volume (Bld) [Entitic vol] 10.9 fL Normal 9.5-13.5 [facility] Comment on above: Performed By: #### C BC #### [facility] [address] [place] [address] Dr. Job Cerda PLT 177 103/ul Normal 150-450 [facility] Comment on above: Performed By: #### C BC #### [facility] [address] [place] [address] Dr. Job Cerda RBC 4.22 106/ul Normal 4.20-5.40 [facility] Comment on above: Performed By: #### C BC #### [facility] [address] [place] [address] Dr. Job Cerda WBC 6.7 103/ul Normal 4.0-11.0 [facility] Comment on above: Performed By: #### C BC #### [facility] [address] [address] [address] Job Cerda GLYCOHEMOGLOBIN A1Con 2021 ADA RECOMMENDATION SEE BELOW Normal [facility] Comment on above: Result Comment: ADA RECOMMENDED LIMIT 4.0 - 6.0 ADA THERAPEUTIC TARGET < 7.0 ACTION SUGGESTED > 7.0 Performed By: #### A 1C #### [facility] [address] [address] [address] Job Cerda Glucose [Mass/Vol] 120 mg/dL Normal [facility] Comment on above: Performed By: #### A 1C #### [facility] [address] [address] [address] Job Cerda HbA1c (Bld) [Mass fraction] 5.8 % Normal 4.5-6.2 [facility] Comment on above: Performed By: #### A 1C #### [facility] [address] [place] [address] Dr. Job Cerda LIPID PROFILEon 07-31-2022 CHOL-HDL RATIO NORM SEE BELOW Normal [facility] Comment on above: Result Comment: 3.3 - 4.4 LOW RISK 4.4 - 7.1 AVERAGE RISK 7.1 - 11.0 MODERATE RISK >11.0 HIGH RISK Performed By: #### T SH, BMP, LIVER, LIPID #### [facility] [address] [place] [address] Dr. Job Cerda Cholesterol [Mass/Vol] 139 mg/dL Normal <=200 [facility] Comment on above: Performed By: #### T SH, BMP, LIVER, LIPID #### [facility] [address] [place] [address] Dr. Job Cerda Cholesterol in HDL [Mass/Vol] 65 mg/dL Critically high 40-60 [facility] Comment on above: Performed By: #### T SH, BMP, LIVER, LIPID #### [facility] [address] [place] [address] Dr. Job Cerda Cholesterol in LDL [Mass/Vol] 57.8 mg/dL Normal [facility] Comment on above: Performed By: #### T SH, BMP, LIVER, LIPID #### [facility] [address] [address] [address] Job Cerda Cholesterol.total/Ch olesterol in HDL [Mass ratio] 2.1 {ratio} Normal [facility] Comment on above: Performed By: #### T SH, BMP, LIVER, LIPID #### [facility] [address] [address] [address] Job Cerda HDL NORMAL > or = 60 mg/dl - LO W CARDIOVASCULAR RISK <40 mg/dl - HIGH CARDIOVASCULAR RISK Normal [facility] Comment on above: Performed By: #### T SH, BMP, LIVER, LIPID #### [facility] [address] [address] [address] Job Cerda LDL CALC NORMAL SEE BELOW Normal [facility] Comment on above: Result Comment: <100 mg/dl OPTIMAL 100 - 129 mg/dl NEAR OR ABOVE OPTIMAL 130 - 159 mg/dl BORDERLINE HIGH 160 - 189 mg/dl HIGH >190 mg/dl VERY HIGH Performed By: #### T SH, BMP, LIVER, LIPID #### [facility] [address] [address] [address] Job Cerda Triglyceride [Mass/Vol] 81 mg/dL Normal <=150 [facility] Comment on above: Performed By: #### T SH, BMP, LIVER, LIPID #### [facility] [address] [address] [address] Job Cerda VLDL CALC 16.2 mg/dL Normal [facility] Comment on above: Performed By: #### T SH, BMP, LIVER, LIPID #### [facility] [address] [address] [address] Job Cerda LIVER PROFILEon 07-31-2022 Albumin [Mass/Vol] 3.8 g/dL Normal 3.4-5.0 [facility] Comment on above: Performed By: #### T SH, BMP, LIVER, LIPID #### [facility] [address] [address] [address] Job Cerda Albumin/Globulin [Mass ratio] 1.1 {ratio} Normal [facility] Comment on above: Performed By: #### T SH, BMP, LIVER, LIPID #### [facility] [address] [address] [address] Job Cerda ALP [Catalytic activity/Vol] 79 U/L Normal 46-116 [facility] Comment on above: Performed By: #### T SH, BMP, LIVER, LIPID #### [facility] [address] [address] [address] Job Cerda ALT [Catalytic activity/Vol] 33 U/L Normal 14-59 [facility] Comment on above: Performed By: #### T SH, BMP, LIVER, LIPID #### [facility] [address] [address] [address] Job Cerda AST [Catalytic activity/Vol] 13 U/L Critically low 15-37 [facility] Comment on above: Performed By: #### T SH, BMP, LIVER, LIPID #### [facility] [address] [address] [address] Job Cerda BILI, CONJUGATED 0.2 mg/dL Normal 0.0-0.2 [place] Comment on above: Performed By: #### T SH, BMP, LIVER, LIPID #### [facility] [address] [address] [address] Job Cerda Bilirubin [Mass/Vol] 0.7 mg/dL Normal 0.2-1.0 [facility] Comment on above: Performed By: #### T SH, BMP, LIVER, LIPID #### [facility] [address] [address] [address] Job Cerda Globulin (S) [Mass/Vol] 3.4 g/dL Normal [facility] Comment on above: Performed By: #### T SH, BMP, LIVER, LIPID #### [facility] [address] [address] [address] Job Cerda Protein [Mass/Vol] 7.2 g/dL Normal 6.4-8.2 [facility] Comment on above: Performed By: #### T SH, BMP, LIVER, LIPID #### [facility] [address] [address] [address] Job Cerda MG MAMM SCREEN 3D TASHIA CADon 07-31-2022 MG MAMM SCREEN 3D TASHIA CAD Patient: CHRISTELLE MOHAN Exam Date: 07/31/2022 : 1955 Gender:F Ordering : DR SHAUN SANCHEZ . Admission #: [id number] Family : Order #: [id number] CLICK HERE TO VIEW EXAM RADIOLOGY REPORT [...] colon cancer at age 65. LOCATION: [facility] BREAST COMPOSITION: Heterogeneously dense,which may obscure [...] Javed M.D. on 07/31/2022 at 11:56 Normal [facility] PROF CHEM 8 (BAS METB)on Anion gap [Moles/Vol] 10.1 mmol/L Normal [facility] Comment on above: Performed By: #### T SH, BMP, LIVER, LIPID #### [facility] [address], [place] [address] Dr. Job Cerda Calcium [Mass/Vol] 9.2 mg/dL Normal 8.5-10.1 [facility] Comment on above: Performed By: #### T SH, BMP, LIVER, LIPID #### [facility] [address], [place] [address] Dr. Job Cerda Chloride [Moles/Vol] 103 mmol/L Normal 98-107 [facility] Comment on above: Performed By: #### T SH, BMP, LIVER, LIPID #### [facility] [address] [address] [address] Job Cerda CO2 [Moles/Vol] 30.6 mmol/L Normal 21.0-32.0 [place] Comment on above: Performed By: #### T SH, BMP, LIVER, LIPID #### [facility] [address] [place] [address] Dr. Job Cerda Creatinine [Mass/Vol] 1.00 mg/dL Normal 0.55-1.02 [facility] Comment on above: Performed By: #### T SH, BMP, LIVER, LIPID #### [facility] [address] [place] [address] Dr. Job Cerda EGFR-AF [place]ER >60 Normal >=60 [place] Comment on above: Performed By: #### T SH, BMP, LIVER, LIPID #### [facility] [address] [place] [address] Dr. Job Cerda EGFR-NON AF [place] 55 mL/min/1.73m2 Critically low >=60 [facility] Comment on above: Performed By: #### T SH, BMP, LIVER, LIPID #### [facility] [address] [place] [address] Dr. Job Cerda Glucose [Mass/Vol] 115 mg/dL Critically high 74-106 [facility] Comment on above: Performed By: #### T SH, BMP, LIVER, LIPID #### [facility] [address] [place] [address] Dr. Job Cerda Potassium [Moles/Vol] 3.7 mmol/L Normal 3.5-5.1 [facility] Comment on above: Performed By: #### T SH, BMP, LIVER, LIPID #### [facility] [address] [place] [address] Dr. Job Cerda Sodium [Moles/Vol] 140 mmol/L Normal 136-145 [facility] Comment on above: Performed By: #### T SH, BMP, LIVER, LIPID #### [facility] [address] [address] [address] Job Cerda Urea nitrogen [Mass/Vol] 20.0 mg/dL Critically high 7.0-18.0 [facility] Comment on above: Performed By: #### T SH, BMP, LIVER, LIPID #### [facility] [address] [address] [address] Job Cerda Urea nitrogen/Creatinine [Mass ratio] 20.0 mg/mg Normal [facility] Comment on above: Performed By: #### T SH, BMP, LIVER, LIPID #### [facility] [address] [address] [address] Job Cerda TSHon 07-31-2022 TSH 3.723 uIU/mL Normal 0.358-3.740 [facility] Comment on above: Performed By: #### T SH, BMP, LIVER, LIPID #### [facility] [address] [address] [address] Job Cerda ECHOCARDIO M/2D COMPLETEon 0 02-22-2022 ECHOCARDIO M/2D COMPLETE Patient: CHRISTELLE MOHAN Exam Date: 02/22/2022 : 1955 Gender:F Ordering : DR SHAUN SANCHEZ . Admission #: [id number] Family : Order #: [id number] CLICK HERE TO VIEW EXAM ECHOCARDIOGRAM REPORT [...] Area(A4C): 14.30 cm2 Left Atrium Systolic Volume(A2C): 59817 mm3 Left Atrium Systolic Volume(A4C): 40347 mm3 Mitral Valve MV E to A [...] Fiore M.D. on 02/22/2022 at 18:37 Normal [facility] Vital Signs Date Time Vital Sign Value Performing Clinician Facility 10-22-2024 08:08-0500 Body height 160 cm Shaun Sanchez MD Work Phone: [facility] 10-22-2024 08:08-0500 Body mass index (BMI) [Ratio] 32.95 kg/m2 Shaun Sanchez MD Work Phone: [facility] 10-22-2024 08:08-0500 Body temperature 97.5 [degF] Shaun Sanchez MD Work Phone: [facility] 10-22-2024 08:08-0500 Body weight 84.37 kg Shaun Sanchez MD Work Phone: [facility] 10-22-2024 08:08-0500 Diastolic blood pressure 72 mm[Hg] Shaun Sanchez MD Work Phone: [facility] 10-22-2024 08:08-0500 Heart rate 73 /min Shaun Sanchez MD Work Phone: [facility] 10-22-2024 08:08-0500 Respiratory rate 22 /min Shaun Sanchez MD Work Phone: [facility] 10-22-2024 08:08-0500 SaO2% (BldA) [Mass fraction] 93 % Shaun Sanchez MD Work Phone: [facility] 10-22-2024 08:08-0500 Systolic blood pressure 138 mm[Hg] Shaun Sanchez MD Work Phone: [facility] 07-07-2024 08:16-0400 Body height 160 cm Shaun Sanchez MD Work Phone: [facility] 07-07-2024 08:16-0400 Body mass index (BMI) [Ratio] 32.06 kg/m2 Shaun Sanchez MD Work Phone: [facility] 07-07-2024 08:16-0400 Body temperature 97.11 [degF] Shaun Sanchez MD Work Phone: [facility] 07-07-2024 08:16-0400 Body weight 82.1 kg Shaun Sanchez MD Work Phone: [facility] 07-07-2024 08:16-0400 Diastolic blood pressure 70 mm[Hg] Shaun Sanchez MD Work Phone: [facility] 07-07-2024 08:16-0400 Heart rate 59 /min Shaun Sanchez MD Work Phone: [facility] 07-07-2024 08:16-0400 Respiratory rate 22 /min Shaun Sanchez MD Work Phone: [facility] 07-07-2024 08:16-0400 SaO2% (BldA) [Mass fraction] 97 % Shaun Sanchez MD Work Phone: [facility] 07-07-2024 08:16-0400 Systolic blood pressure 120 mm[Hg] Shaun Sanchez MD Work Phone: [facility] 07-11-2023 14:16-0400 Blood Pressure Location Job [facility] 07-11-2023 14:16-0400 Diastolic blood pressure 86 mm[Hg] Job [facility] [place] 07-11-2023 14:16-0400 Heart rate 72 /min Job NEV[facility] [place] 07-11-2023 14:16-0400 Respiratory rate 16 /min Job NEV[facility] [place] 07-11-2023 14:16-0400 Systolic blood pressure 126 mm[Hg] Job NEVAREZ [facility] [place] Encounters Encounter Date Encounter Type Care Provider Facility Start: 10-22-2024 End: 10-22-2024 Bamboo flowsheet Shaun Sanchez MD Work Phone: [facility] Start: 10-22-2024 End: 10-22-2024 Bamboo flowsheet Shaun Sanchez MD Work Phone: [facility] Start: 10-22-2024 End: 10-22-2024 Patient encounter procedure Shaun Sanchez MD Work Phone: [facility] Work Phone: Start: 10-22-2024 End: 10-22-2024 Postop follow up visit related to original px Shaun Sanchez MD Work Phone: [facility] Comment on above: Medicare annual well ness visit, subsequent (Primary Dx) Start: 10-22-2024 End: 10-22-2024 ambulatory SHAUN SANCHEZ Not Available Start: 07-11-2024 End: 07-11-2024 Clinisync Result Encounter Shaun Sanchez MD Work Phone: [facility] Unsolicited Start: 07-11-2024 End: 07-11-2024 Clinisync Result Encounter Shaun Sanchez MD Work Phone: [facility] Unsolicited Start: 07-07-2024 End: 07-07-2024 Bamboo flowsheet Shaun Sanchez MD Work Phone: [facility] Start: 07-07-2024 End: 07-07-2024 Bamboo flowsheet Shaun Sanchez MD Work Phone: [facility] Start: 07-07-2024 End: 07-07-2024 ambulatory SHAUN SANCHEZ Not Available Start: 07-07-2024 End: 07-07-2024 Office outpatient visit 15 minutes Shaun Sanchez MD Work Phone: [facility] Comment on above: Essential hypertensi on, benign (CMS/HCC) (Primary Dx); Ventricular ectopy; Seasonal allergic rhinitis due to pollen; Dyslipidemia (CMS/HCC); Prediabetes; Encounter for long-term current use of medication; Obesity (BMI 30-39.9) Start: 01-02-2024 End: 01-02-2024 ambulatory SHAUN SANCHEZ Not Available Start: 08-14-2023 End: 08-15-2023 ambulatory Job NEVAREZ Facility: [facility] Start: 08-14-2023 End: 08-14-2023 Patient encounter procedure Job R NILL [facility] Start: 08-08-2023 ambulatory Job NILL Facility:[facility] Start: 08-01-2023 End: 08-02-2023 ambulatory Job R NILL Facility:[id number] Start: 07-11-2023 End: 2023 ambulatory Job R NILL Facility: [facility] Start: 07-11-2023 End: 07-11-2023 Patient encounter procedure Job R NILL [facility] Start: 06-20-2023 ambulatory Job R SALOMEL Facility : [facility] Start: 07-31-2022 End: 08-01-[address] SHAUN SANCHEZ Facility:[facility] Start: 02-22-2022 End: 02-23-[address] SHAUN SANCHEZ Facility:[facility] Start: 02-03-2022 End: 02-04-[address] SHAUN SANCHEZ Facility:[facility] Procedures Date Procedure Procedure Detail Performing Clinician Start: 08-28-2024 Mammography Shaun granda MD Work Phone: Start: 07-11-2024 ALL CBC WITH AUTO DIFF Shaun Sanchez MD Work Phone: Start: 08-14-2023 Mammography Shaun granda MD Work Phone: Start: 08-01-2023 Colonoscopy Shaun granda MD Work Phone: Start: 08-01-2023 Colonoscopy Job NI LL Start: 06-26-2018 Colonoscopy Job NI LL Abdominal hysterectomy Sunil tima NEVAREZ Colonoscopy Job NILL Tonsillectomy Job NEVAREZ Plan of Treatment Date Care Activity Detail Author Start: 08-01-2033 Screening for malign ant neoplasm of colon [facility] Start: 08-28-2025 Screening for malign ant neoplasm of breast Mammogram [facility] Start: 04-27-2025 End: 04-27-2025 Patient encounter procedure 04/27/2025 8:00 AM EDT Office Visit [facility] [address] [place] [address] Shaun Sanchez MD [address] [place] [address] [facility] Start: 10-22-2024 End: 10-22-2024 Patient encounter procedure [facility] Comment on above: Arrived Start: 08-14-2024 Screening for malign ant neoplasm of breast Mammogram [facility] Start: 07-13-2024 Influenza vaccination Influenza Vacc ine (#1) [facility] Start: 07-07-2024 End: 07-07-2025 Basic metabolic 1998 panel - Serum or Plasma Basic metabolic panel Lab Routine Essential hypertension, benign (CMS/HCC) Expected: 07/07/2024 (Approximate), Expires: 07/07/2025 [facility] Comment on above: Expected: 07/07/2024 (Approximate), Expires: 07/07/2025 Start: 07-07-2024 End: 07-07-2025 CBC W Auto Differential panel - Blood CBC and differential Lab Routine Encounter for long-term current use of medication Expected: 07/07/2024 (Approximate), Expires: 07/07/2025 [facility] Comment on above: Expected: 07/07/2024 (Approximate), Expires: 07/07/2025 Start: 07-07-2024 End: 07-07-2025 Hemoglobin A1c/Hemoglobin.total in Blood Hemoglobin A1c Lab Routine Prediabetes Expected: 07/07/2024 (Approximate), Expires: 07/07/2025 [facility] Work Phone: Comment on above: Expected: 07/07/2024 (Approximate), Expires: 07/07/2025 Start: 07-07-2024 End: 07-07-2025 Hepatic function 2000 panel - Serum or Plasma Hepatic function panel Lab Routine Encounter for long-term current use of medication Expected: 07/07/2024 (Approximate), Expires: 07/07/2025 [facility] Comment on above: Expected: 07/07/2024 (Approximate), Expires: 07/07/2025 Start: 07-07-2024 End: 07-07-2025 Lipid 1996 panel - Serum or Plasma Lipid panel Lab Routine Dyslipidemia (CMS/HCC) Expected: 07/07/2024 (Approximate), Expires: 07/07/2025 [facility] Comment on above: Expected: 07/07/2024 (Approximate), Expires: 07/07/2025 Start: 07-07-2024 End: 07-07-2025 Thyrotropin [Units/volume] in Serum or Plasma TSH Lab Routine Obesity (BMI 30-39.9) Expected: 07/07/2024 (Approximate), Expires: 07/07/2025 [facility] Comment on above: Expected: 07/07/2024 (Approximate), Expires: 07/07/2025 Start: 06-12-2024 Screening for malign ant neoplasm of colon [facility] Start: 2020 Pneumococcal Vaccine : 65+ Years (1 of 1 - PCV) Pneumococcal Vaccine: 65+ Years (1 of 1 - PCV) [facility] Start: 1955 Medicare Annual Wellness (AWV) Medicare Annual Wellness (AWV) [facility] Start: 1955 Screening for malign ant neoplasm of colon [facility] Immunizations Immunization Date Immunization Notes Care Provider [facility] 08-14-2024 influenza virus vaccine, unspecified formulation Shaun Sanchez MD Work Phone: [facility] 10-20-2022 SARS-CoV-2 (COVID-19 ) mRNAMUL.[id number] Job NEVAREZ [facility] [place] 09-06-2021 SARS-CoV-2 (COVID-19 ) mRNA [id number] vax Job [facility] [place] 02-08-2021 SARS-CoV-2 (COVID-19 ) mRNA BNT-162f0 michael NEVAREZ [facility] [place] 01-17-2021 SARS-CoV-2 (COVID-19 ) mRNA BNT-162b2 michael NEVAREZ [facility] [place] Payers Date Payer Category Payer Unknown [id number] 2020 Medicare [employer]ICARE [id number] 2020-Present [address] [place] [address] [id number] 2020 Medicare (Managed Care) [employer] MEDICARE [id number] 1959 Medicare [id number] 1955 Unknown [id number] [id number] 1955 Unknown [id number]. 2.593 1955 Unknown [id number] [id number]. 2.593 1955 Unknown [id number] [id number]. 2.727 1955 Unknown [id number] [id number]. 2.727 1955 Unknown [id number] [id number]. 2.727 1955 Unknown [id number] [id number]. 2.727 1955 Unknown [id number] [id number]. 2.727 1955 Unknown [id number] [id number]. 2.1259 1955 Unknown [id number]. 2.1259 1955 Unknown [id number]. 2.1259 Social History Date Type Detail Facility Start: 07-11-2023 End: 01-02-2024 Tobacco smoking status Never smoked tobacco (finding) [facility] Tobacco smoking status Never [facility] Start: 01-02-2024 End: 06-30-2024 Sex Assigned At Female [facility] Start: 01-02-2024 Tobacco use and exposure Smoke less tobacco non-user [facility] Start: 01-02-2024 End: 06-30-2024 History of Social function [facility] Do you belong to any clubs or organizations such as samaritan groups, unions, fraternal or athletic groups, or school groups? No [facility] Are you now , , , , never or living with a partner? [facility] How often to you hav e a drink containing alcohol? 2-4 times a month [facility] How many standard dr inks containing alcohol do you have on a typical day? 1 or 2 [facility] How often do you hav e 6 or more drinks on 1 occasion? Never [facility] Do you feel stress - tense, restless, nervous, or anxious, or unable to sleep at night because your mind is troubled all the time - these days [OSQ] Not at all [facility] (I/We) worried wheth er (my/our) food would run out before (I/we) got money to buy more. Never true [facility] Start: 1955 Sex assigned at Not on file [facility] Functional Status Date Assessment Result Facility 07-11-2023 Functional Status N/A [facility] History of Present illness Narrative 10-22-2024 Shaun Sanchez MD - 10/22/2024 9:12 AM Tr Sanchez MD - 10/22/2024 8:00 AM EST Note Date & Type Note Facility 10-22-2024 History of Presen t illness Narrative Associated Problem(s): Medicare annual wellness visit, subsequent Reviewed labs. Discussed proper diet and regular aerobic exercise. Need aerobic exercise 5-6 days a week for 30 minutes at a time. Smaller portions and limit total calories. Colonoscopy every 10 years. Tetanus every 10 years. Advised not to smoke. Images from the original note were not included. Subjective Patient ID: Christelle Mohan is a 69 y.o. female who presents for Medicare Annual Wellness Visit Subsequent (wellness). Presents for medicare annual wellness visit. Patient feels well today. Weight up 8 pounds in the past year. Tries to stay active around house and walk but harder in winter. Tries to watch diet and eat healthy. Increased fruits and vegetables. Smaller portions and limits snacking. Tries to limit total daily calories. Reviewed labs. Review of Systems Respiratory: Negative for cough, shortness of breath and wheezing. Cardiovascular: Negative for chest pain and palpitations. Gastrointestinal: Negative for abdominal pain, diarrhea, nausea and vomiting. Genitourinary: Negative for dysuria. Objective Physical Exam Constitutional: General: She is not in acute distress. Appearance: Normal appearance. HENT: Head: Normocephalic. Right Ear: Tympanic membrane normal. Left Ear: Tympanic membrane normal. Eyes: Extraocular Movements: Extraocular movements intact. Pupils: Pupils are equal, round, and reactive to light. Cardiovascular: Rate and Rhythm: Normal rate and regular rhythm. Heart sounds: No murmur heard. No friction rub. No gallop. Pulmonary: Effort: Pulmonary effort is normal. Breath sounds: Normal breath sounds. No wheezing, rhonchi or rales. Abdominal: General: Bowel sounds are normal. There is no distension. Palpations: Abdomen is soft. Tenderness: There is no abdominal tenderness. There is no guarding or rebound. Musculoskeletal: General: No swelling or tenderness. Cervical back: Neck supple. Right lower leg: No edema. Left lower leg: No edema. Skin: Findings: No erythema or rash. Neurological: General: No focal deficit present. Mental Status: She is alert and oriented to person, place, and time. Cranial Nerves: No cranial nerve deficit. Motor: No weakness. Gait: Gait normal. Assessment/Plan Problem List Items Addressed This Visit Medicare annual wellness visit, subsequent - Primary Reviewed labs. Discussed proper diet and regular aerobic exercise. Need aerobic exercise 5-6 days a week for 30 minutes at a time. Smaller portions and limit total calories. Colonoscopy every 10 years. Tetanus every 10 years. Advised not to smoke. documented in this encounter [facility] History of Present illness Narrative 07-07-2024 hSaun Sanchez MD - 07/07/2024 8:44 AM Marcelle Sanchez MD - 07/07/2024 8:44 AM Marcelle Sanchez MD - 07/07/2024 8:44 AM Marcelle Sanchez MD - 07/07/2024 8:00 AM EDT Note Date & Type Note Facility 07-07-2024 History of Presen t illness Narrative Associated Problem(s): Ventricular ectopy No palpitations and continue metoprolol. Associated Problem(s): Essential hypertension, benign (CMS/HCC) BP controlled and monitor PRN. Associated Problem(s): Allergic rhinitis due to pollen Symptoms controlled with medication and continue. Images from the original note were not included. Subjective Patient ID: Christelle Mohan is a 68 y.o. female who presents for Follow-up (6m). Follow up HTN, palpitations, and allergies. Patient doing well today. Checking BP PRN and typically controlled. BP normal today. Taking medication daily and tolerating without side effects. Allergies controlled with medication. No congestion or rhinorrhea. No CASTRO or sinus pressure. Ears not plugged or popping. Ectopy controlled with metoprolol. Denies palpitations or heart racing. Not lightheaded or dizzy. Review of Systems Respiratory: Negative for cough, shortness of breath and wheezing. Cardiovascular: Negative for chest pain and palpitations. Gastrointestinal: Negative for abdominal pain, diarrhea, nausea and vomiting. Genitourinary: Negative for dysuria. Objective Physical Exam Constitutional: General: She is not in acute distress. Appearance: Normal appearance. HENT: Head: Normocephalic. Right Ear: Tympanic membrane normal. Left Ear: Tympanic membrane normal. Eyes: Extraocular Movements: Extraocular movements intact. Pupils: Pupils are equal, round, and reactive to light. Cardiovascular: Rate and Rhythm: Normal rate and regular rhythm. Heart sounds: No murmur heard. No friction rub. No gallop. Pulmonary: Effort: Pulmonary effort is normal. Breath sounds: Normal breath sounds. No wheezing, rhonchi or rales. Abdominal: General: Bowel sounds are normal. There is no distension. Palpations: Abdomen is soft. Tenderness: There is no abdominal tenderness. There is no guarding or rebound. Musculoskeletal: Cervical back: Neck supple. Right lower leg: No edema. Left lower leg: No edema. Neurological: Mental Status: She is alert. Assessment/Plan Problem List Items Addressed This Visit Essential hypertension, benign (CMS/HCC) - Primary BP controlled and monitor PRN. Relevant Orders Basic metabolic panel Allergic rhinitis due to pollen Symptoms controlled with medication and continue. Dyslipidemia (CMS/HCC) Relevant Orders Lipid panel Prediabetes Relevant Orders Hemoglobin A1c Ventricular ectopy No palpitations and continue metoprolol. Encounter for long-term current use of medication Relevant Orders CBC and differential Hepatic function panel Obesity (BMI 30-39.9) Relevant Orders TSH documented in this encounter [facility] Clinical Note 07-11-2023 Note Date & Type [...] Brother. Immunizations Vaccine Date Status SARS-CoV-2 (COVID-19) mRNAMUL.[id number] 10/20/2022 Recorded SARS-CoV-2 (COVID-19) mRNA BNT-162b2 vax 09/06/2021 Recorded SARS-CoV-2 (COVID-19) mRNA BNT-162b2 vax 02/08/2021 Recorded SARS-CoV-2 (COVID-19) mRNA BNT-162b2 vax 01/17/2021 Recorded [facility] Comment on above: Result Comment: Elec tronically Signed By: GERI STANTON, Job Camacho\Date and Time Signed: 07/11/23 14:51 EDT Evaluation + Plan note Note Date & Type Note Facility Evaluation + Plan note No data available for this section [facility] [place] Evaluation note Note Date & Type Note Facility Evaluation note Diagnosis Essential hypertension, benign (CMS/HCC)- Primary Essential hypertension, benign Ventricular ectopy Other premature beats Seasonal allergic rhinitis due to pollen Essential hypertension, benign (CMS/HCC)- Primary Essential hypertension, benign Ventricular ectopy Other premature beats Seasonal allergic rhinitis due to pollen Dyslipidemia (CMS/HCC) Other and unspecified hyperlipidemia Prediabetes Other abnormal glucose Encounter for long-term current use of medication Obesity (BMI 30-39.9) Medicare annual wellness visit, subsequent- Primary documented in this encounter [facility] Evaluation note Note Date & Type Note Facility Evaluation note Diagnosis Essential hypertension, benign (CMS/HCC)- Primary Essential hypertension, benign Ventricular ectopy Other premature beats Seasonal allergic rhinitis due to pollen Dyslipidemia (CMS/HCC) Other and unspecified hyperlipidemia Prediabetes Other abnormal glucose Encounter for long-term current use of medication Obesity (BMI 30-39.9) documented in this encounter [facility] Hospital Discharge instructions Note Date & Type Note Facility Hospital Discharge instructions No data available for this section [facility] [place] Progress note Note Date & Type Note Facility Progress note No data available for this section [facility] [place] Summary Purpose Family History No Family History Records Found No data available for this section No Family History Records FoundNo Family History Records Found Advance Directives No Advanced Directives Records FoundNo Advanced Directives Records FoundNo Advanced Directives Records Found Additional Source Comments INFORMATION SOURCE (unrecogn ized section and content) DATE CREATED AUTHOR 11/22/2022 [facility] DATE CREATED AUTHOR AUTHOR'S ORGANIZ ATION 08/15/2023 [facility] DATE CREATED AUTHOR AUTHOR'S ORGANIZ ATION 10/25/[address] [facility] EPIC Patient Care team informatio n (unrecognized section and content) Electrical Appliance Repairer Relationship Specialty Start Date End Date Shaun Sanchez MD [address] [place] [phone] PCP - General Family Medicine 12/25/23 Shaun Sanchez MD [address] [place] [address] PCP - Medical [place] 08/12/2011/11 Electrical Appliance Repairer Relationship Specialty Start Date End Date Shaun Sanchez MD [address] [place] [address] PCP - General Family Medicine 12/25/23 Shaun Sanchez MD [address] [place] [address] PCP - [facility] [place] 08/12/2011/11 Electrical Appliance Repairer Relationship Specialty Start Date End Date Shaun Sanchez MD [address] [place] [address] PCP - General Family Medicine 12/25/23 Shaun Sanchez MD [address] [place] [address] PCP - [facility] [place] 08/12/2011/11 Electrical Appliance Repairer Relationship Specialty Start Date End Date Shaun Sanchez MD [address] [place] [address] PCP - General Family Medicine 12/25/23 Shaun Sanchez MD [address] [place] [address] PCP - Medical [facility] 08/12/2011/11 Electrical Appliance Repairer Relationship Specialty Start Date End Date Shaun Sanchez MD [address] [place] [address] PCP - General Family Medicine 12/25/23 Shaun Sanchez MD [address] [place] [address] PCP - Medical [facility] 08/12/2011/11 Reason for Visit (unrecogniz ed section and content) Reason Comments Medicare Annual Wellness Visit Subsequen t wellness Reason Comments Follow-up 6m FOR RECORDS PERTAINING TO PATIENTS WHO ARE [...] BE BASED ON THE PRIMARY CLINICAL RECORDS. [facility]. provides no warranty or guarantee of the accuracy or completeness of information in this document.
[2025-03-02] MEDS: VARICELLA-ZOSTER GE VAC,2 OF 2 0.5 ML VIAL IM (13:15)
== END 2025-03-02 12:45 | disposition home or self-care (01) ==
LOC: VACCLI 12:47
PROVIDERS: PCP Family Medicine; Visit Provider Family Medicine
DX: Z23 Encounter for immunization (principal)
CPT/HCPCS: 90750

== ENCOUNTER 2025-08-14 07:27 | Outpatient (OUT) | payer MEDICARE, SELFPAY ==
--- OUTSIDE RECORDS SUMMARY | 2025-08-14 07:34 | XMS_ITS | Encounter Summary ---
Author Organization [facility] Address [address] [place] [address] Care Team Providers Care Seat Builder Name Role Phone Shaun Licona MD Primary Care Provider [phone] Shaun Licona MD Unavailable Encounter Details Date Type Department Care Team (Late st Contact Info) Description 07/11/2024 Orders Only [facility] [address] [place] [address] Shaun Licona MD [address] [place] [phone] Social History Tobacco Use Types Packs/Day Years Used Date Smoking Tobacco: Never Smokeless Tobacco: Never [id number] Health Literacy Answer Date Recor ded How often do you need to hav e someone help you when you read instructions, pamphlets, or other written material from your doctor or pharmacy? Never 06/30/2024 Social Connection and Isolat ion Panel [NHANES] Answer Date Recorded In a typical week, how many times do you talk on the phone with family, friends, or neighbors? Twice a week 06/30/2024 How often do you get togethe r with friends or relatives? Twice a week 06/30/2024 How often do you attend chur ch or samaritan services? More than 4 times per year 06/30/2024 Do you belong to any clubs o r organizations such as methodist groups, unions, fraternal or athletic groups, or school groups? No 06/30/2024 How often do you attend meet ings of the clubs or organizations you belong to? Never 06/30/2024 Are you , , di vorced, , never , or living with a partner? 06/30/2024 AUDIT-C Answer Date Recorded Q1: How often do you have a drink containing alc ohol? 2-4 times a month 06/30/2024 Q2: How many drinks containi ng alcohol do you have on a typical day when you are drinking? 1 or 2 06/30/2024 Q3: How often do you have si x or more drinks on one occasion? Never 06/30/2024 Overall Financial Resource Strain (CARDIA) Answe r Date Recorded How hard is it for you to pa y for the very basics like food, housing, medical care, and heating? Not hard at all 06/30/2024 PHQ-2 Answer Date Recorded Patient Health Questionnaire-2 Score 0 01/02/2024 [facility] - Occupational Stress Questionnaire Answer Date Recorded Do you feel stress - tense, restless, nervous, or anxious, or unable to sleep at night because your mind is troubled all the time - these days? Not at all 06/30/2024 Exercise Vital Sign Answer Date Recorde d On average, how many days pe r week do you engage in moderate to strenuous exercise (like a brisk walk)? 5 days 06/30/2024 On average, how many minutes do you engage in exercise at this level? 30 min 06/30/2024 Hunger Vital Sign Answer Date Recorded Within the past 12 months, y ou worried that your food would run out before you got the money to buy more. Never true 06/30/20 24 Ran Out of Food in the Last Year Not on file 06/30/2024 PRAPARE - Transportation Answer Date Re corded In the past 12 months, has l ack of transportation kept you from medical appointments or from getting medications? No 06/12 In the past 12 months, has l ack of transportation kept you from meetings, work, or from getting things needed for daily living? No 06/30/2024 Housing Stability Vital Sign Answer Tay e Recorded In the last 12 months, was t here a time when you were not able to pay the mortgage or rent on time? No 06/30/2024 Number of Times Moved in the Last Year Not on fi le 06/30/2024 At any time in the past 12 m [facility], were you homeless or living in a senior living (including now)? No 06/30/2024 Comments Unknown Sex and Gender Information Value Date Recorded Sex Assigned at Not on file Legal Sex Female 9:33 AM EDT Gender Identity Not on file Sexual Orientation Not on file documented as of this encounter Plan of Treatment Not on file documented as of this encounter Visit Diagnoses Not on filedocumented in this encounter Care Teams Seat Builder Relationship Specialty Start Date End Date Shaun Licona MD PCP - General Family Medicine 12/25/23 Shaun Licona MD [address] [place] [address] PCP - Medical [place] 08/12/2011/11 documented as of this encounter
--- OUTSIDE RECORDS SUMMARY | 2025-08-14 07:34 | XMS_ITS | Encounter Summary ---
Author Organization [facility] Address [address] [place] [address] Care Team Providers Care Timber Sizer Operator Name Role Phone Shaun Licona MD Primary Care Provider [phone] Shaun Licnoa MD Unavailable Encounter Details Date Type Department Care Team (Late st Contact Info) Description 03/05/2024 Clinisync Result Encounter [facility] External Department Unsolicited Shaun Licona MD [address] [place] [address] Social History Tobacco Use Types Packs/Day Years Used Date Smoking Tobacco: Never Smokeless Tobacco: Never PHQ-2 Answer Date Recorded Patient Health Questionnaire-2 Score 0 01/02/2024 Comments Unknown Sex and Gender Information Value Date Recorded Sex Assigned at Not on file Legal Sex Female 9:33 AM EDT Gender Identity Not on file Sexual Orientation Not on file documented as of this encounter Plan of Treatment Not on file documented as of this encounter Procedures Procedure Name Priority Date/Time Associated Diagnosis Comments MM TOMOSYNTHESIS DIAGNOSTIC RT 03/05/2024 8:33 AM EDT documented in this encounter Results * MM TOMOSYNTHESIS DIAGNOSTIC RT (03/05/2024 8:33 AM EDT) Anatomical Region Laterality Modality Other 03/05/2024 8:33 AM EDT Narrative 03/05/2024 8:34 AM EDT The [address] [place] [address] Mammography Report Signed Patient: CHRISTELLE MOHAN MR#: [id number] : 1955 Acct:[id number] Age/Sex: 68 / F ADM Date: 03/05/24 Loc: MAMMO Attending Dr: Shaun Licona M.D. Ordering Physician: Shaun Licona M.D. Results: Date of Service: 03/05/24 Follow Up: Procedure(s): MM tomosynthesis diagnostic RT Accession Number(s): [id number] cc: Shaun Licona M.D. Patient Name: CHRISTELLE MOHAN MR#: [id number] : 1955 Exam Date: 03/05/2024 Ordering Doctor: DR Shaun Licona . RADIOLOGY REPORT PROCEDURE: MM TOMOSYNTHESIS DIAGNOSTIC RT, 03/05/2024, 06:55 US BREAST RT LIMITED, 03/05/2024, 08:06 COMPARISON: US BREAST RT LIMITED, 08/22/2023. MM DIAGNOSTIC MAMMO UNILAT RT, 08/22/2023. MM TOMOSYNTHESIS SCREENING BI, 08/03/2023. MG MAMM SCREEN 3D TASHIA CAD, 07/31/2022. INDICATIONS: Abnormal Right Mammogram R92.8 Calculator Name NCI Breast Cancer Risk Assessment Tool 5 Year Breast Cancer Risk 2.30% Lifetime Breast Cancer Risk 7.40% Personal Breast Cancer No Personal Ovarian Cancer No Treatments None Family Cancers Mother with colon cancer at age 60; Father with colon cancer at age 65. LOCATION: The [facility] BREAST COMPOSITION: The breasts are heterogeneously dense,which may obscure small masses. FINDINGS: DIAGNOSTIC CATEGORY 3--PROBABLY BENIGN FINDING. THE FOLLOWING FINDING(S) HAS A HIGH PROBABILITY OF A BENIGN ETIOLOGY: RIGHT BREAST: Standard views and spot magnification views demonstrate a partially circumscribed lesion within the upper inner quadrant approximately 12 o'clock, 1.2 cm in size with stable adjacent 8 mm lesion. Ultrasound evaluation demonstrates an anechoic thin walled 1.2 x 1.2 x 0.6 cm cyst favoring benign etiology. Adjacent to this, 6.1 cm from the nipple is a 7 x 6 x 3 mm small nodule with associated calcification corresponding to the mammographic findings; unchanged compared to prior ultrasound study and stable could paired to tomographic mammography through at least 2021. As a precautionary measure and to help document stability over 2 year period additional follow-up mammography and right breast ultrasound in 6 months is recommended. RECOMMENDATIONS: SHORT TERM FOLLOW-UP DIAGNOSTIC MAMMOGRAM RIGHT BREAST IN 6 MONTHS. SHORT TERM FOLLOW-UP ULTRASOUND RIGHT BREAST IN 6 MONTHS. PLEASE NOTE: A NORMAL MAMMOGRAM DOES NOT EXCLUDE THE POSSIBILITY OF BREAST CANCER. A CLINICALLY SUSPICIOUS PALPABLE LUMP SHOULD BE BIOPSIED. Dictated by: Osman Javed M.D. on 03/05/2024 at 08:22 Approved by: Osman Javed M.D. on 03/05/2024 at 08:33 Dictated By: Osman Javed M.D. Signed By: 03/05/24833 DD/ 2 TD/TT: Bakeshop Cleaner: Procedure Note Radiology, Radiologist, MD - 03/05/2024 [place] [address] Mammography Report Signed Patient: CHRISTELLE MOHAN KMR#: [id number] : 5Acct:[id number] Age/Sex: 68 / FADM Date: 03/05/24 Loc: MAMMO Attending Dr: Shaun Licona M.D. Ordering Physician: Shaun Licona M.D.Results: Date of Service: 03/05/24Follow Up: Procedure(s): MM tomosynthesis diagnostic RT Accession Number(s): [id number] cc: Shaun Licona M.D. Patient Name: CHRISTELLE MOHAN MR#: [id number] : 1955 Exam Date: 03/05/2024 Ordering Doctor: DR Shaun Carpenter RADIOLOGY REPORT PROCEDURE: MM TOMOSYNTHESIS DIAGNOSTIC RT, 03/05/2024, 06:55 US BREAST RT LIMITED, 03/05/2024, 08:06 COMPARISON: US BREAST RT LIMITED, 08/22/2023. MM DIAGNOSTIC MAMMOUNILAT RT, 08/22/2023. MM TOMOSYNTHESIS SCREENING BI, 08/03/2023. MG MAMM [id number] TASHIA CAD, 07/31/2022. INDICATIONS: Abnormal Right Mammogram R92.8 Calculator Name NCI Breast Cancer Risk Assessment Tool 5 Year Breast Cancer Risk 2.30% Lifetime Breast Cancer Risk 7.40% Personal Breast Cancer No Personal Ovarian Cancer No Treatments None Family Cancers Mother with colon cancer at age 60; Father with colon cancer at age 65. LOCATION: The [facility] BREAST COMPOSITION: The breasts are heterogeneously dense,which may obscure small masses. FINDINGS: DIAGNOSTIC CATEGORY 3--PROBABLY BENIGN FINDING. THE FOLLOWING FINDING(S)HAS A HIGH PROBABILITY OF A BENIGN ETIOLOGY: RIGHT BREAST: Standard views and spot magnification views demonstrate a partially circumscribed lesion within the upper inner quadrantapproximately 12 o'clock, 1.2 cm in size with stable adjacent 8 mm lesion. Ultrasound evaluation demonstrates an anechoic thin walled 1.2 x 1.2 x 0.6cm cyst favoring benign etiology. Adjacent to this, 6.1 cm from the nippleis a 7 x 6 x 3 mm small nodule with associated calcification corresponding tothe mammographic findings; unchanged compared to prior ultrasound study andstable could paired to tomographic mammography through at least 2021. As a precautionary measure and to help document stability over 2 year period additional follow-up mammography and right breast ultrasound in 6 monthsis recommended. RECOMMENDATIONS: SHORT TERM FOLLOW-UP DIAGNOSTIC MAMMOGRAM RIGHT BREAST IN 6 MONTHS. SHORT TERM FOLLOW-UP ULTRASOUND RIGHT BREAST IN 6 MONTHS. PLEASE NOTE: A NORMAL MAMMOGRAM DOES NOT EXCLUDE THE POSSIBILITY OFBREAST CANCER. A CLINICALLY SUSPICIOUS PALPABLE LUMP SHOULD BE BIOPSIED. Dictated by: Osman Javed M.D. on 03/05/2024 at 08:22 Approved by: Osman Javed M.D. on 03/05/2024 at 08:33 Dictated By: Osman Javed M.D. Signed By:03/05/24 0834 DD/ 0833 TD/TT: Bakeshop Cleaner: Shaun Licona MD [facility] Final Result documented in this encounter Visit Diagnoses Not on filedocumented in this encounter Care Teams Timber Sizer Operator Relationship Specialty Start Date End Date Shaun Licona MD PCP - General Family Medicine 12/25/23 Shaun Licona MD [address] [place] [phone] PCP - Medical [place] CHEIKH 08/12/2011/11 documented as of this encounter
--- OUTSIDE RECORDS SUMMARY | 2025-08-14 07:34 | XMS_ITS | Encounter Summary ---
Author Organization [facility] Address [address] [place] [place] [address] Care Team Providers Care Coke Crane Operator Name Role Phone Shaun Licona MD Primary Care Provider [phone] Shaun Licona MD Unavailable Encounter Details Date Type Department Care Team (Late st Contact Info) Description 08/28/2024 Clinisync Result Encounter [facility] External Department Unsolicited Shaun Licona MD [address] [facility] [address] Social History Tobacco Use Types Packs/Day Years [...] often do you attend chur ch or adventist services? More than 4 times per year 06/30/2024 Do you belong to any clubs o r organizations such as tenriism groups, unions, fraternal or athletic groups, or [...] Recorded Patient Health Questionnaire-2 Score 0 01/02/2024 [facility] - Occupational Stress [...] any time in the past 12 m [facility], were you homeless or living in a assisted (including now)? No 06/30/2024 Comments Unknown Sex and Gender Information Value Date Recorded Sex Assigned at Not on file Legal Sex Female 9:33 AM EDT Gender Identity Not on file Sexual Orientation Not on file documented as of this encounter Plan of Treatment Not on file documented as of this encounter Procedures Procedure Name Priority Date/Time Associated Diagnosis Comments BI US BREAST LIMITED RIGHT 08/28/2024 11:36 AM EDT documented in this encounter Results * Right breast US limited (08/28/2024 11:36 AM EDT) Anatomical Region Laterality Modality Breast Right Ultrasound 08/28/2024 11:3 6 AM EDT Narrative 08/28/2024 11:37 [place] [address] Ultrasound Report Signed Patient: CHRISTELLE MOHAN MR#: [id number] : 1955 Acct:[id number] Age/Sex: 69 / F ADM Date: 08/28/24 Loc: MAMMO Attending Dr: Shaun Licona M.D. Ordering Physician: Shaun Licona M.D. Date of Service: 08/28/24 Procedure(s): US breast RT limited Accession Number(s): [id number] cc: Shaun Licona M.D. Patient Name: CHRISTELLE MOHAN MR#: [id number] : 1955 Exam Date: 08/28/2024 Ordering Doctor: DR Shanu Licona . RADIOLOGY REPORT PROCEDURE: MM TOMOSYNTHESIS DIAGNOSTIC BI, 08/28/2024, 10:54 US BREAST RT LIMITED, 08/28/2024, 11:15 COMPARISON: MM TOMOSYNTHESIS DIAGNOSTIC RT, 03/05/2024. MM DIAGNOSTIC MAMMO UNILAT RT, 08/22/2023. INDICATIONS: Abnormal Mammogram Calculator Name NCI Breast Cancer Risk Assessment Tool 5 Year Breast Cancer Risk 2.30% Lifetime Breast Cancer Risk 7.10% Personal Breast Cancer No Personal Ovarian Cancer No Treatments None Family Cancers Mother with colon cancer at age 60; Father with colon cancer at age 65. LOCATION: The [facility] BREAST COMPOSITION: The breasts are heterogeneously dense,which may obscure small masses. FINDINGS: DIAGNOSTIC CATEGORY 2--BENIGN FINDING. NO CHANGE FROM COMPARISON. Scattered benign-appearing nodules are present. Scattered benign-appearing calcifications are present. Scattered benign-appearing lymph nodes are present. RIGHT BREAST: Stable cluster 5 microcalcifications, unchanged. Stable 1.5 x 0.8 mm circumscribed nodule upper inner quadrant, mid breast. Ultrasound of this region demonstrates a simple cyst measuring 1.2 x 0.7 x 1.0 cm with increased acoustic through transmission. Also identified is a small intramammary lymph node measuring 5.9 x 3.5 x 4.6 mm 12 o'clock right breast.. LEFT BREAST: No significant suspicious finding. RECOMMENDATIONS: ROUTINE MAMMOGRAM AND CLINICAL EVALUATION IN 12 MONTHS. PLEASE NOTE: A NORMAL MAMMOGRAM DOES NOT EXCLUDE THE POSSIBILITY OF BREAST CANCER. A CLINICALLY SUSPICIOUS PALPABLE LUMP SHOULD BE BIOPSIED. Dictated by: Luke Lindo MD on 08/28/2024 at 11:32 Approved by: Luke Lindo MD on 08/28/2024 at 11:36 Dictated By: Luke Lindo M.D. Signed By: 08/28/24 1137 DD/ 1136 TD/TT: Hand Brim Ironer: Procedure Note Radiology, Radiologist, - 08/28/2024 [place] [address] Ultrasound Report Signed Patient: CHRISTELLE MOHAN KMR#: [id number] : 5Acct:[id number] Age/Sex: 69 / FADM Date: 08/28/24 Loc: MAMMO Attending Dr: Shaun Licona M.D. Ordering Physician: Shaun Licona M.D. Date of Service: 08/28/24 Procedure(s): US breast RT limited Accession Number(s): [id number] cc: Shaun Licona M.D. Patient Name: CHRISTELLE MOHAN MR#: [id number] : 1955 Exam Date: 08/28/2024 Ordering Doctor: DR Shaun Licona . RADIOLOGY REPORT PROCEDURE: MM TOMOSYNTHESIS DIAGNOSTIC BI, 08/28/2024, 10:54 US BREAST RT LIMITED, 08/28/2024, 11:15 COMPARISON: MM TOMOSYNTHESIS DIAGNOSTIC RT, 03/05/2024. MM DIAGNOSTIC MAMMO UNILAT RT, 08/22/2023. INDICATIONS: Abnormal Mammogram Calculator Name NCI Breast Cancer Risk Assessment Tool 5 Year Breast Cancer Risk 2.30% Lifetime Breast Cancer Risk 7.10% Personal Breast Cancer No Personal Ovarian Cancer No Treatments None Family Cancers Mother with colon cancer at age 60; Father with colon cancer at age 65. LOCATION: [facility] BREAST COMPOSITION: The breasts are heterogeneously dense,which may obscure small masses. FINDINGS: DIAGNOSTIC CATEGORY 2--BENIGN FINDING. NO CHANGE FROM COMPARISON. Scattered benign-appearing nodules are present. Scatteredbenign-appearing calcifications are present. Scattered benign-appearing lymph nodes are present. RIGHT BREAST: Stable cluster 5 microcalcifications, unchanged. Stable1.5 x 0.8 mm circumscribed nodule upper inner quadrant, mid breast. Ultrasoundof this region demonstrates a simple cyst measuring 1.2 x 0.7 x 1.0 cm with increased acoustic through transmission. Also identified is a small intramammary lymph node measuring 5.9 x 3.5 x 4.6 mm 12 o'clock rightbreast.. LEFT BREAST: No significant suspicious finding. RECOMMENDATIONS: ROUTINE MAMMOGRAM AND CLINICAL EVALUATION IN 12 MONTHS. PLEASE NOTE: A NORMAL MAMMOGRAM DOES NOT EXCLUDE THE POSSIBILITY OFBREAST CANCER. A CLINICALLY SUSPICIOUS PALPABLE LUMP SHOULD BE BIOPSIED. Dictated by: Luke Lindo MD on 08/28/2024 at 11:32 Approved by: Luke Lindo MD on 08/28/2024 at 11:36 Dictated By: Luke Lindo M.D. Signed By:08/28/24 1137 DD/ 1136 TD/TT: Hand Brim Ironer: Shaun Licona MD [facility] Final Result documented in this encounter Visit Diagnoses Not on filedocumented in this encounter Care Teams Coke Crane Operator Relationship Specialty Start Date End Date Shaun Licona MD PCP - General Family Medicine 12/25/23 Shaun Licona MD [address] [place] [phone] PCP - Medical [place] CHEIKH 08/12/2011/11 documented as of this encounter
--- OUTSIDE RECORDS SUMMARY | 2025-08-14 07:34 | XMS_ITS | Encounter Summary ---
Author Organization [facility] Address [address] [place] [address] Care Team Providers Care Skin Diver Name Role Phone Shaun Licona MD Primary Care Provider [phone] Shaun Licona MD Unavailable Encounter Details Date Type Department Care Team (Late st Contact Info) Description 03/05/2024 Clinisync Result Encounter [facility] External Department Unsolicited Shaun Licona MD [address] [facility] [place] [address] Social History Tobacco Use Types Packs/Day Years [...] Diagnosis Comments BI US BREAST LIMITED RIGHT 03/05/2024 8:33 AM EDT documented in this encounter Results * Right breast US limited (03/05/2024 8:33 AM EDT) Anatomical Region Laterality Modality Breast Right Ultrasound 03/05/2024 8:33 AM EDT Narrative 03/05/2024 8:35 AM EDT The [address] [address] Ultrasound Report Signed Patient: CHRISTELLE KITCHEN MR#: [id number] : 1955 Acct:[id number] Age/Sex: 68 / F ADM Date: 03/05/24 Loc: MAMMO Attending Dr: Shaun Licona M.D. Ordering Physician: Shaun Licona M.D. Date of Service: 03/05/24 Procedure(s): US breast RT limited Accession Number(s): [id number] cc: Shaun Licona M.D. Patient Name: CHRISTELLE KITCHEN MR#: [id number] : 1955 Exam Date: 03/05/2024 Ordering Doctor: [...] colon cancer at age 65. LOCATION: The [facility] BREAST COMPOSITION: The breasts are heterogeneously [...] Dictated By: Osman Javed M.D. Signed By: 03/05/24 0835 DD/ TD/TT: Meter Repair Shop Supervisor: Procedure Note Radiology, Radiologist, MD - 03/05/2024 [place] [address] Ultrasound Report Signed Patient: CHRISTELLE KITCHEN KMR#: [id number] : 1955ct:[id number] Age/Sex: 68 / FADM Date: 03/05/24 Loc: MAMMO Attending Dr: Shaun Licona M.D. Ordering Physician: Shaun Licona M.D. Date of Service: 03/05/24 Procedure(s): US breast RT limited Accession Number(s): [id number] cc: Shaun Licona M.D. Patient Name: CHRISTELLE KITCHEN MR#: [id number] : 1955 Exam Date: 03/05/2024 Ordering Doctor: DR Shaun Licona . RADIOLOGY REPORT PROCEDURE: MM TOMOSYNTHESIS DIAGNOSTIC RT, 03/05/2024, 06:55 US BREAST RT LIMITED, 03/05/2024, 08:06 COMPARISON: US BREAST RT LIMITED, 08/22/2023. MM DIAGNOSTIC MAMMOUNILAT RT, 08/22/2023. MM TOMOSYNTHESIS SCREENING BI, 08/03/2023. MG MAMM [id number] TASHIA CAD, 07/31/2022. INDICATIONS: Abnormal Right Mammogram R92.8 Calculator Name NCI Breast Cancer Risk Assessment Tool 5 Year Breast Cancer Risk 2.30% Lifetime Breast Cancer Risk 7.40% Personal Breast Cancer No Personal Ovarian Cancer No Treatments None Family Cancers Mother with colon cancer at age 60; Father with colon cancer at age 65. LOCATION: The [facility] BREAST COMPOSITION: The breasts are heterogeneously [...] Dictated By: Osman Javed M.D. Signed By:03/05/24 0835 DD/ 0833 TD/TT: Meter Repair Shop Supervisor: us Shaun Liocna MD IMG US PROCEDURES Final Result documented in this encounter Visit Diagnoses Not on filedocumented in this encounter Care Teams Skin Diver Relationship Specialty Start Date End Date Shaun Licona MD PCP - General Family Medicine 12/25/23 Shaun Licona MD [address] [place] [address] PCP - Medical [place] CHEIKH 08/12/2011/11 documented as of this encounter
--- OUTSIDE RECORDS SUMMARY | 2025-08-14 07:34 | XMS_ITS | Encounter Summary ---
Author Organization [facility] Address [address] [place] [address] Care Team Providers Care Superintendent Automotive Name Role Phone Shaun Licona MD Primary Care Provider [phone] Shaun Licona MD Unavailable Encounter Details Date Type Department Care Team (Late st Contact Info) Description 08/28/2024 Clinisync Result Encounter [facility] External Department Unsolicited Shaun Licona MD [address] [place] [address] Social History Tobacco Use Types Packs/Day Years [...] often do you attend chur ch or shinto services? More than 4 times per year [...] Recorded Patient Health Questionnaire-2 Score 0 01/02/2024 [facility] of Occupat ional Health - Occupational [...] any time in the past 12 m [facility], were you homeless or living in a group home (including now)? No 06/30/2024 Comments Unknown Sex and Gender Information Value Date Recorded Sex Assigned at Not on file Legal Sex Female 9:33 AM EDT Gender Identity Not on file Sexual Orientation Not on file documented as of this encounter Plan of Treatment Not on file documented as of this encounter Procedures Procedure Name Priority Date/Time Associated Diagnosis Comments MM TOMOSYNTHESIS DIAGNOSTIC BI 08/28/2024 11:36 AM EDT documented in this encounter Results * MM TOMOSYNTHESIS DIAGNOSTIC BI (08/28/2024 11:36 AM EDT) Anatomical Region Laterality Modality Other 08/28/2024 11:3 6 AM EDT Narrative 08/28/2024 11:37 [place] [address] Mammography Report Signed Patient: CHRISTELLE MOHAN MR#: [id number] : 1955 Acct:[id number] Age/Sex: 69 / F ADM Date: 08/28/24 Loc: MAMMO Attending Dr: Shaun Licona M.D. Ordering Physician: Shaun Licona M.D. Results: Date of Service: 08/28/24 Follow Up: Procedure(s): MM tomosynthesis diagnostic BI Accession Number(s): [id number] cc: Shaun Licona M.D. Patient Name: CHRISTELLE MOHAN MR#: [id number] : 1955 Exam Date: 08/28/2024 Ordering Doctor: [...] at age 65. LOCATION: [facility] BREAST COMPOSITION: The breasts are heterogeneously [...] Signed By: 08/28/24 1137 DD/ 1136 TD/TT: Injection Molder: Procedure Note Radiology, Radiologist, - 08/28/2024 [place] [address] Mammography Report Signed Patient: CHRISTELLE MOHAN KMR#: [id number] : 5Acct:[id number] Age/Sex: 69 / FADM Date: 08/28/24 Loc: MAMMO Attending Dr: Shaun Licona M.D. Ordering Physician: Shaun Licona M.D.Results: Date of Service: 08/28/24Follow Up: Procedure(s): MM tomosynthesis diagnostic BI Accession Number(s): [id number] cc: Shaun Licona M.D. Patient Name: CHRISTELLE MOHAN MR#: [id number] : 1955 Exam Date: 08/28/2024 Ordering Doctor: [...] at age 65. LOCATION: [facility] BREAST COMPOSITION: The breasts are heterogeneously [...] M.D. Signed By:08/28/24 1137 DD/ 1136 TD/TT: Injection Molder: Shaun Licona MD [facility] Final Result documented in this encounter Visit Diagnoses Not on filedocumented in this encounter Care Teams Superintendent Automotive Relationship Specialty Start Date End Date Shaun Licona MD PCP - General Family Medicine 12/25/23 Shaun Licona MD [address] [place] [address] PCP - Medical [facility] 08/12/2011/11 documented as of this encounter
--- OUTSIDE RECORDS SUMMARY | 2025-08-14 07:35 | XMS_ITS | Encounter Summary ---
Author Organization [facility] Address [address] [place] [address] Care Team Providers Care Line Builder Name Role Phone Shaun Licona MD Primary Care Provider [phone] Shaun Licona MD Unavailable Encounter Details Date Type Department Care Team (Late st Contact Info) Description 09/22/2024 Abstract [facility] [address] [place] [address] Shaun Licona MD [address] [place] [address] Social History Tobacco Use Types Packs/Day Years [...] often do you attend chur ch or buddhist services? More than 4 times per year 06/30/2024 Do you belong to any clubs o r organizations such as alevism groups, unions, fraternal or athletic groups, or [...] any time in the past 12 m [facility], were you homeless or living in a custodial (including now)? No 06/30/2024 Comments Unknown Sex and Gender Information Value Date Recorded Sex Assigned at Not on file Legal Sex Female 9:33 AM EDT Gender Identity Not on file Sexual Orientation Not on file documented as of this encounter Plan of Treatment Not on file documented as of this encounter Visit Diagnoses Not on filedocumented in this encounter Care Teams Line Builder Relationship Specialty Start Date End Date Shaun Licona MD PCP - General Family Medicine 12/25/23 Shaun Licona MD [address] [place] [address] PCP - Medical [place] 08/12/2011/11 documented as of this encounter
--- OUTSIDE RECORDS SUMMARY | 2025-08-14 07:35 | XMS_ITS | Encounter Summary ---
Author Organization [facility] Address [address] [place] [address] Care Team Providers Care Felt Hat Pouncing Operator Hand Name Role Phone Shaun Licona MD Primary Care Provider Shaun Licona MD Unavailable Encounter Details Date Type Department Care Team (Late st Contact Info) Description 08/28/2024 Orders Only [facility] [address] [facility] [place] [address] Ranjana Dover NP Social History Tobacco Use Types Packs/Day Years [...] often do you attend chur ch or holiness services? More than 4 times per year 06/30/2024 Do you belong to any clubs o r organizations such as anglican groups, unions, fraternal or athletic groups, or [...] Patient Health Questionnaire-2 Score 0 01/02/2024 [facility] of Occupat ional Health - Occupational Stress [...] any time in the past 12 m [facility], were you homeless or living in a longterm (including now)? No 06/30/2024 Comments Unknown Sex and Gender Information Value Date Recorded Sex Assigned at Not on file Legal Sex Female 9:33 AM EDT Gender Identity Not on file Sexual Orientation Not on file documented as of this encounter Plan of Treatment Not on file documented as of this encounter Procedures Procedure Name Priority Date/Time Associated Diagnosis Comments MAMMOGRAM DIAGNOSTIC WITH ULTRASOUND, BILATERAL Routine 08/28/2024 11:55 AM EDT BI MAMMOGRAM DIAGNOSTIC TOMOSYNTHESIS BILATERAL Routine 08/28/2024 11:52 AM EDT documented in this encounter Results * MAMMOGRAM DIAGNOSTIC WITH ULTRASOUND, BILATERAL (08/28/2024 11:55 AM EDT) Anatomical Region Laterality Modality Radiographic Shilpi ging Shaun Licona MD IMG XR PROCEDURES Final Result * Bilateral diagnostic mammogram with tomosynthesis (08/28/2024 11:52 AM EDT) Anatomical Region Laterality Modality Breast Bilateral Mammography Ranjana Dover CARDIOLOGY TECHNOLOGIST IMG BI PROCEDURES Final Result documented in this encounter Visit Diagnoses Not on filedocumented in this encounter Care Teams Felt Hat Pouncing Operator Hand Relationship Specialty Start Date End Date Shaun Licona MD PCP - General Family Medicine 12/25/23 Shaun Licona MD [address] [place] [address] PCP - Medical [place] MA 08/12/2011/11 documented as of this encounter
--- OUTSIDE RECORDS SUMMARY | 2025-08-14 07:35 | XMS_ITS | Clinical Summary ---
Author Organization [facility] Address [address] [place] [address] Care Team Providers Care Slate Roofer Helper Name Role Phone Unavailable Primary Care Provider Unavailabl e Social History Tobacco Use Types Packs/Day Years Used Date Smoking Tobacco: Never Assessed [place] Safety & Environment Answer Date Rec orded Fear of Current or Ex-Partner Not on file Emotionally Abused Not on file 01/03/2024 Physically Abused Not on file 01/03/2024 Sexually Abused Not on file 01/03/2024 Physically or Sexually Abused Not on file Comments Unknown Sex and Gender Information Value Date Recorded Sex Assigned at Not on file Legal Sex Female 12:44 AM EDT Gender Identity Not on file Sexual Orientation Not on file Plan of Treatment Not on file
--- OUTSIDE RECORDS SUMMARY | 2025-08-14 07:36 | XMS_ITS | Clinical Summary ---
Author Organization [employer] [facility] Address [id number] [place] [address] Care Team Providers Care Cigarette Machine Filler Name Role Phone Shaun Licona MD Primary Care Provider [phone] Allergies No known active allergies Medications lisinopril-hydro CHLOROthiazide (PRINZIDE,ZESTOR ETIC) 20-25 mg per tablet Take 1 tablet by mouth daily. Active atorvastatin (LIPITOR) 20 mg tablet Take 20 mg by mouth daily. Active Active Problems Problem Noted Date Diagnosed Date Vertigo 04/18/2018 Family History Medical History Relation Name Comments Colon cancer Brother Colon cancer Mother Relation Name Status Comments Brother Alive Father Mother Social History Tobacco Use Types Packs/Day Years Used Date Smoking Tobacco: Never Smokeless Tobacco: Never Alcohol Use Standard Drinks/Week Comments Yes 0 (1 standard drink = 0.6 oz pur e alcohol) Childcare Answer Date Recorded Childcare Unknown 04/23/2019 Employment Answer Date Recorded Employment Unknown 04/23/2019 Purpose - Life Answer Date Recorded Purpose and direction in life Unknown Comments Unknown Sex and Gender Information Value Date Recorded Sex Assigned at Not on file Legal Sex Female 11:24 AM EDT Gender Identity Not on file Sexual Orientation Not on file Last Filed Vital Signs Vital Sign Reading Time Taken Comments Blood Pressure 120/84 07/03/2018 2:41 PM EDT Pulse - - Temperature - - Respiratory Rate - - Oxygen Saturation - - Inhaled Oxygen Concentration - - Weight 81.6 kg (180 lb) 07/03/2018 2:41 PM EDT Height 160 cm (5' 3 ) 07/03/2018 2:41 PM EDT Body Mass Index 31.89 07/03/2018 2:41 PM EDT Plan of Treatment Health Maintenance Due Date Last Done Comments Depression Screening 1967 Tobacco Screening 1967 Adult BMI Screening 1973 DTaP,Tdap and Td Vaccines (1 - Tdap) 1974 Zoster (Shingles) Vaccine (1 of 2) 2005 Fall Risk Screening 2020 Colonoscopy 06/26/2023 06/26/2018 Influenza Vaccine 07/13/2025 Medical Devices Not on file Procedures Procedure Name Priority Date/Time Associated Diagnosis Comments COLONOSCOPY Routine 06/26/2018 12:00 PM EDT from Last 3 Months or Most Recently Relevant to Health Maintenance Insurance [employer] Member Subscriber Plan / Payer (Ef fective 2017-Present) Name:Christelle Mohan Relation to Subscriber:Self Name:Christelle Mohan Payer ID:Not on file Type:Not on file Address: [place] [id number] Care Teams Cigarette Machine Filler Relationship Specialty Start Date End Date Shaun Licona MD PCP - General Family Medicine 04/03/18
--- OUTSIDE RECORDS SUMMARY | 2025-08-14 07:36 | XMS_ITS | Clinical Summary ---
Author Organization [facility] Address [address] [place] [address] Care Team Providers Care Applications Manager Name Role Phone Shaun Licona MD Primary Care Provider [phone] Shaun Licona MD Unavailable Allergies No known active allergies Medications cetirizine (ZyrTEC) 10 MG tablet Take 1 tablet by mouth in the morning. Active lisinopril-hydr oCHLOROthiazide 20-25 MG tabletIndicatio ns:Essential hypertension, benign TAKE 1 TABLET BY MOUTH DAILY 90 tablet 3 07/21/2024 Active atorvastatin (Lipitor) 20 MG tabletIndicatio ns:Dyslipidemia TAKE 1 TABLET BY MOUTH AT BEDTIME 90 tablet 3 07/21/2024 Active metoprolol tartrate (Lopressor) 25 MG tabletIndicatio ns:Essential hypertension, benign TAKE 1 TABLET BY MOUTH TWICE DAILY 180 tablet 3 08/20/2024 Active Active Problems Problem Noted Date Diagnosed Date Vertigo 04/27/2025 Assessment & Plan (04/27/2025 8:48 AM EDT): Severe symptoms and fluid behind TM with ears plugged. Treat with antibiotics and steroids for possible middle ear infection. Use OTC meclizine PRN. If no improvement will need to start vestibular rehab. Medicare annual wellness visit, subsequent 10/22 Assessment & Plan (10/22/2024 9:12 AM EST): Reviewed labs. Discussed proper diet and regular aerobic exercise. Need aerobic exercise 5-6 days a week for 30 minutes at a time. Smaller portions and limit total calories. Colonoscopy every 10 years. Tetanus every 10 years. Advised not to smoke. Abnormal mammogram of right breast 08/20/2024 Encounter for long-term current use of medicatio n 07/07/2024 Class 1 obesity due to exces s calories with serious comorbidity and body mass index (BMI) of 33.0 to 33.9 in adult 07/07/2024 Essential hypertension, benign 01/02/2024 Assessment & Plan (04/27/2025 8:46 AM EDT): BP controlled and monitor PRN. Assessment & Plan (07/07/2024 8:44 AM EDT): BP controlled and monitor PRN. Assessment & Plan (01/02/2024 1:40 PM EST): BP controlled and monitor PRN. Allergic rhinitis due to pollen 01/02/2024 Assessment & Plan (07/07/2024 8:44 AM EDT): Symptoms controlled with medication and continue. Assessment & Plan (01/02/2024 1:40 PM EST): Symptoms controlled with medication and continue. Dyslipidemia 01/02/2024 Prediabetes 01/02/2024 Ventricular ectopy 01/02/2024 Assessment & Plan (04/27/2025 8:46 AM EDT): No palpitations and continue metoprolol. Assessment & Plan (07/07/2024 8:44 AM EDT): No palpitations and continue metoprolol. Assessment & Plan (01/02/2024 1:40 PM EST): No palpitations and continue metoprolol. Encounters Date Type Department Care Team Description 05/27/2025 Telephone [facility] [address] [place] [address] Carolin Looney, PT PT Vertigo fu; fu; Final from Last 3 Months Family History Medical History Relation Name Comments Hypertension Father Colon cancer Mother Hypertension Mother Relation Name Status Comments Father Mother Social History Tobacco Use Types Packs/Day Years Used Date Smoking Tobacco: Never Smokeless Tobacco: Never Tobacco Cessation:Counseling Given: Not Answered B1300 Health Literacy Answer Date Recor ded [...] 06/30/2024 How often do you attend chur or rastafari services? More than 4 times per year 06/30/2024 Do you belong to any clubs o r organizations such as anabaptist groups, unions, fraternal or athletic groups, or [...] Date Recorded Patient Health Questionnaire-2 Score 0 10/22/2024 [facility] of Occupat ional Health - Occupational Stress [...] time in the past 12 m [facility], were you homeless or living in a long-term (including now)? No 06/30/2024 Comments Unknown Sex and Gender Information Value Date Recorded Sex Assigned at Not on file Legal Sex Female 9:33 AM EDT Gender Identity Not on file Sexual Orientation Not on file Last Filed Vital Signs Vital Sign Reading Time Taken Comments Blood Pressure 124/82 04/27/2025 8:17 AM EDT Pulse 96 04/27/2025 8:17 AM EDT Temperature 36.4 C (97.5 F) 04/27/2025 8:17 AM EDT Respiratory Rate 20 04/27/2025 8:17 AM EDT Oxygen Saturation 97% 04/27/2025 8:17 AM EDT Inhaled Oxygen Concentration - - Weight 84.8 kg (187 lb) 04/27/2025 8:17 AM EDT Height 160 cm (5' 3 ) 04/27/2025 8:17 AM EDT Body Mass Index 33.13 04/27/2025 8:17 AM EDT Plan of Treatment Health Maintenance Due Date Last Done Comments CT Colonography 1955 FIT-DNA 1955 FOBT 1955 Sigmoidoscopy 1955 Pneumococcal Vaccine: 65+ Ye ars (1 of 1 - PCV) 2005 FIT 06/12/2024 06/12/2023 Influenza Vaccine (#1) 2025 08/14/2024 Mammogram 08/28/2025 08/28/2024, 08/12, 08/14/2023 Medicare Annual Wellness (AWV) 10/22/2025 10/22/2024 Colonoscopy 08/01/2033 08/01/2023 Colorectal Cancer Screening 08/01/2033 Procedures Procedure Name Priority Date/Time Associated Diagnosis Comments BI MAMMOGRAM DIAGNOSTIC TOMOSYNTHESIS BILATERAL Routine 08/28/2024 11:52 AM EDT FECAL IMMUNOCHEMICAL Routine 06/12/2023 from Last 3 Months or Most Recently Relevant to Health Maintenance Results * Bilateral diagnostic mammogram with tomosynthesis (08/28/2024 11:52 AM EDT) Anatomical Region Laterality Modality Breast Bilateral Mammography Ranjana Dover SEMI DRIVER IMG BI PROCEDURES Final Result * Fecal immunochemical (06/12/2023) Stool Rectal contents / Unknown 06/12/2023 Narrative Christen Wilson MA - 06/12/2023 12:05 PM EDT Per [facility] home kit Shaun Licona MD LAB BODY FLUIDS AND STOOLS ORDER MIRIAM Final Result from Last 3 Months or Most Recently Relevant to Health Maintenance Insurance [employer] MEDICARE Care Teams Applications Manager Relationship Specialty Start Date End Date Shaun Licona MD PCP - General Family Medicine 12/25/23 Shaun Licona MD [address] [place] [address] PCP - Medical [facility] 08/12/2011/11
--- NOTE | 2025-08-14 07:38 | XR_ITS ---
The [place] [id number] Patient Name: MELLO KITCHEN MRN: [id number] date: 1955 Sex: F Assigned Patient Location: [facility] Current Patient Location: [facility] Accession/Order Number: [id number] Exam Date: 08/14/2025 07:45 Report Date: 08/14/2025 14:04 At the request of: PRISCILLA SANCHEZ MD Procedure: XR foot LT min 3V LEFT FOOT - 3 views CLINICAL HISTORY: Left Foot Pain COMPARISON: None FINDINGS: No focal soft tissue abnormalities. No acute bony process is seen. Plantar spurring. Minimal degenerative changes involving the talonavicular joint without bony erosions. XR/XR foot LT min 3V IMPRESSION: MINIMAL DEGENERATIVE CHANGE WITHOUT ACUTE BONY PROCESS. PLANTAR SPURRING. Impression dictated by: Torres Eddy Jr., D.O. 08/14/2025 2:04 PM Dictation Location: [place] [address] Electronically authenticated by: [id number] Y Date: 08/14/2025 14:04
== END 2025-08-14 07:28 | disposition home or self-care (01) ==
LOC: RAD 07:32
PROVIDERS: PCP Family Medicine; Visit Provider Family Medicine
DX: M79.672 Pain in left foot (principal); M77.32 Calcaneal spur, left foot
CPT/HCPCS: 73630

== ENCOUNTER 2025-09-03 09:25 | Outpatient (OUT) | payer MEDICARE, SELFPAY ==
--- OUTSIDE RECORDS SUMMARY | 2025-09-03 09:28 | XMS_ITS | Clinical Summary ---
Author Organization [facility] Address [address] [place] [address] Care Team Providers Care Parenting Skills Instructor Name Role Phone Unavailable Primary Care Provider Unavailabl e Social History Tobacco UseTypesPacks/DayYears UsedDateSmoking Tobacco: Never AssessedUT Safety & EnvironmentAnswerDate RecordedFear of Current or Ex-PartnerNot on file 01/03/2024Emotionally AbusedNot on file01/03/2024hysically AbusedNot on file 01/03/2024Sexually AbusedNot on file01/03/2024hysically or Sexually AbusedNot on file01/03/2024CommentsUnknownSex and Gender InformationValueDate RecordedSex Assigned at BirthNot on fileLegal IycHuaqpm56/30/2022 12:44 AM EDT Gender IdentityNot on fileSexual OrientationNot on file Plan of Treatment Not on file
--- OUTSIDE RECORDS SUMMARY | 2025-09-03 09:29 | XMS_ITS | CCD ---
Author Organization [facility] CliniSywy Care Team Providers Care Squeezer Operator Name Role Phone DANIEL, DR SHAUN Mayen [...] Attending Unavailable NILL, Job Pulliam Attending Unavailable NADEREHeraclio, SHAUN Referring Unavailable NILL, Job Pulliam Attending Unavailable NILL, Job Pulliam Attending Unavailable NILL, Job Pulliam Attending Unavailable Shaun Sanchez MD Primary Care Provider [phone] Shaun Sanchez MD Unavailable SHAUN SANCHEZ Attending Unavailable KAPIL LOONEY Attending Unavailable NADEREHeraclio, SHAUN Referring Unavailable DANIEL, SHAUN Attending Unavailable DANIEL, SHAUN Attending Unavailable Shaun Sanchez MD Attending Provider Shaun Sanchez MD Primary Care Provider Allergies Allergy ClassificationReported Allergen(s)Allergy TypeDate of OnsetReaction(s) Facility (1 source)No Known Medication Allergies; Translations: [No Known Medication Allergies]Propensity to adverse reactions (disorder)[facility] Repository Medications Current Medications MedicationDrug Class(es)DatesSig (Normalized)Sig (Original)atorvastatin 20 mg oral tablet (18 sources)HMG-CoA Reductase InhibitorStart: 07-23-2025 End: 25-54-1441rxiw 1 tablet by mouth once dailyAtorvastatin 20 mg tablet Active 20 MG PO Daily July 23, 2025 1:09pm Complies with drug therapyStart: 21-88-8380gjiv 1 tablet by mouth at bedtimeatorvastatin (Lipitor) 20 MG tablet Indications: Dyslipidemia TAKE 1 TABLET BY MOUTH AT BEDTIME 90 tablet 3 07/21/2024 ActiveStart: 35-82-4522uhxo 1 tablet by mouth at bedtimeatorvastatin (Lipitor) 20 MG tablet Take 1 tablet by mouth at bedtime 10/25/2023 ActiveStart: 36-66-1204zyyg 1 tablet by mouth once dailyLipitor 20 mg Tab 20 mg = 1 tab(s), Oral, Daily, Refills(s) 0 Start Date: 07/06/23 Status: OrderedhydroCHLOROthiazide 25 mg / lisinopril 20 mg oral tablet (18 sources)Thiazide Diuretic, Angiotensin Converting Enzyme InhibitorStart: 07-23-2025 End: 94-93-4855fhab 1 tablet by mouth once dailyLisinopril-Hydrochlorothiazide 20-25 mg tablet Active 1 TAB PO Daily July 23, 2025 1:09pmComplies with drug therapyStart: 21-42-2092wjfo 1 tablet by mouth once dailylisinopril- hydroCHLOROthiazide 20-25 MG tablet Indications: Essential hypertension, benign TAKE 1 TABLET BY MOUTH DAILY 90 tablet 3 07/21/2024 ActiveStart: 62-48-4653oeaj 1 tablet by mouth in the morninglisinopril-hydroCHLOROthiazide 20-25 MG tablet Take 1 tablet by mouth in the morning. 10/25/2023 ActiveStart: 19-15-4850sxdd 1 tablet by mouth once dailyZestoretic 25 mg-20 mg Tab 1 tab(s), Oral, Daily, Refill(s) 0 Start Date: 07/06/23 Status: OrderedlevoFLOXacin 750 mg oral tablet (2 sources)Quinolone AntimicrobialStart: 04-27-2025 End: 71-58-5400pfac 1 tablet by mouth once dailylevoFLOXacin (Levaquin) 750 MG tablet Indications: Labyrinthitis, unspecified laterality Take 1 tablet (750 mg) by mouth Daily for 7 days 7 tablet 04/27/2025 05/04/2025 Activemetoprolol tartrate 25 mg oral tablet (17 sources)beta-Adrenergic BlockerStart: 14-52-8436sxzz 1 tablet by mouth twice dailyMetoprolol Tartrate 25 mg tablet Active 25 MG PO Twice daily July 30, 2025 12:00am Complies with drug therapyStart: 74-35-8254zvho 1 tablet by mouth twice dailymetoprolol tartrate (Lopressor) 25 MG tablet Indications: Essential hypertension, benign TAKE 1 TABLET BY MOUTH TWICE DAILY 180 tablet 3 08/20/2024 ActiveStart: 89-49-5958twkl 1 tablet by mouth in the morning metoprolol tartrate (Lopressor) 25 MG tablet Take 1 tablet by mouth in the morning and 1 tablet before bedtime. 11/24/2023 ActiveStart: 30-04-0365tgxg 1 tablet by mouth twice dailyMetoprolol tartrate 25 mg Tab 25 mg = 1 tab(s), Oral, BID, Refills(s) 0 Start Date: 07/06/23 Status:OrderedpredniSONE 50 mg oral tablet (2 sources)Start: 04-27-2025 End: 92-11-1540nlsh 1 tablet by mouth once dailypredniSONE (Deltasone) 50 MG tablet Indications: Labyrinthitis, unspecified laterality Take 1 tablet (50 mg) by mouth Daily for 6 days 6 tablet 04/27/2025 05/03/2025 Active Completed/Discontinued Medications MedicationDrug Class(es)DatesSig (Normalized)Sig (Original)cetirizine hydrochloride 10 mg oral tablet (15 sources)Histamine-1 Receptor AntagonistStart: 07-30-2025 End: 61-63-9022yjmk 1 tablet by mouth once daily as neededCetirizine (All Day Allergy (Cetirizine)) 10 mg tablet Discontinued 10 MG PO Daily as needed 2024 12:00am August 13, 2025 1:52pmtake 1 tablet by mouth in the morningcetirizine (ZyrTEC) 10 MG tablet Take 1 tablet by mouth in the morning. Active Problems Active Problems Problem ClassificationProblemDateDocumented DateEpisodic/ChronicCardiac dysrhythmias (20 sources)Ventricular premature depolarization; Translations: [Ventricular arrhythmia]Onset: 112425-11-3409HjmxvtuNbgfsqmmht associated with dizziness or vertigo (14 sources)Vertigo; Translations: [Dizziness and giddiness]Onset: 04-27-2025 09-94-0830ZspkxjslBiegeqni mellitus without complication (20 sources)Prediabetes; Translations: [Prediabetes]Onset: EpisodicDisorders of lipid metabolism (20 sources)Hyperlipidemia, unspecified; Translations: [Dyslipidemia]Onset: 63-63-2345KsyyaigObbakoaqpwoktk and diverticulitis (2 sources)Diverticula of intestine; Translations: [Diverticulosis of large intestine without perforation or abscess without bleeding]Onset: 08-14-2023 ChronicEssential hypertension (20 sources)Essential (primary) hypertension; Translations: [Hypertensive disorder]Onset: 252926-61-7407AtbapkhQxibw valve disorders (1 source)Rheumatic tricuspid insufficiency; Translations: [RHEUMATIC TRICUSPID INSUFFICIENCY]Onset: 30-10-7154XwbihtgByxkk and unspecified benign neoplasm (2 sources)Benign neoplasm of sigmoid colon; Translations: [Benign neoplasm of sigmoid colon]Onset: 25-30-6544RxtjlcuvSmkwq connective tissue disease (2 sources)Pain in left foot; Translations: [Pain in left foot]08-13-2025 EpisodicOther nutritional; endocrine; and metabolic disorders (9 sources)Body mass index 30+ - obesity; Translations: [Obesity, unspecified] Onset: 711885-66-8971GlxvzlqNvaqz nutritional; endocrine; and metabolic disorders (7 sources)Obesity caused by energy imbalance; Translations: [Class 1 obesity due to excess calories with serious comorbidity and body mass index (BMI) of 33.0 to 33.9 in adult]Onset: 401349-40-2251XdaealzLgcpc nutritional; endocrine; and metabolic disorders (2 sources)Epmcchgjfe21-24-9276WqmeedjdYmckd nutritional; endocrine; and metabolic disorders (2 sources)Overweight in adulthood with body mass index of 25 or more but less than 1308-44-7801WmogxuxhAahqw screening for suspected conditions (not mental disorders or infectious disease) (13 sources)Encounter for screening mammogram for malignant neoplasm of breast; Translations: [Screening for malignant neoplasm of colon done]Onset: 08-01-2022 EpisodicOther upper respiratory disease (2 sources)Seasonal njhxuws56-52-2099SqgcqarIedoa upper respiratory disease (17 sources)Allergic rhinitis due to pollen; Translations: [Allergic rhinitis due to pollen]Onset: 657541-52-2082KjjouwiNaaqrbgm codes; unclassified (2 sources)Family history of polyp of tyvyy35-59-6856QupcbsvnHynhgzqb codes; unclassified (1 source)Family history of malignant neoplasm of digestive organ; Translations: [Family history of malignantneoplasm of digestive organs]Onset: 08-14-2023 EpisodicResidual codes; unclassified (1 source)Family history of cancer of istaf58-09-7304DwrseodaDvsdblflevtg (4 sources)Patient encounter -35-3350 Past or Other Problems Problem ClassificationProblemDateDocumented DateEpisodic/ChronicCardiac dysrhythmias (4 sources)Palpitations; Translations: [PALPITATIONS]Onset: 80-67-1823Jnvxixfc Mood disorders (9 sources)Mood disordersOnset: Other aftercare (1 source)Other senior care (current) drug therapy; Translations: [[facility] CURRENT DRUG THERAPY]Onset: 41-68-9316EhyyakmgNpmof aftercare (10 sources)Long-term current use of drug therapy; Translations: [Other senior care (current) drug therapy]Onset: 585192-84-2687BqjiutukXkdxc aftercare (5 sources)Patient encounter status; Translations: [Other senior care (current) drug therapy]Onset: 743983-20-1637EaeicdesDevtf lower respiratory disease (4 sources)Shortness of breath; Translations: [SHORTNESS OF BREATH]Onset: 32-76-2103EyqzsxxsLompj nutritional; endocrine; and metabolic disorders (1 source)Overweight; Translations: [OVERWEIGHT]Onset: 49-60-5903Ybsszfip Residual codes; unclassified (1 source)Family history of malignant neoplasm of digestive organs; Translations: [FAM HX MALIG NEOPLASM DIGESTIV ORGN]Onset: 32-01-8680Dqbgvowo Results Test NameValueInterpretationReference RangeFacilityALL CBC WITH AUTO DIFFon 43-27-2237VXRVBSMHM ABSOLUTE AUTO0.0NOCO HealthcareBasophils/100 WBC (Bld)0.2 % 0.2 - 2.0 %[facility] Cancer CenterEosinophils/100 WBC (Bld)1.9 %0.9 - 7.0 %[facility] Cancer CenterErythrocyte distribution width (RBC) [Ratio]12.5 %11.0 - 15.0 %[facility] Cancer CenterHematocrit (Bld) [Volume fraction]38.8 %36.0 - 48.0 %[facility] Hemoglobin (Bld) [Mass/Vol]13.0 g/dL12.0 - 16.0 g/dLEllis Fischel Cancer CenterIMMATURE GRANULOCYTES ABS AUTO0.01NONorthwest Medical CenterImmature granulocytes/100 WBC (Bld)0.2 % 0.0 - 0.5 %[facility] Cancer CenterInterpretation and review of laboratory results AbnormalNONorthwest Medical CenterLYMPHOCYTES ABSOLUTE AUTO1.5N[facility] Lymphocytes/100 WBC (Bld)23.7 %20.5 - 60.0 %[facility] CenterH (RBC) [Entitic mass]31.3 pg26.7 - 34.0 pgEllis Fischel Cancer CenterMCHC (RBC) [Mass/Vol]33.5 g/dL29.9 - 35.2 g/dLEllis Fischel Cancer CenterMCV (RBC) [Entitic vol]93.5 fL81.0 - 99.0 fLEllis Fischel Cancer CenterMONOCYTES ABSOLUTE AUTO0.5NOCO HealthcareMonocytes/100 WBC (Bld)7.3 % 1.7 - 12.0 %[facility] CenterNEUTROPHILS ABSOLUTE AUTO4.2[facility] Neutrophils/100 WBC (Bld)66.7 %43.0 - 75.0 %[facility] Cancer CenterPlatelet mean volume (Bld) [Entitic vol]10.4 fL9.5 - 13.5 fLEllis Fischel Cancer CenterTBH EO #0.1[facility] TBH [id number] [facility] HospitalTB RBC4.15LowNOMS L[facility] City HospitalTB WBC6.3[facility] CLINISYNCNOCO HealthcareAmbulatory Visit Summaryon 09-57-8491Ooutewzumo Visit Summary CHRISTELLE MOHAN :1955 Visit Date:08/14/2023 Ambulatory Visit Instructions Your Care Team Attending Physician - GERI STANTON, Job Pulliam Primary Care Physician - SHAUN SANCHEZ MD This Is Your Medications List atorvastatin (Lipitor 20 mg Tab) hydrochlorothiazide-lisinopril (Zestoretic 25 mg-20 mg Tab) metoprolol (Metoprolol tartrate 25 mg Tab) Procedures Performed Colonoscopy (08/01/2023), Colonoscopy (06/26/2018), Abdominal hysterectomy, Colonoscopy, Colonoscopy, Colonoscopy, Tonsillectomy. Medications What How Much When Instructions Unchanged atorvastatin (Lipitor 20 mg Tab) 1 Tablets By Mouth Every day Unchanged hydrochlorothiazide-lisinopril (Zestoretic 25 mg-20 mg Tab) 1 Tablets [...] neoplasm of colon Seasonal allergies [facility]/Clinic Noteon 26-55-2121Ghsulyn Surgery Office/Clinic NoteChief Complaint post operative follow up HPI Staff 13 day post operative follow up post colonoscopy with sigmoid polypectomy. History of Present Illness s/p colonoscopy due to fmhx of colon cancer; had moderate sigmoid diverticulosis; and small sigmoidpolyp removed; polyp was not retrieved, but appearance was consistent with possible tubular adenoma. patient denies abd pain or blood in stools. Review of Systems ROS - Provider Constitutional: no fever, no sweats, no weight loss. Eyes: no glasses, no blurred vision, no visual loss. ENMT: no dentures, no hoarseness, no swallowing difficulties, no hearing loss, no ear infection(s),no nose bleeds. Cardiovascular: normal blood pressure, no [...] Brother. Immunizations Vaccine Date Status SARS-CoV-2 (COVID-19) mRNAMUL.ORD![id number] 10/20/2022 Recorded SARS-CoV-2 (COVID-19) mRNA BNT-162b2 vax 09/06/2021 Recorded SARS-CoV-2 (COVID-19) mRNA BNT-162b2 vax 02/08/2021 Recorded SARS-CoV-2 (COVID-19) mRNA BNT-162b2 vax 01/17/2021 RecordedNoMemorial Health SystemComment on above:Result Comment: Electronically Signed By: GERI STANTON, Job Pulliam\.br\Date and Time Signed: 08/14/23 13:51 EDTReminderson 08-14-2023 Reminders From: Mayra Vivar LPN To: [facility] - Clinical; Sent: 08/14/2023 13:31:54 EDT Show up: 07/01/2028 07:00:00 EDT Subject: colonoscopy recall Due Date/Time: 08/01/2028 07:00:00 EDT Reminder/Recall Patient due for surveillance colonoscopy 08/01/2028.[facility] RehabilitationOutside Colonoscopyon 27-27-4796Vfjobqm Colonoscopy [id number]#1.00CD:127[facility] RehabilitationConsent for Procedure/Surgeryon 90-55-9186Ojhbwmt for Procedure/Surgery [id number]#1.00CD:127[facility] for RehabilitationFormson [id number]#1.00CD:127 [facility] RehabilitationAmbulatory Visit Summaryon 64-68-2928Hqrpismdlu Visit Summary KRISTINE MOHANSENG Hunt :1955 Visit Date:07/11/2023 Ambulatory Visit Instructions Your Care Team Attending Physician - GERI STANTON, Job Pulliam Primary Care Physician - DANIEL STANTON, SHAUN Referring Physician - SHAUN SANCHEZ MD This Is Your Medications List Contact prescribing physician if questions or concerns atorvastatin (Lipitor 20 mg Tab) hydrochlorothiazide-lisinopril (Zestoretic 25 mg-20 mg Tab) metoprolol (Metoprolol [...] prescribing physician if questions or concerns Unchanged hydrochlorothiazide-lisinopril (Zestoretic 25 mg-20 mg Tab) 1 Tablets [...] for colorectal cancer Seasonal allergies Ventricular ectopy [facility] RehabilitationPhysician Referralon 06-21-2023 Physician [id number]#1.00CD:127Normal [facility] HospitalCBC AUTO DIFFon 41-92-5933NDQN #0.0 103/ulNormal 0.0-0.1St. [facility] HospitalComment on above:Performed By: #### CBC #### [facility] [address] [place] [address] Dr. Job Godfreysophils/100 WBC (Bld)0.3 %Normal0.2-2.0[facility] Comment on above:Performed By: #### CBC #### [facility] [address] [place] [address] Dr. Job Montemayor #0.2 103/ulNormal0.0-0.7The Premier HealthComment on above: Performed By: #### CBC #### [facility] [address] [place] [address] Dr. Job Urenaosinophils/100 WBC (Bld)2.4 %Normal0.9-7.0[facility] Comment on above:Performed By: #### CBC #### [facility] [address] [place] [address] Dr. Job Urenarythrocyte distribution width (RBC) [Ratio]13.6 %Opofqr82.0-15.0 The Premier HealthComment on above:Performed By: #### CBC #### [facility] [address] [place] [address] Dr. Job CerdaHematocrit (Bld) [Volume fraction]40.1 %Klgamh05.0-48.0The Premier HealthComment on above:Performed By: #### CBC #### [facility] [address] [place] [address] Dr. Job CerdaHemoglobin (Bld) [Mass/Vol]13.5 g/xVCksqwt95.0-16.0The Premier HealthComment on above:Performed By: #### CBC #### [facility] [address] [place] [address] Dr. Job CerdaIG #0.02 10e3/ulNormal0.00-0.03The Premier HealthComment on above:Performed By: #### CBC #### [facility] [address] [place] [address] Dr. Job CerdaIG %0.3 %Normal0.0-0.5The Premier HealthComment on above: Performed By: #### CBC #### [facility] [address] [place] [address] Dr. Job BetancourtMPH #2.4 103/ulNormal1.2-3.8The [facility] HealthComment on above:Performed By: #### CBC #### [facility] [address] [place] [address] Dr. Job Betancourtmphocytes/100 WBC (Bld)35.7 %Lutzvr02.5-60.0The [facility] HealthComment on above:Performed By: #### CBC #### [facility] [address] [place] [address] Dr. Job Phan DIFF REQNONormalThe Premier HealthComment on above: Performed By: #### CBC #### [facility] [address] [place] [address] Dr. Job Lopez (RBC) [Entitic mass]32.0 kkXvubsx20.7-34.0The Premier HealthComment on above:Performed By: #### CBC #### [facility] [address] [place] [address] Dr. Job Lopez (RBC) [Mass/Vol]33.7 g/xSBnedpy69.9-35.2The Premier HealthComment on above:Performed By: #### CBC #### [facility] [address] [place] [address] Dr. Job Lopez (RBC) [Entitic vol]95.0 qTXmofat01.0-99.0The Premier HealthComment on above:Performed By: #### CBC #### [facility] [address] [place] [address] Dr. Job Barajas #0.6 103/ulNormal0.3-0.8The Premier HealthComment on above:Performed By: #### CBC #### [facility] [address] [place] [address] Dr. Job Martinezocytes/100 WBC (Bld)8.4 %Normal1.7-12.0[facility] Comment on above:Performed By: #### CBC #### [facility] [address] [place] [address] Dr. Job Velazquez #3.5 103/ulNormal1.4-6.5The [facility] HealthComment on above:Performed By: #### CBC #### [facility] [address] [place] [address] Dr. Job Groverutrophils/100 WBC (Bld)52.9 %Atyeuq99.0-75.0The Premier HealthComment on above:Performed By: #### CBC #### [facility] [address] [address] [address] Job CerdaPlatelet mean volume (Bld) [Entitic vol]10.9 fLNormal9.5-13.5The Premier HealthComment on above:Performed By: #### CBC #### [facility] [address] [address] [address] Job CerdaPLT177 103/lpNumsox742-637Qpf Premier HealthComment on above: Performed By: #### CBC #### [facility] [address] [place] [address] Dr. Job CerdaRBC4.22 106/ulNormal4.20-5.40The [facility] HealthCommunising memorial hospital on above:Performed By: #### CBC #### [facility] [address] [place] [address] Dr. Job CerdaWBC6.7 103/ulNormal4.0-11.0The [facility] HealthComment on above: Performed By: #### CBC #### [facility] [address] [place] [address] Dr. Job CerdaGLYCOHEMOGLOBIN A1Con 90-85-7912YJB RECOMMENDATIONSEE BELOWOhiohealth Pickerington Methodist HospitalCommunising memorial hospital on above:Result Comment: ADA RECOMMENDED LIMIT 4.0 - 6.0 ADA THERAPEUTIC TARGET < 7.0 ACTION SUGGESTED > 7.0Performed By: #### A1C #### [facility] [address] [place] [address] Dr. Job CerdaGlucose [Mass/Vol]120 mg/dLNoAshtabula General HospitalCommunising memorial hospital on above:Performed By: #### A1C #### [facility] [address] [place] [address] Dr. Job CerdaHbA1c (Bld) [Mass fraction]5.8 %Normal4.5-6.2[facility] on above:Performed By: #### A1C #### [facility] [address] [place] [address] Dr. Job CerdaLIPID PROFILEon 22-71-9601FDYL-HDL RATIO NORMSEE BELOWUniversity Hospitals Samaritan Medical Center on above:Result Comment: 3.3 - 4.4 LOW RISK 4.4 - 7.1 AVERAGE RISK 7.1 - 11.0 MODERATE RISK >11.0 HIGH RISKPerformed By: #### TSH, BMP, LIVER, LIPID #### [facility] [address] [address] [address] Job CerdaCholesterol [Mass/Vol]139 mg/dLNormal<=200[facility] Comment on above:Performed By: #### TSH, BMP, LIVER, LIPID #### [facility] [address] [address] [address] Job Manciniesterol in HDL [Mass/Vol]65 mg/dLCritically pdky30-80ZjfSt. Vincent HospitalComment on above:Performed By: #### TSH, BMP, LIVER, LIPID #### [facility] [address] [place] [address] Dr. Job Manciniesterol in LDL [Mass/Vol]57.8 mg/dLNoAshtabula General HospitalComment on above:Performed By: #### TSH, BMP, LIVER, LIPID #### [facility] [address] [address] [address] Job Galvez.total/Cholesterol in HDL [Mass ratio]2.1 {ratio} NormalSt. Vincent HospitalCommunising memorial hospital on above:Performed By: #### TSH, BMP, LIVER, LIPID #### [facility] [address] [address] [address] Job Jain NORMAL> or = 60 mg/dl - LOW CARDIOVASCULAR RISK <40 mg/dl - HIGH CARDIOVASCULAR RISKUniversity Hospitals Portage Medical CenterComment on above:Performed By: #### TSH, BMP, LIVER, LIPID #### [facility] [address] [place] [address] Dr. Job Klein CALC NORMALSEE BELOWUniversity Hospitals Portage Medical CenterCommunising memorial hospital on above:Result Comment: <100 mg/dl OPTIMAL 100 - 129 mg/dl NEAR OR ABOVE OPTIMAL 130 - 159 mg/dl BORDERLINE HIGH 160 - 189 mg/dl HIGH >190 mg/dl VERY HIGH Performed By: #### TSH, BMP, LIVER, LIPID #### [facility] [address] [address] [address] Job CerdaTriglyceride [Mass/Vol]81 mg/dLNormal<=150[facility] Comment on above:Performed By: #### TSH, BMP, LIVER, LIPID #### [facility] [address] [address] [address] Job SalazarLDL CALC16.2 mg/dLNormalThe Premier HealthComment on above: Performed By: #### TSH, BMP, LIVER, LIPID #### [facility] [address] [address] [address] Job Prado PROFILEon 89-19-4174Lhtgloz [Mass/Vol]3.8 g/dLNormal3.4-5.0 The [facility] HealthComment on above:Performed By: #### TSH, BMP, LIVER, LIPID #### [facility] [address] [address] [address] Job CerdaAlbumin/Globulin [Mass ratio]1.1 {ratio}NormalThe Premier HealthComment on above:Performed By: #### TSH, BMP, LIVER, LIPID #### [facility] [address] [address] [address] Job Spencer [Catalytic activity/Vol]79 U/GLwlpqi26-429Wrv [facility] HealthComment on above:Performed By: #### TSH, BMP, LIVER, LIPID #### [facility] [address] [address] [address] Job Gottlieb [Catalytic activity/Vol]33 U/OYnlrpb20-64Vnm [facility] North Hospitalment on above:Performed By: #### TSH, BMP, LIVER, LIPID #### [facility] [address] [address] [address] Job Calderon [Catalytic activity/Vol]13 U/LCritically spi21-36Fww [facility] on above:Performed By: #### TSH, BMP, LIVER, LIPID #### [facility] [address] [address] [address] Yilan ChangBILI, CONJUGATED0.2 mg/dLNormal0.0-0.2[facility] Comment on above:Performed By: #### TSH, BMP, LIVER, LIPID #### [facility] [address] [address] [address] Job CerdaBilirubin [Mass/Vol]0.7 mg/dLNormal0.2-1.0[facility] Comment on above:Performed By: #### TSH, BMP, LIVER, LIPID #### [facility] [address] [address] [address] Job CerdaGlobulin (S) [Mass/Vol]3.4 g/dLNormalThe Premier HealthComment on above:Performed By: #### TSH, BMP, LIVER, LIPID #### [facility] [address] [address] [address] Job CerdaProtein [Mass/Vol]7.2 g/dLNormal6.4-8.2[facility] Comment on above:Performed By: #### TSH, BMP, LIVER, LIPID #### [facility] [address] [address] [address] Job CerdaMG MAMM SCREEN 3D TASHIA CADon 83-90-7224ZE MAMM SCREEN 3D TASHIA CAD Patient: CHRISTELLE MOHAN Exam Date: 07/31/2022 : 1955 Gender:F Ordering : DR SHAUN SANCHEZ . Admission #: [id number] Family : Order #: [id number] CLICK HERE TO VIEW EXAM RADIOLOGY REPORT [...] at age 65. LOCATION: [facility] BREAST COMPOSITION: Heterogeneously dense,which may obscure small [...] by: Osman Javed M.D. on 07/31/2022 at 11:56[facility] Portage Medical CenterPROF CHEM 8 (BAS METB)on 01-13-0897Paumi gap [Moles/Vol]10.1 mmol/L NormalThe Premier HealthComment on above:Performed By: #### TSH, BMP, LIVER, LIPID #### [facility] [address] [address] [address] Job CerdaCalcium [Mass/Vol]9.2 mg/dLNormal8.5-10.1[facility] Comment on above:Performed By: #### TSH, BMP, LIVER, LIPID #### [facility] [address] [address] [address] Job CerdaChloride [Moles/Vol]103 mmol/HDnraag97-797AzbSt. Vincent Hospital Comment on above:Performed By: #### TSH, BMP, LIVER, LIPID #### [facility] [address] [address] [address] Job CerdaCO2 [Moles/Vol]30.6 mmol/ECghmvn35.0-32.0[facility] Comment on above:Performed By: #### TSH, BMP, LIVER, LIPID #### [facility] [address] [address] [address] Job CerdaCreatinine [Mass/Vol]1.00 mg/dLNormal0.55-1.02The Premier HealthComment on above:Performed By: #### TSH, BMP, LIVER, LIPID #### [facility] Laboratory [address] [address] [address] Kaiser ChangEGFR-AF MALDIVIAN>60Normal>=60The Premier HealthComment on above:Performed By: #### TSH, BMP, LIVER, LIPID #### [facility] [address] [address] [address] Job UrenaGFR-NON AF EKJUFWMA06 mL/min/1.34v2Falohgxpna low>=60The [facility] Hospitalment on above:Performed By: #### TSH, BMP, LIVER, LIPID #### [facility] [address] [address] [address] Job CerdaGlucose [Mass/Vol]115 mg/dLCritically nsnk57-845Dmv Premier HealthComment on above:Performed By: #### TSH, BMP, LIVER, LIPID #### [facility] [address] [place] [address] Dr. Job CerdaPotassium [Moles/Vol]3.7 mmol/LNormal3.5-5.1The [facility] Comment on above:Performed By: #### TSH, BMP, LIVER, LIPID #### [facility] [address] [address] [address] Job CerdaSodium [Moles/Vol]140 mmol/PMglesb872-587Has [facility] Comment on above:Performed By: #### TSH, BMP, LIVER, LIPID #### [facility] [address] [place] [address] Dr. Jbo CerdaUrea nitrogen [Mass/Vol]20.0 mg/dLCritically high7.0-18.0The Premier HealthComment on above:Performed By: #### TSH, BMP, LIVER, LIPID #### [facility] [address] [place] [address] Dr. Job [place] nitrogen/Creatinine [Mass ratio]20.0 mg/mgNormalThe Premier HealthComment on above:Performed By: #### TSH, BMP, LIVER, LIPID #### [facility] [address] [place] [address] Dr. Job Luis 40-92-9045IVY0.723 uIU/mLNormal0.358-3.740The Premier HealthComment on above:Performed By: #### TSH, BMP, LIVER, LIPID #### [facility] [address] [address] [address] Kaiser ChangECHOCARDIO M/2D COMPLETEon 22-30-9126VBRAULNFVO M/2D COMPLETE Patient: CHRISTELLE MOHAN Exam Date: 02/22/2022 : 1955 Gender:F Ordering : DR SHAUN SANCHEZ . Admission #: [id number] Family : Order #: [id number] CLICK HERE TO VIEW EXAM ECHOCARDIOGRAM REPORT [...] Area(A4C): 14.30 cm2 Left Atrium Systolic Volume(A2C): 32743 mm3 Left Atrium Systolic Volume(A4C): 90288 mm3 Mitral Valve MV E to A [...] by: Bob Fiore M.D. on 02/22/2022 at 18:37[facility] Vital Signs Date TimeVital SignValuePerforming DokkeywrgDqgydgmp65-74-5709 13:51-0400Body blbkoy422.02 cmShaun Sanchez MD Work Phone: [facility]10-02-2025 13:51-0400 Body mass index (BMI) [Ratio]33.1 kg/m2Shaun Sanchez MD Work Phone: [facility]10-02-2025 13:51-0400 Body xrhaurucbqf42.5 [degF]Shaun Sanchez MD Work Phone: [facility]10-02-2025 13:51-0400 Body swkaff31.82 kgShaun Sanchez MD Work Phone: [facility]10-02-2025 13:51-0400 Diastolic blood xdianbse37 mm[Hg]Shaun Sanchez MD Work Phone: [phone])[address]10-02-2025 13:51-0400 Heart rate60 /minShaun Sanchez MD Work Phone: [phone])[address]10-02-2025 13:51-0400 Respiratory rate20 /minShaun Sanchez MD Work Phone: [phone] [address]10-02-2025 13:51-0400 SaO2% (BldA) [Mass fraction]97 %Shaun Sanchez MD Work Phone: [phone]10-02-2025 13:51-0400 Systolic blood xhpwxorh931 mm[Hg]Shaun Sanchez MD Work Phone: [phone])[address]174 [address]06-16-2025 08:17-0400 Body cmShaun Sanchez MD Work Phone: [facility] CenterPpohpcalmi32-92-9183 08:17-0400Body mass index (BMI) [Ratio]33.13 kg/m2Shaun Sanchez MD Work Phone: [facility] CenterJhoepbyfwg01-90-3476 08:17-0400Body temperature 97.5 [degF]Shaun Sanchez MD Work Phone: [facility] CenterXbctpgjlzc05-69-7949 08:17-0400Body jewvcz96.82 kgShaun Sanchez MD Work Phone: [facility] CenterTqeimbfopd29-31-0276 08:17-0400Diastolic blood jhbwzdyf10 mm[Hg]Shaun Sanchez MD Work Phone: [facility] CenterBfliyazyrs24-82-1706 08:17-0400Heart rate96 /min Shaun Sanchez MD Work Phone: [facility] CenterJamevcpdaa75-75-2161 08:17-0400Respiratory rate20 /minShaun Sanchez MD Work Phone: [facility] CenterPhkdrdkuwa42-37-1877 08:17-6249FtS2% (BldA) [Mass fraction]97 %Shaun Sanchez MD Work Phone: [facility] CenterLjgigmlfwc00-77-0198 08:17-0400Systolic blood tfekgcaw598 mm[Hg]Shaun Sanchez MD Work Phone: [facility] CenterSshxwdsgay30-67-3230 08:08-0500Body ocvtuj968 cm Shaun Sanchez MD Work Phone: [phone] [place], [place] [address]Zgqqseqojq26-48-3149 08:08-0500Body mass index (BMI) [Ratio]32.95 kg/m2Shaun Sanchez MD Work Phone: [phone])[facility] [place], [place] [address]Dlgghrsked62-19-1963 08:08-0500Body temperature 97.5 [degF]Shaun Sanchez MD Work Phone: [phone] [place], [place] [address]Jetwwuukwx17-39-6980 08:08-0500Body dhyboy01.37 kgShaun Sanchez MD Work Phone: [phone] [place], [place] [address]Nilvpkaqyo42-72-1469 08:08-0500Diastolic blood mupibzef25 mm[Hg]Shaun Sanchez MD Work Phone: 1(286)692-[address] [place], [place] [address]Bevoqtwdxr89-27-5422 08:08-0500Heart rate73 /min Shaun Sanchez MD Work Phone: [facility] CenterFjbxliexma01-74-0852 08:08-0500Respiratory rate22 /minShaun Sanchez MD Work Phone: [phone])096-[address] [place], [place] [address]Rhpusqofwc75-96-5311 08:08-2306AiD2% (BldA) [Mass fraction]93 %Shaun Sanchez MD Work Phone: [facility] CenterQkrthnmtfm35-21-2952 08:08-0500Systolic blood ouvvpnsw937 mm[Hg]Shaun Sanchez MD Work Phone: [facility] CenterEhvigfwxxn32-18-1881 08:16-0400Body cm Shaun Sanchez MD Work Phone: 1(476)277-[address] [place], [place] [address]Dsornuumcd01-62-9739 08:16-0400Body mass index (BMI) [Ratio]32.06 kg/m2Shaun Sanchez MD Work Phone: [facility] CenterHsykbjwpbh11-94-2300 08:16-0400Body temperature 97.11 [degF]Shaun Sanchez MD Work Phone: [facility] CenterAalqwnzrjo26-98-8852 08:16-0400Body xanfvn93.1 kg Shaun Sanchez MD Work Phone: [facility] CenterTjjhuiybau34-48-7497 08:16-0400Diastolic blood utbperwi63 mm[Hg]Shaun Sanchez MD Work Phone: [facility] CenterLivhumbuey09-65-9668 08:16-0400Heart rate59 /min Shaun Sanchez MD Work Phone: [facility] CenterXjjqxxvuyl29-66-6683 08:16-0400Respiratory rate22 /minShaun Sanchez MD Work Phone: [facility] CenterObbofcyqlu90-69-4968 08:16-6511XfZ7% (BldA) [Mass fraction]97 %Shaun Sanchez MD Work Phone: [address] [address]Zloyfohpzz45-47-7386 08:16-0400Systolic blood rbrxyrfx524 mm[Hg]Shaun Sanchez MD Work Phone: [facility] CenterDuvtskgmbn19-34-6155 14:16-0400Blood Pressure LocationMichael NILL [facility] Unyhrhfh09-18-6546 14:16-0400Diastolic blood ocrtemdc72 mm[Hg]Job NEVAREZ [facility] Mjjkmogc28-63-5529 14:16-0400Heart rate 72 /minMichael NILL [facility] Ybrnkrip26-68-9111 14:16-0400 Respiratory rate16 /minMichael NILL [facility] Vinlbesl87-53-0922 14:16-0400Systolic blood oeahvjmz274 mm[Hg]Job NEVAREZ General Surgery [place] Encounters Encounter DateEncounter TypeCare ProviderFacilityStart: 08-13-2025 End: 70-11-3751wdedohsqdqCspy Naderer MD Work Phone: [facility] Work Phone: Start: 08-13-2025 End: 66-51-3896Urwpopp encounter procedureShaun Sanchez MD-[facility] [place] Work Phone: Start: 29-92-5993Rvt-patient / Non-visitShaun Sanchez MD-[facility] Work Phone: Start: 05-27-2025 End: 83-01-0794Upwrxscpn encounterSammantdestin Looney PTNOMS CI PTComment on above:PT Vertigo fu; fu; FinalStart: 05-05-2025 End: 49-60-1325Wqvfwk flowsheetSammantha Looney PTNOMS CI PTStart: 05-05-2025 End: 74-59-6509Bcfmdk flowsheetSammantha Looney PTNOMS CI PTStart: 05-05-2025 End: 08-71-0556jgdfiayaqbPfqcwqcgb Looney PTNOMS CI PTComment on above: Vertigo (Primary Dx)Start: 04-27-2025 End: 20-51-3500Ypbbau Misa Sanchez MD Work Phone: noMS CWM FMStart: 04-27-2025 End: 30-02-3220Ligxzq Misa Sanchez MD Work Phone: noms CWM FMStart: 04-27-2025 End: 66-23-6376Cqbkzspwx encounterSammantdestin Looney PTNOMS CI PTComment on above:PT for Vertigo (Call to fu on 05/01/25.); FU to check status; Scheduled (PT 05/05/25 w/ Arden Looney PT.)Start: 04-27-2025 End: 52-30-8824Yyzsnf outpatient visit 25 minutesMarc Naderer MD Work Phone: NOVX CWM FMComment on above:Essential hypertension, benign (Primary Dx); Ventricular ectopy; Vertigo; Labyrinthitis, unspecified lateralityStart: 04-27-2025 End: 35-70-4000sffkxocmbpEDID NADERERNot AvailableStart: 10-22-2024 End: 81-97-2502Bbaxfi Misa Sanchez MD Work Phone: NOVX CWM FMStart: 10-22-2024 End: 04-37-4463Uzdguh Misa Sanchez MD Work Phone: NOTD CWM FMStart: 10-22-2024 End: 50-21-0791Bbdqjgu encounter Yoseph Sanchez MD Work Phone: [facility] Work Phone: Start: 10-22-2024 End: 41-83-4462Gcujqv follow up visit related to original Tika Sanchez MD Work Phone: noms CWM FMComment on above:Medicare annual wellness visit, subsequent (Primary Dx)Start: 10-22-2024 End: 85-10-4320fhvfmxysqzPREJ NADERERNot AvailableStart: 07-11-2024 End: 89-25-7809Laljaeswo Result EncounterShaun Sanchez MD Work Phone: [facility] External Department UnsolicitedStart: 07-11-2024 End: 57-57-9121Yzpfqajre Result EncounterShaun Sanchez MD Work Phone: [facility] External Department UnsolicitedStart: 07-07-2024 End: 07-84-7312Bpooul Misa Sanchez MD Work Phone: NOAQ CWM FMStart: 07-07-2024 End: 09-56-3873Tlewqv Misa Sanchez MD Work Phone: noms CWM FMStart: 07-07-2024 End: 85-18-6890gosweuztqwLLUL NADERERNot AvailableStart: 07-07-2024 End: 49-82-9780Yliycu outpatient visit 15 minutesShaun Sanchez MD Work Phone: noms CWM FMComment on above:Essential hypertension, benign (CMS/HCC) (Primary Dx); Ventricular ectopy; Seasonal allergic rhinitis due to pollen; Dyslipidemia (CMS/HCC); Prediabetes; Encounter for long-term current use of medication; Obesity (BMI 30-39.9)Start: 08-14-2023 End: 88-13-1454cqcyjrtkfmVenfyzv R NILLFacility: tart: 08-14-2023 End: 47-58-3713Aowmhbd encounter procedureMichael R NILL General Surgery Nill/Said [place] Start: 31-69-4259emkgwslobdBoylueb NILLFacility: JeremiekStart: 08-01-2023 End: 04-92-0316vrakheqjulUiyahfl R NILLFacility:CD:[id number]: 07-11-2023 End: 54-06-8062alzqggwtygDwwwfqd R NILLFacility: ueStart: 07-11-2023 End: 14-41-4980Kqehbor encounter procedureMichael R NILL General Surgery Nill/[facility]aid [place] Start: 26-94-2719arwazhplhkJlnhkyt R NILLFacility: [place]vueStart: 07-31-2022 End: 76-25-8978fnewqrvbldKL SHAUN A NADERERFacility:L6Edusn: 02-22-2022 End: 73-70-5722qmoworlqhtEO SHAUN A NADERERFacility:W8Kgucc: 02-03-2022 End: 10-09-7042vklldoqtvzOU SHAUN A NADERERFacility:H1 Procedures DateProcedureProcedure DetailPerforming ClinicianStart: 22-09-2001Xovrydsritz Shaun Sanchez MD Work Phone: Start: 26-63-4479VNJ CBC WITH AUTO DIFFShaun Sanchez MD Work Phone: Start: 07-79-0632MntabhkiwnpBqbv Naderer MD Work Phone: Start: 09-06-2637XtdzdwbsfgvJarn Naderer MD Work Phone: Start: 63-22-3711IhxnquaxvolQyarzrq NILL Start: 42-91-0000HakitemxtkaBsnzffa NILL Abdominal hysterectomyMichael NILL ColonoscopyMichael NILL TonsillectomyMichael NILL Plan of Treatment DateCare ActivityDetailAuthorStart: 11-29-2092Becjdrnab for malignant neoplasm of colonNOMS HealthcareStart: 10-26-2025 End: 25-42-7758Ubzplpl encounter mfrnejaib36/15/2025 11:00 AM EST Office Visit [facility] [address] [place] [phone] Shaun Sanchez MD [address] [place] [phone] [facility] CWM FMStart: 12-11-2025Medicare Annual Wellness (AWV)Medicare Annual Wellness (AWV)[facility]OMS HealthcareStart: 45-79-8657Xprifdgcl for malignant neoplasm of breastMammogramNOMS HealthcareStart: 59-54-5622Emhjbjzic vaccinationInfluenza Vaccine (#1)[facility]OM[facility] HealthcareStart: 05-12-2025 End: 79-34-5968ebvdkwafip15/01/2025 9:00 AM EDT Treatment [facility] [address] [place] [address] Kapil Looney, PTNOMS CI PTStart: 05-05-2025 End: 11-97-4187bdktiqpgia36/24/2025 1:30 PM EDT Evaluation [facility] [address] [place] [address] Kapil Looney, PT VertigoNOMS CI PTComment on above:VertigoStart: 04-27-2025 End: 83-21-5309Hjzixbf encounter procedureNOMS CWM FMComment on above:Arrived Start: 10-22-2024 End: 55-23-2081Spqssve encounter procedureNOMS CWM FMComment on above:Arrived Start: 34-50-8083Jknymxdej for malignant neoplasm of breastMammogramNOMS HealthcareStart: 07-65-6876Rfmzzhonl vaccinationInfluenza Vaccine (#1)[facility]OM[facility] HealthcareStart: 07-07-2024 End: 18-10-2659Vnhex metabolic 1998 panel - Serum or PlasmaBasic metabolic panel Lab Routine Essential hypertension, benign (CMS/HCC) Expected: 07/07/2024 (Gal roximate), Expires: 07/07/2025NOCO HealthcareComment on above:Expected: 07/07/2024 (Approximate), Expires: 07/07/2025Start: 07-07-2024 End: 39-26-8968GYG W Auto Differential panel - BloodCBC and differential Lab Routine Encounter for long-term current use of medication Expected: 07/07/2024 (Approximate), Expires: 07/07/2025NOCO HealthcareComment on above:Expected: 07/07/2024 (Approximate), Expires: 07/07/2025Start: 07-07-2024 End: 24-82-3553Dqhxsampnq A1c/Hemoglobin.total in BloodHemoglobin A1c Lab Routine Prediabetes Expected: 07/07/2024 (Approximate), Expires: 07/07/2025[facility] Work Phone: Comment on above:Expected: 07/07/2024 (Approximate), Expires: 07/07/2025Start: 07-07-2024 End: 72-04-1863Jdyluve function 2000 panel - Serum or PlasmaHepatic function panel Lab Routine Encounter for long-term current use of medication Expected: 07/07/2024 (Approximate), Expires: 07/07/2025NOMS HealthcareComment on above: Expected: 07/07/2024 (Approximate), Expires: 07/07/2025Start: 07-07-2024 End: 33-19-8384Lczbj 1995 panel - Serum or PlasmaLipid panel Lab Routine Dyslipidemia (CMS/HCC) Expected: 07/07/2024 (Approximate), Expires: 07/07/2025 NOMS HealthcareComment on above:Expected: 07/07/2024 (Approximate), Expires: 07/07/2025Start: 07-07-2024 End: 29-72-5989Sjwaqaywmye [Units/volume] in Serum or PlasmaTSH Lab Routine Obesity (BMI 30-39.9) Expected: 07/07/2024 (Approximate), Expires: 07/07/2025 [facility] HealthcareComment on above:Expected: 07/07/2024 (Approximate), Expires: 07/07/2025Start: 47-91-7732Brkiploay for malignant neoplasm of colonEXCELSIOR SPR[facility] HealthcareStart: 05-26-9014Lvxzljwzfrkc Vaccine: 65+ Years (1 of 1 - PCV) Pneumococcal Vaccine: 65+ Years (1 of 1 - PCV)[facility] HealthcareStart: 2005 Pneumococcal Vaccine: 65+ Years (1 of 1 - PCV)Pneumococcal Vaccine: 65+ Years (1 of 1 - PCV)[facility] HealthcareStart: 1955Medicare Annual Wellness (AWV) Medicare Annual Wellness (AWV)[facility] HealthcareStart: 79-28-5793Wfhsudnjp for malignant neoplasm of colonNOCO HealthcareXR Foot - left GE 3 [facility] Immunizations Immunization DateImmunizationNotesCare ErtaffzcZkylhnzm71-18-3652zcwmpblbx virus vaccine, unspecified formulationShaun Sanchez MD Work Phone: [facility] CenterIgiurmhfxx44-96-2918FPMW-NzU-9 (COVID-19) mRNAMUL.ORD!g20158Egxpxtw NILL General Surgery Yixzgvcm69-17-6526SMBD-VtY-9 (COVID-19) mRNA BNT-162b2 vaxMichael NILL General Surgery Mjfbxdpr97-98-7501FMTA-UlK-3 (COVID-19) mRNA BNT-162b2 vaxMichael NILL General Surgery Mcsmxfxq37-16-9368TVRY-ArL-3 (COVID-19) mRNA BNT-162b2 vaxMichael NILL General Surgery [facility] Payers DatePayer CategoryPayerPolicy [id number] 2020MedicareMedicare MEDICAL MUTUAL MEDICARE MEDICAL MUTUAL MEDICARE [id number] 2020-Present [address] [id number] Medicare (Managed Care)[employer] MEDICARE Member Subscriber Plan / Payer (Effective 2020-Present) Name: Christelle Mohan Relation to Subscriber: Self Name: Christelle Mohan Payer ID: Not on file Type: Not on file Address: [address] [place] [id number] [id number] [id number] 2.840.1.900422.[id number] 2..0.1.406366.3.57[id number] 2..840.1.996301.3.57[id number] 2..840.1.585270.3.57[id number] 2.16.840.1.484157.3.57[id number] 2.16.840.1.670891.3.57[id number] 2.16.840.1.470015.3.57[id number] 2.16.840.1.012104.3.57[id number] 2.16.840.1.402722.3.57[id number] 2..840.1.060894.3.57[id number] 2..840.1.728706.3.57[id number] 2..840.1.462845.3.579.2.1259 Social History DateTypeDetailFacilityStart: 07-11-2023 End: 79-23-8756Wxtxcgu smoking statusNever smoked tobacco (finding)General Surgery BellevueTobacco smoking statusNeverGeneral Surgery BellevueStart: 06-30-2024 End: 41-30-4568Ems Assigned At BirthFeMercy Health West Hospitaltart: 16-19-5163Ezjtrxe use and exposureSmokeless tobacco non-userN[facility]S Healthcare Start: 06-30-2024 End: 14-08-3836Mmfrgxc of Social functionNOMS HealthcareDo you belong to any clubs or organizations such as sikhism groups, unions, fraternal or athletic morgan ups, or school groups?NoNOMS HealthcareAre you now , , , , never or living with a partner?MarriedNOMS HealthcareHow often to you have a drink containing alcohol?2-4 times a monthNOMS HealthcareHow many standard drinks containing alcohol do you have on a typical day?1 or 2NOMS HealthcareHow often do you have 6 or more drinks on 1 occasion?NeverNOMS HealthcareDo you feel stress - tense, restless, nervous, or anxious, or unable to sleep at night because yourmind is troubled all the time - these days [OSQ] Not at allNOMS Healthcare(I/We) worried whether (my/our) food would run out before (I/we) got money to buy more.Never trueNOCO HealthcareStart: 1955 Sex assigned at birthNot on [facility] CenterSexFemale (finding)[facility] Medical Centertart: 80-21-7786Fjh Assigned At [facility] Functional Status LbzwHybmdfzvnbQekygiObyumaut24-30-1441Iknncqfjpj StatusN/AGeneral Surgery [facility] Clinical Notes 07-11-2023 to 05-27-2025 Note Date & PvvyVszyYutneodp80-54-8178 Telephone encounter Note* Telephone Encounter - Yudi Holm - 05/27/2025 1:03 PM EDT Attempted 3x's w/ messages left to check on status (vertigo). Noted request to call back; from previous 2 left messages no reply. [facility] CenterEylobbvwal47-09-8728 Miscellaneous Notes* Telephone Encounter - Yudi Holm - 05/27/2025 1:03 PM EDT Attempted 3x's w/ messages left to check on status (vertigo). Noted request to call back; from previous 2 left messages no reply. documented in this encounterEllis Fischel Cancer CenterWyksbaoyxr21-46-9153 History of Present illness Narrative* Kapil Looney, PT - 05/05/2025 1:30 PM EDT Images from the original note were not included. Physical Therapy Evaluation Visit Patient Name: Christelle Mohan Today's Date: 05/05/2025 Encounter Diagnoses Name Primary? Vertigo Yes Visit number: 1 Timed Code Treatment Minutes: 35 minutes Total Treatment Time: 35 minutes Time In: 1330 Time Out: 1405 History: Pt states she has been dealing with vertigo for about 15 years. States was treated in therapy a long time ago with improvements noted. Was still cautious with some head movements. States 3 weeks ago, she was on vacation and experience room spinning while rolling over in bed. States sx's have improved since 3 weeks ago but states still does not feel right when rolling over in bed and bending forward. Precautions: [place] Subjective: denies any pain Pain: 0/10 Objective: PT Evaluation (05/05/2025) CERVICAL CROM: limited bilateral rotation Joint play: decrease mobility lower and mid cervical regions Palpation: min tenderness paraspinals and UT's Special Test: Modified VBI Testing: negative bilateral Hallpike: right negative; nystagmus and dizziness left Roll Test: not tested Neurological: Reflexes: not tested Myotomes: intact Dermatomes: intact Special test: not tested Treatment: Education: HEP education with demonstration, Educated on Eval Findings and POC Manual Therapy: Passive ROM, Joint mobilization, Soft Tissue Mobilization, Myofascial Release, Muscle Energy Technique, Neural Mobilization, Myofascial Cupping, Dry Needling, IASTM, and Scar mobilization as needed. Therapeutic Exercise: Strength, Endurance, Flexibility, ROM, HEP, Neural Mobilization, Power, and Core Stability as needed. Pt performed and instructed in home program this date; written instructionsand pictures issued with good pt understanding. Therapeutic Activity: Exercises to improve dynamic activities, functional tasks, functional mobility to return to prior activity level as needed. Neuromuscular re-education: Balance Training, Muscle Facilitation, Dynamic Stability, Core Stabilization, and Blood Flow Restriction Training (BFRT) as needed. Modalities: Heat, Ice, Electrical Stimulation, Ultrasound, Cervical Mechanical Traction, Lumbar Mechanical Traction, Iontophoresis, and Fluidotherapy as needed. Assessment: Pt is 69 y/o female with complaints of dizziness. Pt with increase dizziness and nystagmus noted with left Hallpike; however, pt was unable to tolerate repositioning. Discussed use of OTCmedication to help minimize sx's prior to next session; pt voiced good understanding. Will benefit from further PT. Outcome Measure: Dizziness Handicap Inventory (DHI): 8100 Rehab Diagnosis: dizziness, difficulty walking Short Term Goal: To be met in 2 weeks Goal 1: Pt to be instructed in home exercise program. Prison Goals: To be met in 10 weeks Goal 1: Pt to report independence and compliance with home program. Goal 2: Pt to present with negative BPPV testing. Goal 3: Pt to report decrease dizziness by 90% throughout the day. Goal 4: Pt to score no greater than 1/100 on DHI indicating improved QOL. Pt will benefit from skilled PT for 1-2x/week from 05/05/2025 to 07/28/2025 to address the above impairments. I hereby deem this POC medically necessary. Please sign below. Date: documented in this encounterEllis Fischel Cancer CenterPlfmxmkqqt57-12-8535 Telephone encounter Note* Telephone Encounter - Yudi Holm - 05/01/2025 9:36 AM EDT LM requesting a call back to check PT status re: Rx trial. Noted we can schedule quinten if needed. [facility] Cancer CenterJrovyhxenz98-71-6417 Miscellaneous Notes* Telephone Encounter - Yudi Holm - 05/01/2025 9:36 AM EDT LM requesting a call back to check PT status re: Rx trial. Noted we can schedule quinten if needed. * Telephone Encounter - Yudi Holm - 04/27/2025 11:04 AM EDT Contacted to offer scheduling for PT Zachariah, per vertigo, and she noted she was put on some medication to take prior start-up. She was informed it could be inner-ear and doctor wants her to try Rx 1st. I told her I would contact in a few days to check; she requested 05/01 for fu call. documented in this encounterEllis Fischel Cancer CenterJlnzhrlzeg84-31-9234 Telephone encounter Note* Telephone Encounter - Yudi Holm - 04/27/2025 11:04 AM EDT Contacted to offer scheduling for PT Eval, per vertigo, and she noted she was put on some medication to take prior start-up. She was informed it could be inner-ear and doctor wants her to try Rx 1st. I told her I would contact in a few days to check; she requested 05/01 for fu call. [facility] Cancer CenterUvmbbxfqbh99-52-3601 History of Present illness Narrative* Shaun Sanchez MD - 04/27/2025 8:48 AM EDTAssociated Problem(s): Vertigo Severe symptoms and fluid behind TM with ears plugged. Treat with antibiotics and steroids for possible middle ear infection. Use OTC meclizine PRN. If no improvement will need to start vestibular rehab. * Shaun Sanchez MD - 04/27/2025 8:46 AM EDTAssociated Problem(s): Ventricular ectopy No palpitations and continue metoprolol. * Shaun Sanchez MD - 04/27/2025 8:46 AM EDTAssociated Problem(s): Essential hypertension, benign BP controlled and monitor PRN. * Shaun Sanchez MD - 04/27/2025 8:00 AM EDT Images from the original note were not included. Subjective Patient ID: Christelle Mohan is a 69 y.o. female who presents for Follow-up (6m) and Dizziness. Follow up HTN and palpitations. C/o severe vertigo for past 2 weeks. Constant symptoms and often room spinning but other times unsteady and off balance. Symptoms triggered by movement and hard to turn head. Not able to lay flat and sleeping sitting up. Symptoms worse if bend over or turn head but okay to drive. History of vertigo in past and prior vestibular rehab. Tried home exercises but no change. Recent trip to [place] and ears plugged since. C/o sinus pressure and ears full. Mild postnasal drip. Not tried OTC. Checking BP PRN and typically controlled. BP normal today. Taking medication daily and tolerating without side effects. Palpitations stable. No palpitations or heart racing. Not lightheaded or dizzy. Review of Systems Respiratory: Negative for cough, shortness of breath and wheezing. Cardiovascular: Negative for chest pain and palpitations. Gastrointestinal: Negative for abdominal pain, diarrhea, nausea and vomiting. Genitourinary: Negative for dysuria. Objective Physical Exam Constitutional: General: She is not in acute distress. Appearance: Normal appearance. HENT: Head: Normocephalic. Ears: Comments: Bilateral TM clear but bulging with fluid Eyes: Extraocular Movements: Extraocular movements intact. Pupils: [...] Items Addressed This Visit Essential hypertension, benign - Primary BP controlled and monitor PRN. Ventricular ectopy No palpitations and continue metoprolol. Vertigo Relevant Orders Ambulatory referral to Physical Therapy Other Visit Diagnoses Labyrinthitis, unspecified laterality Relevant Medications predniSONE (Deltasone) 50 MG tablet levoFLOXacin (Levaquin) 750 MG tablet documented in this encounterEllis Fischel Cancer CenterCokksaqtfh11-18-8130 History of Present illness Narrative* Shaun Sanchez MD - 10/22/2024 9:12 AM ESTAssociated Problem(s): Medicare annual wellness visit, subsequent Reviewed labs. Discussed proper diet and regular aerobic exercise. Need aerobic exercise 5-6 days aweek for 30 minutes at a time. Smaller portions and limit total calories. Colonoscopy every 10 years. Tetanus every 10 years. Advised not to smoke. * Shaun Sanchez MD - 10/22/2024 8:00 AM EST Images from the original note were not [...] aerobic exercise. Need aerobic exercise 5-6 days aweek for 30 minutes at a time. Smaller portions and limit total calories. Colonoscopy every 10 years. Tetanus every 10 years. Advised not to smoke. documented in this encounterEllis Fischel Cancer CenterCkuvbewybk36-62-5102 History of Present illness Narrative* Shaun Sanchez MD - 07/07/2024 8:44 AM EDTAssociated Problem(s): Ventricular ectopy No palpitations and continue metoprolol. * Shaun Sanchez MD - 07/07/2024 8:44 AM EDTAssociated Problem(s): Essential hypertension, benign (CMS/HCC) BP controlled and monitor PRN. * Shaun Sanchez MD - 07/07/2024 8:44 AM EDTAssociated Problem(s): Allergic rhinitis due to pollen Symptoms controlled with medication and continue. * Shaun Sanchez MD - 07/07/2024 8:00 AM EDT Images from the original note were not included. Subjective Patient ID: Christelle Mohan is a 68 y.o. female who presents for Follow-up (6m). Follow up HTN, palpitations, and allergies. Patient doing well today. Checking BP PRN and typicallycontrolled. BP normal today. Taking medication daily and tolerating without side effects. Allergiescontrolled with medication. No congestion or rhinorrhea. No [...] 30-39.9) Relevant Orders TSH documented in this encounterEllis Fischel Cancer CenterWxqtlvsrow52-37-1945 NoteChief Complaint consultation for surveillance colonoscopy [facility] Staff 67 year old female presents on [...] complaints; last colonoscopy 2017 with diverticulosis; abd operationssignificant for YEHUDA; no asa or NSAID use; [...] swallowing difficulties, no hearing loss, no ear infection(s),no nose bleeds. Cardiovascular: normal blood pressure, no [...] Brother. Immunizations Vaccine Date Status SARS-CoV-2 (COVID-19) mRNAMUL.ORD![id number] 10/20/2022 Recorded SARS-CoV-2 (COVID-19) mRNA BNT-162b2 vax 09/06/2021 Recorded SARS-CoV-2 (COVID-19) mRNA BNT-162b2 vax 02/08/2021 Recorded SARS-CoV-2 (COVID-19) mRNA BNT-162b2 vax 01/17/2021 RecordedMarymount HospitalComment on above:Result Comment: Electronically Signed By: GERI STANTON, Job Camacho\Date and Time Signed: 07/11/23 14:51 EDTEvaluation + Plan note No data available for this section [facility] [place] Evaluation note* Diagnosis Essential hypertension, benign (CMS/HCC)- Primary Essential [...] visit, subsequent- Primary [facility]* Diagnosis Essential hypertension, benign (CMS/HCC)- Primary Essential hypertension, benign Ventricular ectopy Other premature beats Seasonal allergic rhinitis due to pollen Dyslipidemia (CMS/HCC) Other and unspecified hyperlipidemia Prediabetes Other abnormal glucose Encounter for long-term current use of medication Obesity (BMI 30-39.9) [facility]* Diagnosis Essential hypertension, benign- Primary Essential hypertension, benign Ventricular ectopy Other premature beats Seasonal allergic rhinitis due to pollen Essential hypertension, benign- Primary Essential hypertension, benign Ventricular ectopy Other premature beats Seasonal allergic rhinitis due to pollen Dyslipidemia Other and unspecified hyperlipidemia Prediabetes Other abnormal glucose Encounter for long-term current use of medication Obesity (BMI 30-39.9) Medicare annual wellness visit, subsequent- Primary Essential hypertension, benign- Primary Essential hypertension, benign Ventricular ectopy Other premature beats Vertigo Dizziness and giddiness Labyrinthitis, unspecified laterality [facility]* Diagnosis Essential hypertension, benign- Primary Essential hypertension, benign Ventricular ectopy Other premature beats Seasonal allergic rhinitis due to pollen Essential hypertension, benign- Primary Essential hypertension, benign Ventricular ectopy Other premature beats Seasonal allergic rhinitis due to pollen Dyslipidemia Other and unspecified hyperlipidemia Prediabetes Other abnormal glucose Encounter for long-term current use of medication Obesity (BMI 30-39.9) Medicare annual wellness visit, subsequent- Primary Essential hypertension, benign- Primary Essential hypertension, benign Ventricular ectopy Other premature beats Vertigo Dizziness and giddiness Labyrinthitis, unspecified laterality Vertigo- Primary Dizziness and giddiness documented in this encounter [facility]* Diagnosis Onset Date Resolution Status Admit Date Left foot pain acuteOctober 2024 1:44pm [facility] Work Phone: Hospital Discharge instructions No data available for this section [facility] [place] Progress note No data available for this section [facility] [place] Ren[facility] for referral (narrative)No reason for referral information availableMetrohealth [facility] Center Work Phone: Rezayd for visit Narrative* Rehabilitation - Outpatient (Routine) - AuthorizedSpecialtyDiagnoses / ProceduresReferred By ContactReferred To ContactPhysical Therapy Diagnoses Vertigo Procedures [place] OFFICE/OUTPATIENT [facility] 60 MINUTES Shaun Sanchez MD [address] [place] [address] Phone: tel: fax: Kapil Looney PT Referral IDStatusReasonStart DateExpiration DateVisits RequestedVisits [id number] Specialty Services Required [id number] [facility] Healthcare Summary Purpose Family History No Family History Records Found No data available for this section No Family History Records FoundNo Family History Records Found Advance Directives Advance Directive Response Recorded Date/ Time Advance Directives No July 9:28am Chief Complaint and Reason for Visit Chief Complaint Admit Date foot pain August 13, 2025 1: 44pm Reason for Visit Admit Date Left foot pain August 13, 2025 1: 44pm Additional Source Comments INFORMATION SOURCE (unrecogn ized section and content) DATE CREATED AUTHOR 11/22/2022 [facility] DATE CREATED AUTHOR AUTHOR'S ORGANIZ ATION 08/15/2023 [facility] DATE CREATED AUTHOR AUTHOR'S ORGANIZ ATION 05/06/2025 [facility] EPIC Patient Care team informatio n (unrecognized section and content) Team MemberRelationshipSpecialtyStart DateEnd Date Shaun Sanchez MD [address] [place] [address] PCP - GeneralFamily Medicine12/25/23 Shaun Sanchez MD [address] [place] [address] PCP - Medical [facility] [place]08/12/2012Team MemberRelationshipSpecialtyStart Date End Date Shaun Sanchez MD [address] [place] [address] [facility] - [facility]12/25/23 Shaun Sanchez MD [address] [place] [address] PCP - Medical [facility] [place]08/12/2012Team MemberRelationshipSpecialtyStart Date End Date Shaun Sanchez MD [address] [place] [address] PCP - Generalmi Medicine12/25/23 Shaun Sanchez MD [address] [place] [address] PCP - Medical [facility]08/12/2012Team MemberRelationshipSpecialtyStart Date End Date Shaun Sanchez MD [address] [place] [address] PCP - [facility]12/25/23 Shaun Sanchez MD [address] [place] [address] PCP - Medical [facility]08/12/2012Team MemberRelationshipSpecialtyStart Date End Date Shaun Sanchez MD [address] [place] [address] [facility] - [facility]12/25/23 Shaun Sanchez MD [address] [place] [address] PCP - Medical [facility]08/12/2012Team MemberRelationshipSpecialtyStart Date End Date Shaun Sanchez MD [address] [place] [address] [facility] - [facility]12/25/23 Shaun Sanchez MD [address] [place] [address] PCP - Medical [facility]08/12/2012Team MemberRelationshipSpecialtyStart Date End Date Shaun Sanchez MD [address] [place] [address] PCP - [facility]12/25/23 Shaun Sanchez MD [address] [place] [address] [facility] - Medical [facility]08/12/2012Team MemberRelationshipSpecialtyStart Date End Date Shaun Sanchez MD [address] [place] [address] [facility] - [facility]12/25/23 Shaun Sanchez MD [address] [place] [address] [facility] - [facility]08/12/2012Team MemberRelationshipSpecialtyStart Date End Date Shaun Sanchez MD [address] [place] [address] [facility] - [facility]12/25/23 Shaun Sanchez MD [address] [place] [address] [facility]08/12/2012Team MemberRelationshipSpecialtyStart Date End Date Shaun Sanchez MD [address] [place] [address] [facility]12/25/23 Shaun Sanchez MD [address] [place] [address] [facility] Medical [facility]08/12/2012 Team Status: Active Member Role Status Dates Shaun Sanchez MD Primary Care Provider Active Team Status: Active Member Role Status Dates Shaun Sanchez MD Attending Provider Active Star t: July 23, 2025 Team Status: Inactive Member Role Status Dates Shaun Sanchez MD Primary Care Provider Active S tart: August 13, 2025 End: August 13, 2025Shaun Sanchez MDAttending ProviderActiveStart: August 13, 2025 End: August 13, 2025 Reason for Visit (unrecogniz ed section and content) ReasonCommentsMedicare Annual Wellness Visit SubsequentwellnessReasonComments Sckogh-hy6vVyhhueFkdkwwclSobvlz-in3nVxqgevweqHrnrxwBccja DateCommentsPT for Kobmzou5404/27/2025all to fu on 05/01/25.FU to check tipxdn2105/01/2025Scheduled 05/05/2025PT 05/05/25 w/ Arden Looney PT.ReasonOnset DateCommentsPT Vertigo fu 05/12/2025fu05/21/20252910Fbxeu01/16/2025 Goals (unrecognized section and content) Goals may be documented in a n alternate section FOR RECORDS PERTAINING TO PATIENTS WHO ARE [...] BE BASED ON THE PRIMARY CLINICAL RECORDS. [employer] provides no warranty or guarantee of the accuracy or completeness of information in this document.
--- OUTSIDE RECORDS SUMMARY | 2025-09-03 09:29 | XMS_ITS | Clinical Summary ---
Author Organization [facility] Address [address] [place] [address] Care Team Providers Care Process Control Manager Name Role Phone Shaun Licona MD Primary Care Provider [phone] Shaun Licona MD Unavailable Allergies No known active allergies Medications MedicationSigDispense QuantityRefillsLast FilledStart DateEnd DateStatus cetirizine (ZyrTEC) 10 MG tablet Take 1 tablet by mouth in the morning.Active lisinopril-hydroCHLOROthiazide 20-25 MG tablet Indications:Essential hypertension, benignTAKE 1 TABLET BY MOUTH DAILY 90 tablet ctive atorvastatin (Lipitor) 20 MG tablet Indications:DyslipidemiaTAKE 1 TABLET BY MOUTH AT BEDTIME 90 tablet ctive metoprolol tartrate (Lopressor) 25 MG tablet Indications:Essential hypertension, benignTAKE 1 TABLET BY MOUTH TWICE DAILY 180 tablet ctive Active Problems ProblemNoted DateDiagnosed QrubYwivhuo83/16/2025 Assessment & Plan (04/27/2025 8:48 AM EDT): Severe symptoms and fluid behind TM with ears plugged. Treat with antibiotics and steroids for possible middle ear infection. Use OTC meclizine PRN. If no improvement will need to start vestibular rehab. Medicare annual wellness visit, oqlwvrlvod30/11/2024 Assessment & Plan (10/22/2024 9:12 AM EST): Reviewed labs. Discussed proper diet and regular aerobic exercise. Need aerobic exercise 5-6 days aweek for 30 minutes at a time. Smaller portions and limit total calories. Colonoscopy every 10 years. Tetanus every 10 years. Advised not to smoke. Abnormal mammogram of right xohqnc7808/20/2024Encounter for long-term current use of kujwhrxkib71/26/2024Class 1 obesity due to excess calories with serious comorbidity and body mass index (BMI) of 33.0 to 33.9 in adult07/07/2024 Essential hypertension, wmpctg6001/02/2024 Assessment & Plan (04/27/2025 8:46 AM EDT): BP controlled and monitor PRN. Assessment & Plan (07/07/2024 8:44 AM EDT): BP controlled and monitor PRN. Assessment & Plan (01/02/2024 1:40 PM EST): BP controlled and monitor PRN. Allergic rhinitis due to elwxwp7601/02/2024 Assessment & Plan (07/07/2024 8:44 AM EDT): Symptoms controlled with medication and continue. Assessment & Plan (01/02/2024 1:40 PM EST): Symptoms controlled with medication and continue. Ymctodbprbqb72/21/4746Vljswlkyzos84/21/2024Ventricular tpmjtp8901/02/2024 Assessment & Plan (04/27/2025 8:46 AM EDT): No palpitations and continue metoprolol. Assessment & Plan (07/07/2024 8:44 AM EDT): No palpitations and continue metoprolol. Assessment & Plan (01/02/2024 1:40 PM EST): No palpitations and continue metoprolol. Family History Medical HistoryRelationNameCommentsHypertensionFatherColon cancerMother HypertensionMotherRelationNameStatusCommentsFatherMother Social History Tobacco UseTypesPacks/DayYears UsedDateSmoking Tobacco: NeverSmokeless Tobacco: Never Tobacco Cessation:Counseling Given: Not Answered B1300 Health LiteracyAnswerDate RecordedHow often do you need to have someone help you when you read instructions, pamphlets, or other written material from your doctor or pharmacy?Never06/30/2024Social Connection and Isolation Panel AnswerDate RecordedIn a typical week, how many times do you talk on the phone with family, friends, or neighbors?Twice a week06/30/2024How often do you get together with friends or relatives?Twice a week06/30/2024How often do you attend sabianism or sikh services?More than 4 times per year06/30/2024o you belong to any clubs or organizations such as sabianism groups, unions, fraternal or athletic groups, or school groups?No06/30/2024How often do you attend meetings of the clubs or organizations you belong to?Never06/30/2024re you , , , , never , or living with a partner? 06/30/2024UDIT-CAnswerDate RecordedQ1: How often do you have a drink containing alcohol?2-4 times a month06/30/2024Q2: How many drinks containing alcohol do you have on a typical day when you are drinking?1 or Q3: How often do you have six or more drinks on one occasion?Never06/30/2024Overall Financial Resource Strain (CARDIA)AnswerDate RecordedHow hard is it for you to pay for the very basics like food, housing, medical care, and heating?Not hard at all 06/30/2024HQ-2AnswerDate RecordedPatient Health Questionnaire-2 Score0 10/22/2024Fin[facility] [place] [facility] Occupational Health - Occupational Stress QuestionnaireAnswerDate RecordedDo you feel stress - tense, restless, nervous, or anxious, or unable to sleep at night because yourmind is troubled all the time - these days?Not at all06/30/2024Exercise Vital SignAnswerDate RecordedOn average, how many days per week do you engage in moderate to strenuous exercise (like a brisk walk)?5 days06/30/2024On average, how many minutes do you engage in exercise at this level?30 min06/30/2024Hunger Vital SignAnswerDate Recorded Within the past 12 months, you worried that your food would run out before you got the money to buymore.Never true06/30/2024an Out of Food in the Last YearNot on file06/30/2024RAPARE - TransportationAnswerDate RecordedIn the past 12 months, has lack of transportation kept you from medical appointments or from getting medications?No06/30/2024In the past 12 months, has lack of transportation kept you from meetings, work, or from getting things needed for daily living?No06/30/2024Housing Stability Vital SignAnswerDate RecordedIn the last 12 months, was there a time when you were not able to pay the mortgage or rent on time?No06/30/2024Number of Times Moved in the Last YearNot on file 06/30/2024t any time in the past 12 months, were you homeless or living in a detention (including now)?No06/30/2024CommentsUnknownSex and Gender InformationValueDate RecordedSex Assigned at BirthNot on fileLegal SexFemale 06/25/2023 9:33 AM EDTGender IdentityNot on fileSexual OrientationNot on file Last Filed Vital Signs Vital SignReadingTime TakenCommentsBlood Duvlszwd777/8206 8:17 AM EDT Syybz424804/27/2025 8:17 AM GWTSfarojvtihq91.4 ??C (97.5 ??F)04/27/2025 8:17 AM EDTRespiratory Iwuo837604/27/2025 8:17 AM EDTOxygen Jiawxgmfzk07%04/27/2025 8:17 AM EDTInhaled Oxygen Concentration--Lknudm90.8 kg (187 lb)04/27/2025 8:17 AM EDT Ettgih730 cm (5' 3 )04/27/2025 8:17 AM EDTBody Mass Index33.1306 8:17 AM EDT Plan of Treatment Health MaintenanceDue DateLast DoneCommentsCT Dcfobapqnmdq1955FIT-DNA 1955FOBT1955 4990Pqmlrxwnkriop1955Pneumococcal Vaccine: 65+ Years (1 of 1 - PCV)2005FIT/11/2022Influenza Vaccine (#1)2025 08/14/20245928Bangywcnx48, 08/28/2024, 08/14/2023Medicare Annual Wellness (AWV)olonoscopy/olorectal Cancer Fdxnbwfyx73/20/2033 Procedures Procedure NamePriorityDate/TimeAssociated DiagnosisCommentsBI MAMMOGRAM DIAGNOSTIC TOMOSYNTHESIS JKRWNPOWGWzhsyae26/17/2024 11:52 AM EDTFECAL UZXOIGMMPZXQPLBwkacrp49/01/2023 from Last 3 Months or Most Recently Relevant to Health Maintenance Results * Bilateral diagnostic mammogram with tomosynthesis (08/28/2024 11:52 AM EDT) Anatomical RegionLateralityModalityBreastBilateralMammography Narrative Authorizing ProviderResult TypeResult StatusRanjana Dover NPG BI PROCEDURESFinal Result * Fecal immunochemical (06/12/2023)Specimen (Source)Anatomical Location / LateralityCollection Method / VolumeCollection TimeReceived TimeStoolRectal contents / Frdmwxy1606/12/2023 Narrative Christen Wilson MA - 06/12/2023 12:05 PM EDT Per [facility] home kit Authorizing ProviderResult TypeResult StatusShaun YUSUF BODY FLUIDS AND STOOLS ORDERABLESFinal Result from Last 3 Months or Most Recently Relevant to Health Maintenance Insurance Care Teams Team MemberRelationshipSpecialtyStart DateEnd Date Shaun Licona MD [facility] - [facility] Shaun Licona MD [address] [place] [address] PCP - Medical [facility]08/12/2012
--- OUTSIDE RECORDS SUMMARY | 2025-09-03 09:29 | XMS_ITS | Clinical Summary ---
Author Organization [facility] tem Address [id number] [address] [place] [address] Care Team Providers Care Counseling Department Chair Name Role Phone Shaun Licona MD Primary Care Provider [phone] Allergies No known active allergies Medications MedicationSigDispense QuantityRefillsLast FilledStart DateEnd DateStatus lisinopril-hydroCHLOROthiazide (PRINZIDE,ZESTORETIC) 20-25 mg per tablet Take 1 tablet by mouth daily.Active atorvastatin (LIPITOR) 20 mg tablet Take 20 mg by mouth daily.Active Active Problems ProblemNoted DateDiagnosed RmjcMiuixyx64/07/2018 Family History Medical HistoryRelationNameCommentsColon cancerBrotherColon cancerMotherRelation NameStatusCommentsBrotherAliveFatherDeceasedMotherDeceased Social History Tobacco UseTypesPacks/DayYears UsedDateSmoking Tobacco: NeverSmokeless Tobacco: NeverAlcohol UseStandard Drinks/WeekCommentsYes0 (1 standard drink = 0.6 oz pure alcohol)ChildcareAnswerDate OhcanxgvRcnzqvybvPbywmev00/12/2019EmploymentAnswer Date MczyrnduWlgqdcwotsLmepkvs98/12/2019Purpose - LifeAnswerDate RecordedPurpose and direction in gnbmChzypdl86/11/2021CommentsUnknownSex and Gender InformationValueDate RecordedSex Assigned at BirthNot on fileLegal SexFemale 06/17/2015 11:24 AM EDTGender IdentityNot on fileSexual OrientationNot on file Last Filed Vital Signs Vital SignReadingTime TakenCommentsBlood Jrxhtsmg785/8408 2:41 PM EDT Pulse--Temperature--Respiratory Rate--Oxygen Saturation--Inhaled Oxygen Concentration--Bptwlg42.6 kg (180 lb)07/03/2018 2:41 PM NWGOgvrqq292 cm (5' 3 ) 07/03/2018 2:41 PM EDTBody Mass Index31.8907/03/2018 2:41 PM EDT Plan of Treatment Health MaintenanceDue DateLast DoneCommentsDepression Jfbtqicmh95/31/1967Tobacco Ylufxwjeg67/31/1967Adult BMI Plmqtjhwa25/31/1973DTaP,Tdap and Td Vaccines (1 - Tdap)1974Zoster (Shingles) Vaccine (1 of 2)2005Fall Risk Screening 07/12/20208491Mysgnaplvwl33Influenza Cafirnz1207/13/2025 Medical Devices Not on file Procedures Procedure NamePriorityDate/TimeAssociated DiagnosisCommentsCOLONOSCOPYRoutine 06/26/2018 12:00 PM EDTfrom Last 3 Months or Most Recently Relevant to Health Maintenance Insurance Care Teams Team MemberRelationshipSpecialtyStart DateEnd Date Shaun Licona MD PCP - GeneralFamily Medicine04/03/18
--- NOTE | 2025-09-03 09:35 | MM_ITS ---
Patient Name: MELLO KITCHEN MR#: [id number] : 1955 Exam Date: 09/03/2025 Ordering Doctor: DR PRISCILLA SANCHEZ . RADIOLOGY REPORT PROCEDURE: MM TOMOSYNTHESIS SCREENING BI COMPARISON: MM TOMOSYNTHESIS DIAGNOSTIC BI, 08/28/2024. MM TOMOSYNTHESIS DIAGNOSTIC RT, 03/05/2024. MM DIAGNOSTIC MAMMO UNILAT RT, 08/22/2023. MM TOMOSYNTHESIS SCREENING BI, 08/03/2023. INDICATIONS: screening Calculator Name NCI Breast Cancer Risk Assessment Tool 5 Year Breast Cancer Risk 2.30% Lifetime Breast Cancer Risk 6.70% Personal Breast Cancer No Personal Ovarian Cancer No Treatments None Family Cancers Mother with colon cancer at age 60; Father with colon cancer at age 65. LOCATION: [facility] BREAST COMPOSITION: The breasts are heterogeneously dense, which may obscure small masses. FINDINGS: DIAGNOSTIC CATEGORY 0--INCOMPLETE: NEED ADDITIONAL IMAGING EVALUATION. RIGHT BREAST: MASS (finding with convex borders visible on two orthogonal views), characterized by mid-breast depth, benign circumscribed morphology, LEFT BREAST: No significant suspicious finding. RECOMMENDATIONS: ULTRASOUND: RIGHT BREAST Dictated by: Mason Stanton DO on 09/03/2025 at 12:06 Approved by: Mason Stanton DO on 09/03/2025 at 12:13
== END 2025-09-03 09:26 | disposition home or self-care (01) ==
LOC: MAMMO 09:25
PROVIDERS: PCP Family Medicine; Visit Provider Family Medicine
DX: Z12.31 Encounter for screening mammogram for malignant neoplasm of breast (principal); Z80.0 Family history of malignant neoplasm of digestive organs
CPT/HCPCS: 77063; 77067

== ENCOUNTER 2025-10-06 10:12 | Outpatient (OUT) | payer MEDICARE, SELFPAY ==
--- NOTE | 2025-10-06 | US_ITS ---
Patient Name: MELLO KITCHEN MR#: [id number] : 1955 Exam Date: 10/06/2025 Ordering Doctor: DR PRISCILLA SANCHEZ . RADIOLOGY REPORT PROCEDURE: US BREAST RT LIMITED COMPARISON: US BREAST RT LIMITED, 08/28/2024. Mammogram September 03, 2025 as well as others INDICATIONS: Abnormal Mammogram Of Right Breast TECHNIQUE: Breast ultrasound was performed, with evaluation focusing only on specific areas of concern. FINDINGS: At the 12 o'clock position of the right breast approximately 4 cm from nipple, a simple appearing cyst is once again demonstrated measuring 13 x 12 x 10 mm striatum this is grossly unchanged compared to the prior ultrasound study of August 28, 2024. DIAGNOSTIC CATEGORY 2--BENIGN FINDING: RECOMMENDATIONS: ROUTINE MAMMOGRAM AND CLINICAL EVALUATION IN 12 MONTHS. PLEASE NOTE: A NORMAL ULTRASOUND EXAMINATION DOES NOT EXCLUDE THE POSSIBILITY OF BREAST CANCER. A CLINICALLY SUSPICIOUS PALPABLE LUMP SHOULD BE BIOPSIED. Dictated by: Torres Eddy DO on 10/06/2025 at 10:53 Approved by: Torres Eddy DO on 10/06/2025 at 10:57
--- OUTSIDE RECORDS SUMMARY | 2025-10-06 10:17 | XMS_ITS | CCD ---
Author Organization [facility] Care Team Providers Care Combiner Operator Name Role Phone DANIEL, DR SHAUN Mayen Admitting Unavailable NADERER, DR SHAUN Mayen Attending Unavailable NADERER, DR SHAUN Mayen Primary Care Unavailable ZIEBER, DR OSMNA Pulliam Consulting Unavailable NADERER, DR SHAUN Mayen [...] Consulting Unavailable NADEREHeraclio, SHAUN Primary Care Physician [phone] GERI, Job Pulliam Attending Unavailable NILL, Job Pulliam Attending Unavailable NADEREHeraclio, SHAUN Referring Unavailable NILL, Job Pulliam Attending Unavailable NILL, Job Pulliam Attending Unavailable NILL, Job Pulliam Attending Unavailable NadereShaun pulliam MD Primary Care Provider Shaun Sanchez MD Unavailable SHAUN SANCHEZ Attending Unavailable KAPIL LOONEY Attending Unavailable NADERER, SHAUN Referring Unavailable NADEREHeraclio, SHAUN Attending Unavailable NADEREHeraclio, SHAUN Attending Unavailable Shaun Sanchez MD Attending Provider Shaun Sanchez MD Primary Care Provider [phone] Shaun Sanchez MD Primary Care Provider [phone] Shaun Sancehz MD Unavailable Allergies Allergy ClassificationReported Allergen(s)Allergy TypeDate of OnsetReaction(s) Facility (1 source)No Known Medication Allergies; Translations: [No Known Medication Allergies]Propensity to adverse reactions (disorder)[facility] Repository Medications Current Medications MedicationDrug Class(es)DatesSig (Normalized)Sig (Original)atorvastatin 20 mg oral tablet (20 sources)HMG-CoA Reductase InhibitorStart: 07-21-2024 End: 13-01-2480rhhy 1 tablet by mouth once dailyAtorvastatin 20 mg tablet Active 20 MG PO Daily July 23, 2025 1:09pm Complies with drug therapyStart: 44-18-2365ilnj 1 tablet by mouth at bedtimeatorvastatin (Lipitor) 20 MG tablet Take 1 tablet by mouth at bedtime 10/25/2023 ActiveStart: 01-50-5987xgub 1 tablet by mouth once dailyLipitor 20 mg Tab 20 mg = 1 tab(s), Oral, Daily, Refills(s) 0 Start Date: 07/06/23 Status: OrderedhydroCHLOROthiazide 25 mg / lisinopril 20 mg oral tablet (20 sources)Thiazide Diuretic, Angiotensin Converting Enzyme InhibitorStart: 07-21-2024 End: 44-42-8330epvq 1 tablet by mouth once dailyLisinopril-Hydrochlorothiazide 20-25 mg tablet Active 1 TAB PO Daily July 23, 2025 1:09pmComplies with drug therapyStart: 85-20-8407aipg 1 tablet by mouth in the morning lisinopril-hydroCHLOROthiazide 20-25 MG tablet Take 1 tablet by mouth in the morning. 10/25/2023 ActiveStart: 32-30-1409zsxh 1 tablet by mouth once daily Zestoretic 25 mg-20 mg Tab 1 tab(s), Oral, Daily, Refill(s) 0 Start Date: 07/06/23 Status: OrderedlevoFLOXacin 750 mg oral tablet (2 sources)Quinolone AntimicrobialStart: 04-27-2025 End: 49-05-0681myzk 1 tablet by mouth once dailylevoFLOXacin (Levaquin) 750 MG tablet Indications: Labyrinthitis, unspecified laterality Take 1 tablet (750 mg) by mouth Daily for 7 days 7 tablet 04/27/2025 05/04/2025 Activemetoprolol tartrate 25 mg oral tablet (19 sources)beta-Adrenergic BlockerStart: 72-32-2457vzhn 1 tablet by mouth twice dailyMetoprolol Tartrate 25 mg tablet Active 25 MG PO Twice daily July 30, 2025 12:00am Complies with drug therapyStart: 42-31-2565wugz 1 tablet by mouth in the morningmetoprolol tartrate (Lopressor) 25 MG tablet Take 1 tablet by mouth in the morning and 1 tablet before bedtime. 11/24/2023 ActiveStart: 68-62-4867laoy 1 tablet by mouth twice dailyMetoprolol tartrate 25 mg Tab 25 mg = 1 tab(s), Oral, BID, Refills(s) 0 Start Date: 07/06/23 Status:OrderedpredniSONE 50 mg oral tablet (2 sources)Start: 04-27-2025 End: 16-31-2412lqnz 1 tablet by mouth once dailypredniSONE (Deltasone) 50 MG tablet Indications: Labyrinthitis, unspecified laterality Take 1 tablet (50 mg) by mouth Daily for 6 days 6 tablet 04/27/2025 05/03/2025 Active Completed/Discontinued Medications MedicationDrug Class(es)DatesSig (Normalized)Sig (Original)cetirizine hydrochloride 10 mg oral tablet (19 sources)Histamine-1 Receptor AntagonistStart: 07-30-2025 End: 07-95-3351kntk 1 tablet by mouth once daily as neededCetirizine (All Day Allergy (Cetirizine)) 10 mg tablet Discontinued 10 MG PO Daily as needed 2024 12:00am August 13, 2025 1:52pm Problems Active Problems Problem ClassificationProblemDateDocumented DateEpisodic/ChronicCardiac dysrhythmias (20 sources)Ventricular premature depolarization; Translations: [Ventricular arrhythmia]Onset: 951720-92-3081UwjfgqpWzcvmxgpt of lipid metabolism (20 sources)Hyperlipidemia, unspecified; Translations: [Dyslipidemia]Onset: 79-76-1311TltlgnzRuamaylpyechpc and diverticulitis (2 sources)Diverticula of intestine; Translations: [Diverticulosis of large intestine without perforation or abscess without bleeding]Onset: 08-14-2023 ChronicEssential hypertension (20 sources)Essential (primary) hypertension; Translations: [Hypertensive disorder]Onset: 504236-52-9187BbbgqgxRfxbe valve disorders (1 source)Rheumatic tricuspid insufficiency; Translations: [RHEUMATIC TRICUSPID INSUFFICIENCY]Onset: 68-29-9171EuanslcBkrmw and unspecified benign neoplasm (2 sources)Benign neoplasm of sigmoid colon; Translations: [Benign neoplasm of sigmoid colon]Onset: 81-64-9255OubxdzubFgooy connective tissue disease (2 sources)Pain in left foot; Translations: [Pain in left foot]08-13-2025 EpisodicOther nutritional; endocrine; and metabolic disorders (9 sources)Body mass index 30+ - obesity; Translations: [Obesity, unspecified] Onset: 382525-33-7143AwvifmyZypig nutritional; endocrine; and metabolic disorders (11 sources)Obesity caused by energy imbalance; Translations: [Class 1 obesity due to excess calories with serious comorbidity and body mass index (BMI) of 33.0 to 33.9 in adult]Onset: 505256-50-0300EkwiobxIpeei nutritional; endocrine; and metabolic disorders (2 sources)Jnbteotfqh70-71-2972OakvbrztAnwqu nutritional; endocrine; and metabolic disorders (2 sources)Overweight in adulthood with body mass index of 25 or more but less than 1117-45-3773PbffeojaLhtvq upper respiratory disease (2 sources)Seasonal mbwboss47-07-3706DujjxfnIxkoi upper respiratory disease (20 sources)Allergic rhinitis due to pollen; Translations: [Allergic rhinitis due to pollen]Onset: 409752-10-9608AhaifiaZdzmdnid codes; unclassified (2 sources)Family history of polyp of -63-0431JzequyfrVxwgcmqj codes; unclassified (1 source)Family history of malignant neoplasm of digestive organ; Translations: [Family history of malignantneoplasm of digestive organs]Onset: 08-14-2023 EpisodicResidual codes; unclassified (1 source)Family history of cancer of wonxh20-85-5018EuvhnhrbZteqwfsdxbyh (4 sources)Patient encounter jyrlid09-62-4926 Past or Other Problems Problem ClassificationProblemDateDocumented DateEpisodic/ChronicCardiac dysrhythmias (4 sources)Palpitations; Translations: [PALPITATIONS]Onset: 91-44-3169Jtywdlki Conditions associated with dizziness or vertigo (18 sources)Vertigo; Translations: [Dizziness and giddiness]Onset: 04-27-2025 13-54-6213DcsmjgpqEdmcelcb mellitus without complication (20 sources)Prediabetes; Translations: [Prediabetes]Onset: EpisodicMood disorders (9 sources)Mood disordersOnset: Other aftercare (1 source)Other salvage determiner (current) drug therapy; Translations: [OTH RETIREMENT CURRENT DRUG THERAPY]Onset: 37-60-9762UciimqtcBcpjm aftercare (14 sources)Long-term current use of drug therapy; Translations: [Other chcf (current) drug therapy]Onset: 056267-91-9943MxkkelclWxilp aftercare (5 sources)Patient encounter status; Translations: [Other chcf (current) drug therapy]Onset: 244973-27-4141LypvfyymZkqwx lower respiratory disease (4 sources)Shortness of breath; Translations: [SHORTNESS OF BREATH]Onset: 90-52-8589VpwuoltwHwycv nutritional; endocrine; and metabolic disorders (1 source)Overweight; Translations: [OVERWEIGHT]Onset: 89-38-7338YujgtcgxUcclm screening for suspected conditions (not mental disorders or infectious disease) (17 sources)Encounter for screening mammogram for malignant neoplasm of breast; Translations: [Screening for malignant neoplasm of colon done]Onset: 08-01-2022 EpisodicResidual codes; unclassified (1 source)Family history of malignant neoplasm of digestive organs; Translations: [FAM HX MALIG NEOPLASM DIGESTIV ORGN]Onset: 45-33-0725Hvsrvuoo Results Test NameValueInterpretationReference RangeFacilityMM TOMOSYNTHESIS DIAGNOSTIC BIon 24-95-0129HsrSan [place] [address] Mammography Report Signed Patient: CHRISTELLE MOHAN MR#: [id number] : 1955 Acct:[id number] Age/Sex: 69 / F ADM Date: 08/28/24 Loc: MAMMO Attending Dr: Shaun Sanchez M.D. Ordering Physician: Shaun Sanchez M.D. Results: Date of Service: 08/28/24 Follow Up: Procedure(s): MM tomosynthesis diagnostic BI Accession Number(s): [id number] cc: Shaun Sanchez M.D. Patient Name: CHRISTELLE MOHAN MR#: [id number] : 1955 Exam Date: 08/28/2024 Ordering Doctor: DR Shaun Sanchez . RADIOLOGY REPORT PROCEDURE: MM TOMOSYNTHESIS DIAGNOSTIC [...] colon cancer at age 65. LOCATION: The [facility] BREAST COMPOSITION: The breasts are heterogeneously [...] Signed By: 08/28/24 1137 DD/ 1136 TD/TT: Record Press Supervisor:TBHRadiology, RadiologistMD - 08/28/[address] [address] Mammography Report Signed Patient: CHRISTELLE MOHAN MR#: [id number] : 1955 Acct:[id number] Age/Sex: 69 / F ADM Date: 08/28/24 Loc: MAMMO Attending Dr: Shaun Sanchez M.D. Ordering Physician: Shaun Sanchez M.D. Results: Date of Service: 08/28/24 Follow Up: Procedure(s): MM tomosynthesis diagnostic BI Accession Number(s): [id number] cc: Shaun Sanchez M.D. Patient Name: CHRISTELLE MOHAN MR#: [id number] : 1955 Exam Date: 08/28/2024 Ordering Doctor: DR Shaun Sanchez . RADIOLOGY REPORT PROCEDURE: MM TOMOSYNTHESIS DIAGNOSTIC [...] colon cancer at age 65. LOCATION: [facility] BREAST COMPOSITION: The breasts are heterogeneously [...] Signed By: 08/28/24 1137 DD/ 1136 TD/TT: Record Press Supervisor: EBEN BaldwinNo Panel InformationOrdered By: Radiologist Radiology on 62-25-4209YFGJ BiOWiSH Work Phone: No Panel Informationon 89-09-2567Defklcyig Study observation (narrative)EBEN BiOWiSHUS Breast - right limitedon 61-68-7247TxkSan [place] [address] Ultrasound Report Signed Patient: CHRISTELLE MOHAN MR#: [id number] : 1955 Acct:[id number] Age/Sex: 69 / F ADM Date: 08/28/24 Loc: MAMMO Attending Dr: Shaun Sanchez M.D. Ordering Physician: Shaun Sanchez M.D. Date of Service: 08/28/24 Procedure(s): US breast RT limited Accession Number(s): [id number] cc: Shaun Sanchez M.D. Patient Name: CHRISTELLE MOHAN MR#: [id number] : 1955 Exam Date: 08/28/2024 Ordering Doctor: DR Shaun Sanchez . RADIOLOGY REPORT PROCEDURE: MM TOMOSYNTHESIS DIAGNOSTIC [...] colon cancer at age 65. LOCATION: [facility] BREAST COMPOSITION: The breasts are heterogeneously [...] Signed By: 08/28/24 1137 DD/ 1136 TD/TT: Record Press Supervisor:TBHRadiology, Radiologist, - 08/28/2024 [place] [address] Ultrasound Report Signed Patient: CHRISTELLE MOHAN MR#: [id number] : 1955 Acct:[id number] Age/Sex: 69 / F ADM Date: 08/28/24 Loc: MAMMO Attending Dr: Shaun Sanchez M.D. Ordering Physician: Shaun Sanchez M.D. Date of Service: 08/28/24 Procedure(s): US breast RT limited Accession Number(s): [id number] cc: Shaun Sanchez M.D. Patient Name: CHRISTELLE MOHAN MR#: [id number] : 1955 Exam Date: 08/28/2024 Ordering Doctor: DR Shaun Carpenter RADIOLOGY REPORT PROCEDURE: MM TOMOSYNTHESIS DIAGNOSTIC BI, [...] colon cancer at age 65. LOCATION: [facility] BREAST COMPOSITION: The breasts are heterogeneously [...] Signed By: 08/28/24 1137 DD/ 1136 TD/TT: Record Press Supervisor: EBEN BaldwinALL CBC WITH AUTO DIFFon 49-18-7340YKQEADPKK ABSOLUTE AUTO0.0NOMS HealthcareBasophils/100 WBC (Bld)0.2 %0.2 - 2.0 %NOMS HealthcareEosinophils/100 WBC (Bld)1.9 %0.9 - 7.0 %NOMS HealthcareErythrocyte distribution width (RBC) [Ratio]12.5 %11.0 - 15.0 %[facility]OMS HealthcareHematocrit (Bld) [Volume fraction]38.8 %36.0 - 48.0 %[facility] HealthcareHemoglobin (Bld) [Mass/Vol]13.0 g/dL12.0 - 16.0 g/dLCarondelet HealthIMMATURE GRANULOCYTES ABS AUTO0.01NOIL HealthcareImmature granulocytes/100 WBC (Bld)0.2 %0.0 - 0.5 %[facility] HealthcareInterpretation and review of laboratory resultsAbnormalNOTwo Rivers Psychiatric HospitalLYMPHOCYTES ABSOLUTE AUTO1.5 Carondelet HealthLymphocytes/100 WBC (Bld)23.7 %20.5 - 60.0 %[facility]woodH (RBC) [Entitic mass]31.3 pg26.7 - 34.0 pgSaint Joseph Hospital of KirkwoodHC (RBC) [Mass/Vol] 33.5 g/dL29.9 - 35.2 g/dLSaint Joseph Hospital of KirkwoodV (RBC) [Entitic vol]93.5 fL81.0 - 99.0 fLCarondelet HealthMONOCYTES ABSOLUTE AUTO0.5NOIL HealthcareMonocytes/100 WBC (Bld)7.3 %1.7 - 12.0 %[facility] HealthNEUTROPHILS ABSOLUTE AUTO4.2[facility] Neutrophils/100 WBC (Bld)66.7 %43.0 - 75.0 %[facility] HealthPlatelet mean volume (Bld) [Entitic vol]10.4 fL9.5 - 13.5 fLCarondelet HealthTBH EO #0.1[facility] TBH AGH833UQRD [facility] RBC4.15LowNOMS [facility] CenterTB WBC6.3[facility] CLINISYNCNOIL HealthcareMM TOMOSYNTHESIS DIAGNOSTIC RTon 12-90-0929DvpSan [place] [address] Mammography Report Signed Patient: CHRISTELLE MOHAN MR#: [id number] : 1955 Acct:[id number] Age/Sex: 68 / F ADM Date: 03/05/24 Loc: MAMMO Attending Dr: Shaun Sanchez M.D. Ordering Physician: Shaun Sanchez M.D. Results: Date of Service: 03/05/24 Follow Up: Procedure(s): MM tomosynthesis diagnostic RT Accession Number(s): [id number] cc: Shaun Sanchez M.D. Patient Name: CHRISTELLE MOHAN MR#: [id number] : 1955 Exam Date: 03/05/2024 Ordering Doctor: DR Shaun Sanchez . RADIOLOGY REPORT PROCEDURE: MM TOMOSYNTHESIS DIAGNOSTIC [...] colon cancer at age 65. LOCATION: The [facility] BREAST COMPOSITION: The breasts are heterogeneously [...] M.D. Signed By: 03/05/24833 DD/ 2 TD/TT: Record Press Supervisor:TBHRadiology, Radiologist, - 03/05/2024 [place] [address] Mammography Report Signed Patient: CHRISTELLE MOHAN MR#: [id number] : 1955 Acct:[id number] Age/Sex: 68 / F ADM Date: 03/05/24 Loc: MAMMO Attending Dr: Shaun Sanchez M.D. Ordering Physician: Shaun Sanchez M.D. Results: Date of Service: 03/05/24 Follow Up: Procedure(s): MM tomosynthesis diagnostic RT Accession Number(s): [id number] cc: Shaun Sanchez M.D. Patient Name: CHRISTELLE MOHAN MR#: [id number] : 1955 Exam Date: 03/05/2024 Ordering Doctor: DR Shaun Sanchez . RADIOLOGY REPORT PROCEDURE: MM TOMOSYNTHESIS DIAGNOSTIC [...] colon cancer at age 65. LOCATION: The [facility] BREAST COMPOSITION: The breasts are heterogeneously [...] PALPABLE LUMP SHOULD BE BIOPSIED. Dictated by: Osamn Javed M.D. on 03/05/2024 at 08:22 Approved by: Osman Javed M.D. on 03/05/2024 at 08:33 Dictated By: Osman Javed M.D. Signed By: 03/05/24 0834 DD/ TD/TT: Record Press Supervisor: EBEN Baldwin TOMOSYNTHESIS DIAGNOSTIC RTOrdered By: Radiologist Radiology on 78-23-3496TVDO BiOWiSH Work Phone: No Panel Informationon 43-63-4477Qwujjnbcf Study observation (narrative)EBEN Baldwin Breast - right limitedon 67-29-7335[place]oySan [place] [address] Ultrasound Report Signed Patient: CHRISTELLE MOHAN MR#: [id number] : 1955 Acct:[id number] Age/Sex: 68 / F ADM Date: 03/05/24 Loc: MAMMO Attending Dr: Shaun Sanchez M.D. Ordering Physician: Shaun Sanchez M.D. Date of Service: 03/05/24 Procedure(s): US breast RT limited Accession Number(s): [id number] cc: Shaun Sanchez M.D. Patient Name: CHRISTELLE MOHAN MR#: [id number] : 1955 Exam Date: 03/05/2024 Ordering Doctor: DR Shaun Sanchez . RADIOLOGY REPORT PROCEDURE: MM TOMOSYNTHESIS DIAGNOSTIC [...] colon cancer at age 65. LOCATION: The [facility] BREAST COMPOSITION: The breasts are heterogeneously [...] Dictated By: Osman Javed M.D. Signed By: 03/05/2435 DD/ TD/TT: Record Press Supervisor:TBHRadiology, Radiologist, - 03/05/[address] [address] Ultrasound Report Signed Patient: CHRISTELLE MOHAN MR#: [id number] : 1955 Acct:[id number] Age/Sex: 68 / F ADM Date: 03/05/24 Loc: MAMMO Attending Dr: Shaun Sanchez M.D. Ordering Physician: Shaun Sanchez M.D. Date of Service: 03/05/24 Procedure(s): US breast RT limited Accession Number(s): [id number] cc: Shaun Sanchez M.D. Patient Name: CHRISTELLE MOHAN MR#: [id number] : 1955 Exam Date: 03/05/2024 Ordering Doctor: DR Shaun Sanchez . RADIOLOGY REPORT PROCEDURE: MM TOMOSYNTHESIS DIAGNOSTIC [...] colon cancer at age 65. LOCATION: The [facility] BREAST COMPOSITION: The breasts are heterogeneously [...] Dictated By: Osman Javed M.D. Signed By: 03/05/2435 DD/ TD/TT: Record Press Supervisor: MTM LaboratoriesJet BiOWiSHUS Breast - right limitedOrdered By: Radiologist Radiology on 58-21-5932BXJP Healthcare Work Phone: ambulatory Visit Summaryon 44-42-6391Chakwtcsom Visit Summary CHRISTELLE MOHAN :1955 Visit Date:08/14/2023 Ambulatory Visit Instructions Your Care Team Attending Physician - Job NEAVREZ MD Primary Care Physician - SHAUN SANCHEZ MD [...] neoplasm of colon Seasonal allergies Ventricular ectopy [facility] Surgery Office/Clinic Noteon 23-23-1436Jquutda Surgery Office/Clinic NoteChief Complaint post operative follow [...] Brother. Immunizations Vaccine Date Status SARS-CoV-2 (COVID-19) mRNAMUL.ORD![id number] 10/20/2022 Recorded SARS-CoV-2 (COVID-19) mRNA BNT-162b2 vax 09/06/2021 Recorded SARS-CoV-2 (COVID-19) mRNA BNT-162b2 vax 02/08/2021 Recorded SARS-CoV-2 (COVID-19) mRNA BNT-162b2 vax 01/17/2021 RecordedProMedica Defiance Regional HospitalComment on above:Result Comment: Electronically Signed By: GERI STANTON, Job Camacho\Date and Time Signed: 08/14/23 13:51 EDTReminderson 08-14-2023 Reminders From: Mayra Vivar LPN To: N - Clinical; Sent: 08/14/2023 13:31:54 EDT Show up: 07/01/2028 07:00:00 EDT Subject: colonoscopy recall Due Date/Time: 08/01/2028 07:00:00 EDT Reminder/Recall Patient due for surveillance colonoscopy 08/01/2028.[facility] HospitalOutside Colonoscopyon 55-45-2483Qizgkns Colonoscopy [id number]#1.00CD:127[facility] HospitalConsent for Procedure/Surgeryon 61-79-4517Qegygaj for Procedure/Surgery [id number]#1.00CD:127[facility] HospitalFormson [id number]#1.00CD:127 [facility] HospitalAmbulatory Visit Summaryon 86-30-7915Bplcgfmtta Visit Summary CHRISTELLE MOHAN :1955 Visit Date:07/11/2023 [...] for colorectal cancer Seasonal allergies Ventricular ectopy NormalCleveland Clinic Union HospitalPhysician Referralon 06-21-2023 Physician [id number]#1.00CD:127Normal [facility] HospitalCBC AUTO DIFFon 39-84-1113FAPW #0.0 103/ulNormal 0.0-0.1The [facility] HospitalComment on above:Performed By: #### CBC #### [facility] [address] [place] [address] Dr. Job CerdaBasophils/100 WBC (Bld)0.3 %Normal0.2-2.0[facility] Comment on above:Performed By: #### CBC #### [facility] [address] [address] [address] Job Montemayor #0.2 103/ulNormal0.0-0.7The [facility] HospitalComment on above: Performed By: #### CBC #### [facility] [address] [address] [address] Job Urenaosinophils/100 WBC (Bld)2.4 %Normal0.9-7.0[facility] Comment on above:Performed By: #### CBC #### [facility] [address] [address] [address] Job Urenarythrocyte distribution width (RBC) [Ratio]13.6 %Twneou12.0-15.0 [facility] HospitalComment on above:Performed By: #### CBC #### [facility] [address] [place] [address] Dr. Job CerdaHematocrit (Bld) [Volume fraction]40.1 %Ybhckx10.0-48.0[facility] HospitalComment on above:Performed By: #### CBC #### [facility] [address] [address] [address] Job CerdaHemoglobin (Bld) [Mass/Vol]13.5 g/gXRzqfoy67.0-16.0The [facility] HospitalComment on above:Performed By: #### CBC #### [facility] [address] [place] [address] Dr. Job Blandon #0.02 10e3/ulNormal0.00-0.03The [facility] HospitalComment on above:Performed By: #### CBC #### [facility] [address] [place] [address] Dr. Job Blandon %0.3 %Normal0.0-0.5The [facility] HospitalComformerly [facility] on above: Performed By: #### CBC #### [facility] [address] [place] [address] Dr. Job Grant #2.4 103/ulNormal1.2-3.8The [facility] HospitalComment on above:Performed By: #### CBC #### [facility] [address] [place] [address] Dr. Job Razahocytes/100 WBC (Bld)35.7 %Eyriuh64.5-60.0The [facility] HospitalComment on above:Performed By: #### CBC #### [facility] [address] [place] [address] Dr. Job VizcainoUAL DIFF REQNONormalThe [facility] HospitalComment on above: Performed By: #### CBC #### [facility] [address] [place] [address] Dr. Job Lopez (RBC) [Entitic mass]32.0 pgDogcch78.7-34.0The [facility] HospitalComment on above:Performed By: #### CBC #### [facility] [address] [place] [address] Dr. Job Lopez (RBC) [Mass/Vol]33.7 g/iMZfemdk49.9-35.2The [facility] HospitalComment on above:Performed By: #### CBC #### [facility] [address] [address] [address] Job LopezV (RBC) [Entitic vol]95.0 fSMznxyh49.0-99.0The [facility] HospitalComment on above:Performed By: #### CBC #### [facility] [address] [address] [address] Job Barajas #0.6 103/ulNormal0.3-0.8The [facility] HospitalComment on above:Performed By: #### CBC #### [facility] [address] [place] [address] Dr. Job Martinezocytes/100 WBC (Bld)8.4 %Normal1.7-12.0The [facility] on above:Performed By: #### CBC #### [facility] [address] [place] [address] Dr. Job Velazquez #3.5 103/ulNormal1.4-6.5The [facility]ment on above:Performed By: #### CBC #### [facility] [address] [place] [address] Dr. Job Groverutrophils/100 WBC (Bld)52.9 %Zhtkqp50.0-75.0The [facility] on above:Performed By: #### CBC #### [facility] [address] [place] [address] Dr. Job Bynumlet mean volume (Bld) [Entitic vol]10.9 fLNormal9.5-13.5The [facility]ment on above:Performed By: #### CBC #### [facility] [address] [place] [address] Dr. Job CerdaPLT177 103/nrTfsduk508-676Cjx [facility]ment on above: Performed By: #### CBC #### [facility] [address] [place] [address] Dr. Job CerdaRBC4.22 106/ulNormal4.20-5.40The [facility] on above:Performed By: #### CBC #### [facility] [address] [address] [address] Job CerdaWBC6.7 103/ulNormal4.0-11.0The [facility] HospitalComformerly [facility] on above: Performed By: #### CBC #### [facility] [address] [address] [address] Job CerdaGLYCOHEMOGLOBIN A1Con 38-60-4211NVV RECOMMENDATIONSEE BELOWNoRegency Hospital Cleveland WestComformerly [facility] on above:Result Comment: ADA RECOMMENDED LIMIT 4.0 - 6.0 ADA THERAPEUTIC TARGET < 7.0 ACTION SUGGESTED > 7.0Performed By: #### A1C #### [facility] [address] [address] [address] Job CerdaGlucose [Mass/Vol]120 mg/dLNoSouthern Ohio Medical CenterComment on above:Performed By: #### A1C #### [facility] [address] [address] [address] Job CerdaHbA1c (Bld) [Mass fraction]5.8 %Normal4.5-6.2[facility] Memorial HospitalComment on above:Performed By: #### A1C #### [facility] [address] [address] [address] Job YuanID PROFILEon 50-37-3734PUEN-HDL RATIO NORMSEE [facility] on above:Result Comment: 3.3 - 4.4 LOW RISK 4.4 - 7.1 AVERAGE RISK 7.1 - 11.0 MODERATE RISK >11.0 HIGH RISKPerformed By: #### TSH, BMP, LIVER, LIPID #### [facility] [address] [address] [address] Job CerdaCholesterol [Mass/Vol]139 mg/dLNormal<=200[facility] Comment on above:Performed By: #### TSH, BMP, LIVER, LIPID #### [facility] [address] [address] [address] Job CerdaCholesterol in HDL [Mass/Vol]65 mg/dLCritically aysr58-39VjzGrand Lake Joint Township District Memorial HospitalComment on above:Performed By: #### TSH, BMP, LIVER, LIPID #### [facility] [address] [address] [address] Job Manciniesterol in LDL [Mass/Vol]57.8 mg/dLNoSouthern [place] Medical CenterComment on above:Performed By: #### TSH, BMP, LIVER, LIPID #### [facility] [address] [address] [address] Job Galvez.total/Cholesterol in HDL [Mass ratio]2.1 {ratio} NormalThe [facility] HospitalComment on above:Performed By: #### TSH, BMP, LIVER, LIPID #### [facility] [address] [address] [address] Job Jain NORMAL> or = 60 mg/dl - LOW CARDIOVASCULAR RISK <40 mg/dl - HIGH CARDIOVASCULAR RISKNoSouthern [place] Medical CenterComment on above:Performed By: #### TSH, BMP, LIVER, LIPID #### [facility] [address] [place] [address] Dr. Job Klein CALC NORMALSEE BELOWNoSouthern [place] Medical CenterComment on above:Result Comment: <100 mg/dl OPTIMAL 100 - 129 mg/dl NEAR OR ABOVE OPTIMAL 130 - 159 mg/dl BORDERLINE HIGH 160 - 189 mg/dl HIGH >190 mg/dl VERY HIGH Performed By: #### TSH, BMP, LIVER, LIPID #### [facility] [address] [address] [address] Job CerdaTriglyceride [Mass/Vol]81 mg/dLNormal<=150[facility] Comment on above:Performed By: #### TSH, BMP, LIVER, LIPID #### [facility] [address] [place] [address] Dr. Job SalazarLDL CALC16.2 mg/dLNoSouthern [place] Medical CenterComment on above: Performed By: #### TSH, BMP, LIVER, LIPID #### [facility] [address] [address] [address] Job Prado PROFILEon 47-26-5189Hkkqblx [Mass/Vol]3.8 g/dLNormal3.4-5.0 [facility] HospitalComment on above:Performed By: #### TSH, BMP, LIVER, LIPID #### [facility] [address] [address] [address] Job CerdaAlbumin/Globulin [Mass ratio]1.1 {ratio}NormalThe [facility] HospitalComment on above:Performed By: #### TSH, BMP, LIVER, LIPID #### [facility] [address] [address] [address] Job Spencer [Catalytic activity/Vol]79 U/YIcvqnz90-442Evk [facility] HospitalComment on above:Performed By: #### TSH, BMP, LIVER, LIPID #### [facility] [address] [place] [address] Dr. Job LeungT [Catalytic activity/Vol]33 U/VTnncdy31-43Ibd [facility] HospitalComment on above:Performed By: #### TSH, BMP, LIVER, LIPID #### [facility] [address] [place] [address] Dr. Job CerdaAST [Catalytic activity/Vol]13 U/LCritically tov52-51Dzg [facility] on above:Performed By: #### TSH, BMP, LIVER, LIPID #### [facility] [address] [place] [address] Dr. Job Adrian, CONJUGATED0.2 mg/dLNormal0.0-0.2The [facility] Comment on above:Performed By: #### TSH, BMP, LIVER, LIPID #### [facility] [address] [place] [address] Dr. Job Medellinirubin [Mass/Vol]0.7 mg/dLNormal0.2-1.0The [facility] Comment on above:Performed By: #### TSH, BMP, LIVER, LIPID #### [facility] [address] [place] [address] Dr. Job CerdaGlobulin (S) [Mass/Vol]3.4 g/dLNormalThe [facility] HospitalComment on above:Performed By: #### TSH, BMP, LIVER, LIPID #### [facility] [address] [place], [place] [address] Dr. Job CerdaProtein [Mass/Vol]7.2 g/dLNormal6.4-8.2The [facility] Comment on above:Performed By: #### TSH, BMP, LIVER, LIPID #### [facility] [address] [place], [place] [address] Dr. Job CerdaMG MAMM SCREEN 3D TASHIA CADon 16-24-7383QL MAMM SCREEN 3D TASHIA CAD Patient: CHRISTELLE MOHAN Exam Date: 07/31/2022 : 1955 Gender:F Ordering : DR SHAUN SANCHEZ . Admission #: [id number] Family : Order #: [id number] CLICK HERE TO VIEW EXAM RADIOLOGY REPORT [...] colon cancer at age 65. LOCATION: [facility] BREAST COMPOSITION: Heterogeneously dense,which may obscure [...] by: Osman Javed M.D. on 07/31/2022 at 11:56NoSouthern [place] Medical CenterPRO CHEM 8 (BAS METB)on 43-78-5112Ydsew gap [Moles/Vol]10.1 mmol/L NormalThe [place] HospitalComment on above:Performed By: #### TSH, BMP, LIVER, LIPID #### [facility] [address] [address] [address] Job CerdaCalcium [Mass/Vol]9.2 mg/dLNormal8.5-10.1[facility] Comment on above:Performed By: #### TSH, BMP, LIVER, LIPID #### [facility] [address] [address] [address] Job CerdaChloride [Moles/Vol]103 mmol/BPjtpqs19-092Cbf [facility] Comment on above:Performed By: #### TSH, BMP, LIVER, LIPID #### [facility] [address] [address] [address] Job CerdaCO2 [Moles/Vol]30.6 mmol/YSvjmdl20.0-32.0The [facility] Comment on above:Performed By: #### TSH, BMP, LIVER, LIPID #### [facility] [address] [address] [address] Job CerdaCreatinine [Mass/Vol]1.00 mg/dLNormal0.55-1.02The [facility] HospitalComment on above:Performed By: #### TSH, BMP, LIVER, LIPID #### [facility] [address] [place] [address] Dr. Kaiser ChangEGFR-AF MACANESE>60Normal>=60The [facility] HospitalComment on above:Performed By: #### TSH, BMP, LIVER, LIPID #### [facility] [address] [place] [address] Dr. Job UrenaGFR-NON AF RRVHFAWT06 mL/min/1.24w9Jyctftvoyt low>=60The [facility] HospitalComment on above:Performed By: #### TSH, BMP, LIVER, LIPID #### [facility] [address] [place] [address] Dr. Job CerdaGlucose [Mass/Vol]115 mg/dLCritically xsmz93-788Ite [facility] Troyment on above:Performed By: #### TSH, BMP, LIVER, LIPID #### [facility] [address] [address] [address] Job CerdaPotassium [Moles/Vol]3.7 mmol/LNormal3.5-5.1The [facility] Comment on above:Performed By: #### TSH, BMP, LIVER, LIPID #### [facility] [address] [address] [address] Job CerdaSodium [Moles/Vol]140 mmol/NXnpxtb041-374Yme [facility] Comment on above:Performed By: #### TSH, BMP, LIVER, LIPID #### [facility] [address] [address] [address] Job CerdaUrea nitrogen [Mass/Vol]20.0 mg/dLCritically high7.0-18.0The [facility] HospitalComment on above:Performed By: #### TSH, BMP, LIVER, LIPID #### [facility] [address] [address] [address] Job [place] nitrogen/Creatinine [Mass ratio]20.0 mg/mgNormalThe [facility] HospitalComment on above:Performed By: #### TSH, BMP, LIVER, LIPID #### [facility] [address] [address] [address] Job Luis 02-81-4233MAK0.723 uIU/mLNormal0.358-3.740The [facility] HospitalComment on above:Performed By: #### TSH, BMP, LIVER, LIPID #### [facility] [address] [place] [address] Dr. Kaiser ChangECHOCARDIMack M/2D COMPLETEon 33-35-3091SPOAJDJVJI M/2D COMPLETE Patient: CHRISTELLE MOHAN Exam Date: 02/22/2022 : 1955 Gender:F Ordering : DR SHAUN SANCHEZ . Admission #: [id number] Family : Order #: [id number] CLICK HERE TO VIEW EXAM ECHOCARDIOGRAM REPORT [...] Area(A4C): 14.30 cm2 Left Atrium Systolic Volume(A2C): 83743 mm3 Left Atrium Systolic Volume(A4C): 29566 mm3 Mitral Valve MV E to A [...] by: Bob Fiore M.D. on 02/22/2022 at 18:37[facility] Vital Signs Date TimeVital SignValuePerforming EojcukjbqAlmksrfh89-95-3812 13:51-0400Body fcvezt378.02 cmShaun Sanchez MD Work Phone: [phone]10-02-2025 13:51-0400 Body mass index (BMI) [Ratio]33.1 kg/m2Shaun Sanchez MD Work Phone: [phone]10-02-2025 13:51-0400 Body vnhysadtqzi82.5 [degF]Shaun Sanchez MD Work Phone: [facility]10-02-2025 13:51-0400 Body jaopkw39.82 kgShaun Sanchez MD Work Phone: [facility]10-02-2025 13:51-0400 Diastolic blood ovcsanbk22 mm[Hg]Shaun Sanchez MD Work Phone: [facility]10-02-2025 13:51-0400 Heart rate60 /minShaun Sanchez MD Work Phone: [facility]10-02-2025 13:51-0400 Respiratory rate20 /minShaun Sanchez MD Work Phone: [facility]10-02-2025 13:51-0400 SaO2% (BldA) [Mass fraction]97 %Shaun Sanchez MD Work Phone: [facility]10-02-2025 13:51-0400 Systolic blood ftcmiwmq819 mm[Hg]Shaun Sanchez MD Work Phone: [facility]06-16-2025 08:17-0400 Body fgojrj908 cmShaun Sanchez MD Work Phone: [facility] HealthHufozsoupu47-70-6027 08:17-0400Body mass index (BMI) [Ratio]33.13 kg/m2Shaun Sanchez MD Work Phone: [facility] HealthRgahphcbjn90-06-5063 08:17-0400Body temperature 97.5 [degF]Shaun Sanchez MD Work Phone: [facility] HealthDtoshacfeb26-67-0084 08:17-0400Body .82 kgShaun Sanchez MD Work Phone: [facility] HealthXhcglnfzcv91-59-2438 08:17-0400Diastolic blood mmbwuuke37 mm[Hg]Shaun Sanchez MD Work Phone: [facility] HealthXskalfipny51-18-3602 08:17-0400Heart rate96 /min Shaun Sanchez MD Work Phone: [facility] HealthRrwmxgcekl45-82-7544 08:17-0400Respiratory rate20 /minShaun Sanchez MD Work Phone: [facility] HealthXjeesrdune06-12-5903 08:17-8325TdK5% (BldA) [Mass fraction]97 %Shaun Sanchez MD Work Phone: [facility] HealthFbzzhjjzkr90-89-4748 08:17-0400Systolic blood hxealvno115 mm[Hg]Shaun Sanchez MD Work Phone: [facility] HealthUfzwsxgsxk04-52-8547 08:08-0500Body wuegut951 cm Shaun Sanchez MD Work Phone: [facility] HealthTugkwpsucg88-88-2463 08:08-0500Body mass index (BMI) [Ratio]32.95 kg/m2Shaun Sanchez MD Work Phone: [facility] HealthBbwhvulfmt43-43-9050 08:08-0500Body temperature 97.5 [degF]Shaun Sanchez MD Work Phone: [phone]-[facility] HealthYhiyupvnah98-97-2952 08:08-0500Body pcspol20.37 kgShaun Sanchez MD Work Phone: [phone]-[facility] HealthOggdqkorvs76-99-6716 08:08-0500Diastolic blood lthmeexm24 mm[Hg]Shaun Sanchez MD Work Phone: [phone])501-[address] [place], [place] [address]Bxtwmjxnzi06-88-7669 08:08-0500Heart rate73 /min Shaun Sanchez MD Work Phone: [phone] [place], [place] [address]Qlqxqtjyew06-36-0903 08:08-0500Respiratory rate22 /minShaun Sanchez MD Work Phone: [phone] [place], [place] [address]Uprkthgofn02-12-7407 08:08-5407UaB9% (BldA) [Mass fraction]93 %Shaun Sanchez MD Work Phone: [phone])181-[address] [place], [place] [address]Nlbgjemzqj28-28-0103 08:08-0500Systolic blood ndfayrqn538 mm[Hg]Shaun Sanchez MD Work Phone: 1(344)648-[address] [place], [place] [address]Likjekpixi17-37-9741 08:16-0400Body nzdcja308 cm Shaun Sanchez MD Work Phone: [phone] [place], [place] [address]Lorhkpkkvr19-70-1735 08:16-0400Body mass index (BMI) [Ratio]32.06 kg/m2Shaun Sanchez MD Work Phone: [phone] [place], [place] [address]Anedsfjncb13-93-7524 08:16-0400Body temperature 97.11 [degF]Shaun Sanchez MD Work Phone: [phone] [place], [place] [address]Bkkvozpfin09-49-7618 08:16-0400Body limvow16.1 kg Shaun Sanchez MD Work Phone: [facility] HealthBonuxnpzxx26-63-9013 08:16-0400Diastolic blood jridnaig67 mm[Hg]Shaun Sanchez MD Work Phone: 1(215)119-[address] [place], [place] [address]Duzsfzqbkc52-46-7407 08:16-0400Heart rate59 /min Shaun Sanchez MD Work Phone: [facility] HealthUfsmvmivcd94-36-2682 08:16-0400Respiratory rate22 /minShaun Sanchez MD Work Phone: [facility] HealthIsjbypfqtx08-98-3203 08:16-1657DfX6% (BldA) [Mass fraction]97 %Shaun Sanchez MD Work Phone: [facility] HealthHaejdpkdpp07-45-2513 08:16-0400Systolic blood nfndwosd571 mm[Hg]Shaun Sanchez MD Work Phone: [facility] HealthCzutqdzhqe13-32-0766 14:16-0400Blood Pressure LocationMichael NILL [facility] Agxovozi38-88-3388 14:16-0400Diastolic blood czvmmtvi96 mm[Hg]Job NILL [facility] Hsplohtr89-17-9759 14:16-0400Heart rate 72 /minMichael NILL [facility] Eyhntvem57-85-9047 14:16-0400 Respiratory rate16 /minMichael NILL [facility] Vkuqpzbp51-56-4259 14:16-0400Systolic blood oopcbbgp633 mm[Hg]Job NILL [facility] [place] Encounters Encounter DateEncounter TypeCare ProviderFacilityStart: 08-13-2025 End: 54-88-2343ljdiwehmfqUgvz Naderer MD Work Phone: [facility] Work Phone: Start: 08-13-2025 End: 80-86-7548Fecubdk encounter procedureShaun Sanchez MD-[facility] [place] Work Phone: Start: 47-59-4893Rhu-patient / Non-visitShaun Sanchez [facility] [place] Work Phone: Start: 05-27-2025 End: 82-33-4898Uiqgzstiz encounterSammantha Looney PTNOMS CI PTComment on above:PT Vertigo fu; fu; FinalStart: 05-05-2025 End: 42-47-2363Wvovfo flowsheetSammantha Looney PTNOMS CI PTStart: 05-05-2025 End: 87-42-4976Bzxwwy flowsheetSammantha Looney PTNOMS CI PTStart: 05-05-2025 End: 06-98-4350ikphyjphysZtikxdlvy Looney PTNOMS CI PTComment on above: Vertigo (Primary Dx)Start: 04-27-2025 End: 56-15-5561Lwcriokade Sanchez MD Work Phone: [facility] CWM FMStart: 04-27-2025 End: 25-83-2898Gifewlrios Sanchez MD Work Phone: [facility] CWM FMStart: 04-27-2025 End: 78-83-0633Hotjnaxos encounterSammantha Looney PTNOMS CI PTComment on above:PT for Vertigo (Call to fu on 05/01/25.); FU to check status; Scheduled (PT 05/05/25 w/ Arden Looney, PT.)Start: 04-27-2025 End: 84-13-5009Jwfsxu outpatient visit 25 minutesMartoby Sanchez MD Work Phone: [facility] CWM FMComment on above:Essential hypertension, benign (Primary Dx); Ventricular ectopy; Vertigo; Labyrinthitis, unspecified lateralityStart: 04-27-2025 End: 64-03-9582oovlrjnvmaKCLN NADERERNot AvailableStart: 10-22-2024 End: 49-20-4538Rjvdcerios Sanchez MD Work Phone: [facility] CWM FMStart: 10-22-2024 End: 09-21-1083Opxlfqrios Sanchez MD Work Phone: NOQE CWM FMStart: 10-22-2024 End: 55-53-6537Wlnebpn encounter procedureShaun Sanchez MD Work Phone: [facility] Work Phone: Start: 10-22-2024 End: 59-01-9439Cwywvy follow up visit related to original Tika Sanchez MD Work Phone: [facility] CWM FMComment on above:Medicare annual wellness visit, subsequent (Primary Dx)Start: 10-22-2024 End: 46-40-6706hamwxugfviCWIU NADERERNot AvailableStart: 08-28-2024 End: 44-10-3988Fzxybyxeo Result EncounterShaun Sanchez MD Work Phone: noms External Department UnsolicitedStart: 08-28-2024 End: 68-68-8335Laqxhasqo Result EncounterShaun Sanchez MD Work Phone: noms External Department UnsolicitedStart: 07-11-2024 End: 86-21-9278Rwlawtjoh Result EncounterShaun Sanchez MD Work Phone: noms External Department UnsolicitedStart: 07-11-2024 End: 09-22-5502Yepyztyof Result EncounterShaun Sanchez MD Work Phone: noms External Department UnsolicitedStart: 07-07-2024 End: 35-25-5612Vezguf Misa Sanchez MD Work Phone: [facility] CWM FMStart: 07-07-2024 End: 75-63-4078Tvxlui flowsBenjie Sanchez MD Work Phone: [facility] CWM FMStart: 07-07-2024 End: 47-83-6166roabmkdbbjMFKM NADERERNot AvailableStart: 07-07-2024 End: 29-01-0555Fmjshf outpatient visit 15 minutesShaun Sanchez MD Work Phone: [facility] CWM FMComment on above:Essential hypertension, benign (CMS/HCC) (Primary Dx); Ventricular ectopy; Seasonal allergic rhinitis due to pollen; Dyslipidemia (CMS/HCC); Prediabetes; Encounter for long-term current use of medication; Obesity (BMI 30-39.9)Start: 03-05-2024 End: 78-51-5103Zqeexjncd Result EncounterShaun Sanchez MD Work Phone: [facility] External Department UnsolicitedStart: 03-05-2024 End: 27-26-3845Floeglfrz Result EncounterMartoby Sanchez MD Work Phone: [facility] External Department UnsolicitedStart: 08-14-2023 End: 71-07-5819slabqixrbfRcfccgu R NILLFacility: [place]vueStart: 08-14-2023 End: 91-19-9735Dwaucin encounter procedureMichael R NILL General Surgery Nill/Said [place] Start: 56-89-6682mizxwrpmhoIfziceg NILLFacility: [place]walkStart: 08-01-2023 End: 47-27-9742gzunezonzhTjsmfhn R NILLFacility::[id number]: 07-11-2023 End: 58-80-7855iedvcqrckgTnkkcdm R NILLFacility: [place]aueStart: 07-11-2023 End: 16-73-1934Tovfmyp encounter procedureMichael R NILL General Surgery Nill/Said [place] Start: 33-92-3011epcomgyaazQchrhak R NILLFacility: [place]aevueStart: 07-31-2022 End: 13-16-5174cxdmttkjcvQP SHAUN Mayen NADERERFacility:L6Pkyzp: 02-22-2022 End: 69-00-7124lcduziwhbyNV MARC A NADERERFacility:V9Dskax: 02-03-2022 End: 14-08-8223cwytwbwnwtTO SHAUN A NADERERFacility:H1 Procedures DateProcedureProcedure DetailPerforming ClinicianStart: 98-69-5258HT TOMOSYNTHESIS DIAGNOSTIC BIMarc Daniel STANTON Work Phone: Start: 71-77-6356Cl breast uni real time with image limitedShaun Sanchez MD Work Phone: Start: 51-24-0015PesanqkcrhpDasb Naderer MD Work Phone: Start: 76-14-8718TKZ CBC WITH AUTO DIFFShaun Sanchez MD Work Phone: Start: 12-49-7636JV TOMOSYNTHESIS DIAGNOSTIC RTShaun Sanchez MD Work Phone: Start: 29-23-2110Sw breast uni real time with image limitedShaun Sanchez MD Work Phone: Start: 24-95-9228PbckpznljaxQrjy Naderer MD Work Phone: Start: 53-03-8997BeqobumzxheTtdb Naderer MD Work Phone: Start: 11-55-9215HcaubktitfyDvmcdrn NILL Start: 30-43-2116RjdoxfnciqeEryijvz NILL Abdominal hysterectomyMichael NILL ColonoscopyMichael NILL TonsillectomyMichael NILL Plan of Treatment DateCare ActivityDetailAuthorStart: 35-32-4274Wrvlyuonu for malignant neoplasm of colonNOMS HealthcareStart: 10-26-2025 End: 18-76-5826Vpwfrpq encounter /15/2025 11:00 AM EST Office Visit [facility] [address] [place] [id number] Shaun Sanchez MD [address] [place] [address] [facility] CWM FMStart: 12-11-2025Medicare Annual Wellness (AWV)Medicare Annual Wellness (AWV)NOM HealthcareStart: 58-54-3715Iysgvqqly for malignant neoplasm of breastMammogramNOMS HealthcareStart: 74-90-8935Orvsmjves vaccinationInfluenza Vaccine (#1)[facility] HealthcareStart: 05-12-2025 End: 98-87-2109jekiezgfmg10/01/2025 9:00 AM EDT Treatment [facility] [address] [place] [address] Kapil Looney, PTNOMS CI PTStart: 05-05-2025 End: 69-53-2209lelnptzixa97/24/2025 1:30 PM EDT Evaluation [facility] [address] [facility] [address] [place] [address] Kapil Looney, PT VertigoNOMS CI PTComment on above:VertigoStart: 04-27-2025 End: 32-71-4211Srdyjqg encounter procedureNOMS CWM FMComment on above:Arrived Start: 10-22-2024 End: 45-28-0045Ifercas encounter procedureNOMS CWM FMComment on above:Arrived Start: 61-91-6740Jmxjqmrlv for malignant neoplasm of breastMammogramNOMS HealthcareStart: 77-86-5793Tpftwqthv vaccinationInfluenza Vaccine (#1)[facility] HealthcareStart: 07-07-2024 End: 87-61-5173Zpowr metabolic 1998 panel - Serum or PlasmaBasic metabolic panel Lab Routine Essential hypertension, benign (CMS/HCC) Expected: 07/07/2024 (Gal roximate), Expires: 07/07/2025NOMS HealthcareComment on above:Expected: 07/07/2024 (Approximate), Expires: 07/07/2025Start: 07-07-2024 End: 46-96-4548HOI W Auto Differential panel - BloodCBC and differential Lab Routine Encounter for long-term current use of medication Expected: 07/07/2024 (Approximate), Expires: 07/07/2025NOIL HealthcareComment on above:Expected: 07/07/2024 (Approximate), Expires: 07/07/2025Start: 07-07-2024 End: 65-50-6964Eetpndzxth A1c/Hemoglobin.total in BloodHemoglobin A1c Lab Routine Prediabetes Expected: 07/07/2024 (Approximate), Expires: 07/07/2025[facility] Work Phone: Comment on above:Expected: 07/07/2024 (Approximate), Expires: 07/07/2025Start: 07-07-2024 End: 70-51-6819Okowqmp function 2000 panel - Serum or PlasmaHepatic function panel Lab Routine Encounter for long-term current use of medication Expected: 07/07/2024 (Approximate), Expires: 07/07/2025NOIL HealthcareComment on above: Expected: 07/07/2024 (Approximate), Expires: 07/07/2025Start: 07-07-2024 End: 79-55-1601Ievxx 1996 panel - Serum or PlasmaLipid panel Lab Routine Dyslipidemia (CMS/HCC) Expected: 07/07/2024 (Approximate), Expires: 07/07/2025 NOMS HealthcareComment on above:Expected: 07/07/2024 (Approximate), Expires: 07/07/2025Start: 07-07-2024 End: 37-76-7462Lzaddlkwidg [Units/volume] in Serum or PlasmaTSH Lab Routine Obesity (BMI 30-39.9) Expected: 07/07/2024 (Approximate), Expires: 07/07/2025 NOMS HealthcareComment on above:Expected: 07/07/2024 (Approximate), Expires: 07/07/2025Start: 55-97-0066Xhggfbuwy for malignant neoplasm of colonMISSOURI [facility] HealthcareStart: 58-29-8468Gewlohjwnlij Vaccine: 65+ Years (1 of 1 - PCV) Pneumococcal Vaccine: 65+ Years (1 of 1 - PCV)[facility] HealthcareStart: 2005 Pneumococcal Vaccine: 65+ Years (1 of 1 - PCV)Pneumococcal Vaccine: 65+ Years (1 of 1 - PCV)[facility] HealthcareStart: 1955Medicare Annual Wellness (AWV) Medicare Annual Wellness (AWV)NOM HealthcareStart: 64-44-9466Dfiohiuix for malignant neoplasm of colonNOMS HealthcareXR Foot - left GE 3 [facility] Immunizations Immunization DateImmunizationNotesCare YyymktzcRllkdqkf53-70-6576gcnyksguj virus vaccine, unspecified formulationAvenir Behavioral Health Center At Surprise Daniel STANTON Work Phone: NOTwo [facility] Psychiatric HospitalOqnkvengjx78-72-7719HXKO-VvR-2 (COVID-19) mRNAMUL.ORD!l58837Dynpseb NILL General Surgery Hvqjesni14-75-0538TXQC-IiU-6 (COVID-19) mRNA BNT-162b2 vaxMichael NILL General Surgery Wpcuscml54-69-9238WMGX-OpD-4 (COVID-19) mRNA BNT-162b2 vaxMichael NILL General Surgery Tiwegcjb45-51-5932DBTA-CwW-0 (COVID-19) mRNA BNT-162b2 vaxMichael NILL General Surgery [place] Payers DatePayer CategoryPayerPolicy [id number] 2020Medicare [employer] MEDICARE [employer] [place] MEDICARE [id number] 2020-Present [address] [place], [id number] Medicare (Managed Care)[employer] Member Subscriber Plan / Payer (Effective 2020-Present) Name: Christelle Mohan Relation to Subscriber: Self Name: Christelle Mohan Payer ID: Not on file Type: Not on file Address: [address] [id number] [id number] [id number] [id number] [id number] 2.16840.1.771385.3.57[id number] 2.840.1.439698.3.57[id number] 2.16840.1.642961.3.57[id number] 2.840.1.177183.3.57[id number] 2.16840.1.124257.3.57[id number] 2.16840.1.479206.3.57[id number] 2.840.1.267516.3.57[id number] 2.840.1.291791.3.57[id number] 2.840.1.410081.3.579.2.[id number] 2.840.1.298483.3.579.[id number] 2.840.1.260144.3.579.2.1259 Social History DateTypeDetailFacilityStart: 07-11-2023 End: 71-18-3953Eaxfpcd smoking statusNever smoked tobacco (finding)[facility]Start: 77-60-0944Nuwvfge smoking statusNeverGeneral Surgery BellevueStart: 06-30-2024 End: 21-81-6918[facility]tart: 16-25-3394Tgvtdgk use and exposureSmokeless tobacco non-userNOMS Healthcare Start: 06-30-2024 End: 46-28-2664Wwlpsow of Social functionNOMS HealthcareDo you belong to any clubs or organizations such as moravian groups, unions, fraWellbe or athletic morgan ups, or school groups?NoNOMS [...] before (I/we) got money to buy more.Never trueNOMS HealthcareStart: 1955 Sex assigned at birthNot on fileNOMS HealthcareSexFemale (finding)[facility] Centertart: [id number] Functional Status GjbwOxhgucvrqbTmkhllQjsaazfc36-08-1463Fhbnwgu Health Questionnaire 2 item (PHQ- 2) [Reported][facility] Trnzyyahiq37-93-6877Owmri score [AUDIT-C]2 06/30/2024 9:05 AM EDT Mychart, GenericNOTwo [facility] HospitalUlubylbwes66-68-9699Qwe often do you have a drink containing alcohol?2-4 times a month 06/30/2024 9:05 AM EDT Mychart, Generic 2-4 times a monthNOTwo [facility] HospitalUlismqapzf10-61-2077Nck many standard drinks containing alcohol do you have on a typical day?1 or 2 06/30/2024 9:05 AM EDT Mychart, Generic 1 or 2NOMS Lreypetits36-29-9624Tfb often do you have 6 or more drinks on 1 occasion?Never 06/30/2024 9:05 AM EDT Mychart, Generic [facility] 15-10-6836Lxegclskjg StatusN/AGeneral Surgery [facility] Clinical Notes 07-11-2023 to 05-27-2025 Note Date & AcpjZxpvZpflgokd60-14-1158 Telephone encounter Note* Telephone Encounter - Yudi Holm - 05/27/2025 1:03 PM EDT Attempted 3x's w/ messages left to check on status (vertigo). Noted request to call back; from previous 2 left messages no reply. [facility] Sqpdmdgsss28-16-0127 Miscellaneous Notes* Telephone Encounter - Yudi Holm - 05/27/2025 1:03 PM EDT Attempted 3x's w/ messages left to check on status (vertigo). Noted request to call back; from previous 2 left messages no reply. documented in this encounterCarondelet HealthOtwcaelhef25-84-6936 History of Present illness Narrative* Kapil Looney, [...] over in bed and bending forward. Precautions: [place] Subjective: denies any pain Pain: 0/10 Objective: [...] PT. Outcome Measure: Dizziness Handicap Inventory (DHI): Rehab Diagnosis: dizziness, difficulty walking Short Term [...] Please sign below. Date: documented in this [facility]06-20-2025 Telephone encounter Note* Telephone Encounter - Yudi Holm - 05/01/2025 9:36 AM EDT LM requesting a call back to check PT status re: Rx trial. Noted we can schedule quinten if needed. [facility] HealthMrzvqhkudt57-54-8891 Miscellaneous Notes* Telephone Encounter - Yudi Holm [...] 05/01 for fu call. documented in this [facility]06-16-2025 Telephone encounter Note* Telephone Encounter - Yudi [...] check; she requested 05/01 for fu call. [facility] [id number] History of Present illness Narrative* Shaun Sanchez [...] exercises but no change. Recent trip to [place] and ears plugged since. C/o sinus pressure [...] (Levaquin) 750 MG tablet documented in this encounterCarondelet HealthBhzujmreoy59-98-6618 History of Present illness Narrative* Shaun Sanchez [...] Advised not to smoke. documented in this encounterCarondelet HealthVnbzleowtc77-85-1563 History of Present illness Narrative* Shaun Sanchez [...] were not included. Subjective Patient ID: Christelle Moahn is a 68 y.o. female who presents [...] 30-39.9) Relevant Orders TSH documented in this encounterCarondelet HealthAmjwikremj16-74-0491 NoteChief Complaint consultation for surveillance colonoscopy [facility] Staff 67 year old female [...] Brother. Immunizations Vaccine Date Status SARS-CoV-2 (COVID-19) mRNAMUL.ORD![id number] 10/20/2022 Recorded SARS-CoV-2 (COVID-19) mRNA BNT-162b2 vax 09/06/2021 Recorded SARS-CoV-2 (COVID-19) mRNA BNT-162b2 vax 02/08/2021 Recorded SARS-CoV-2 (COVID-19) mRNA BNT-162b2 vax 01/17/2021 RecordedCleveland Clinic Union HospitalComment on above:Result Comment: Electronically Signed By: GERI STANTON, Job Camacho\Date and Time Signed: 07/11/23 14:51 EDTEvaluation + Plan note No data available for this section General Surgery [place] Evaluation note* Diagnosis Essential hypertension, benign (CMS/HCC)- [...] Dizziness and giddiness documented in this encounter [facility]S HealthcareEvaluation note* Diagnosis Onset Date Resolution Status Admit Date Left foot pain acuteOctober 2024 1:44pm [facility] Work Phone: Hospital Discharge instructions No data available for this section General Surgery [place] Progress note No data available for this section General Surgery [place] Reason for referral (narrative)No reason for referral information availableAultman Hospital Work Phone: [place] for visit Narrative* Rehabilitation - Outpatient (Routine) - AuthorizedSpecialtyDiagnoses / ProceduresReferred By ContactReferred To ContactPhysical Therapy Diagnoses Vertigo Procedures UT OFFICE/OUTPATIENT NEW HIGH MDM 60 MINUTES Shaun Sanchez MD [address] [place] [address] Phone: tel: fax: Kapil Looney PT Referral IDStatusReasonStart DateExpiration DateVisits RequestedVisits [id number] Specialty Services Required 30 [facility] Healthcare Summary Purpose Family History No Family [...] section and content) DATE CREATED AUTHOR 11/22/2022 [facility] DATE CREATED AUTHOR AUTHOR'S ORGANIZ ATION 08/15/2023 [facility] DATE CREATED AUTHOR AUTHOR'S ORGANIZ ATION 05/06/2025 [facility] EPIC Patient Care team informatio n (unrecognized section and content) Team MemberRelationshipSpecialtyStart DateEnd Date Shaun Sanchez MD [address] [place] [address] PCP - GeneralFamily Medicine12/25/23 Shaun Sanchez MD [address] [place] [address] [facility] - Medical [facility]08/12/2012Team MemberRelationshipSpecialtyStart Date End Date Shaun Sanchez MD [address] [place] [address] [facility] - [facility]12/25/23 Shaun Sanchez MD [address] [place] [address] [facility] - Medical [facility]08/12/2012Team MemberRelationshipSpecialtyStart Date End Date Shaun Sanchez MD [address] [place] [address] [facility] - [facility]12/25/23 Shanu Sanchez MD [address] [place] [address] [facility] Medical [facility]08/12/2012Team MemberRelationshipSpecialtyStart Date End Date Shaun Sanchez MD [address] [place] [address] [facility]12/25/23 Shaun Sanchez MD [address] [place] [address] [facility] Medical [facility]08/12/2012Team MemberRelationshipSpecialtyStart Date End Date Shaun Sanchez MD [address] [place] [address] [facility] - [facility]12/25/23 Shaun Sanchez MD [address] [place] [address] [facility] - [facility]08/12/2012Team MemberRelationshipSpecialtyStart Date End Date Shaun Sanchez MD [address] [place] [address] [facility]12/25/23 Shaun Sanchez MD [address] [place] [address] [facility]08/12/2012Team MemberRelationshipSpecialtyStart Date End Date Shaun Sanchez MD [address] [place] [address] [facility]12/25/23 Shaun Sanchez MD [address] [place] [address] [facility]08/12/2012Team MemberRelationshipSpecialtyStart Date End Date Shaun Sanchez MD [address] [place] [address] [facility]12/25/23 Shaun Sanchez MD [address] [place] [address] [facility]08/12/2012Team MemberRelationshipSpecialtyStart Date End Date Shaun Sanchez MD [address] [place] [address] [facility]12/25/23 Shaun Sanchez MD [address] [place] [address] [facility]08/12/2012Team MemberRelationshipSpecialtyStart Date End Date Shaun Sanchez MD [address] [place] [address] [facility]12/25/23 Shaun Sanchez MD [address] [place] [address] [facility]08/12/2012 Team Status: Active Member Role Status Dates Shaun Sanchez MD Primary Care Provider Active Team Status: Active Member Role Status Dates Shaun Sanchez MD Attending Provider Active Star t: July 23, 2025 Team Status: Inactive Member Role Status Dates Shaun Sanchez MD Primary Care Provider Active S tart: August 13, 2025 End: August 13, 2025[facility]irt[facility] Berlintoby Sanchez MDAttending ProviderActiveStart: August 13, 2025 End: August 13, 2025Team MemberRelationshipSpecialtyStart DateEnd Date Shaun Sanchez MD [facility]12/25/23 Shaun Sanchez MD [address] [place] [address] PCP - Medical [facility]08/12/2012Team MemberRelationshipSpecialtyStart Date End Date Shaun Sanchez MD PCP - [facility]12/25/23 Shaun Sanchez MD [address] [place] [address] PCP - Medical [facility]08/12/2012 Reason for Visit (unrecogniz ed section and content) ReasonCommentsMedicare Annual Wellness Visit SubsequentwellnessReasonComments Ouemmy-ix0eTnneljVhdehsatPtqgxi-jb7bLyrshiyxnHdojimQxmbg DateCommentsPT for Pyatize9704/27/2025all to fu on 05/01/25.FU to check gavxim8805/01/2025Scheduled 05/05/2025PT 05/05/25 w/ Arden Looney PT.ReasonOnset DateCommentsPT Vertigo fu 05/12/2025fu05/21/20259198Ktxml51/16/2025 Goals (unrecognized section and content) Goals may [...] BE BASED ON THE PRIMARY CLINICAL RECORDS. [facility]. provides no warranty or guarantee of the accuracy or completeness of information in this document.
== END 2025-10-06 10:13 | disposition home or self-care (01) ==
LOC: US 10:12
PROVIDERS: PCP Family Medicine; Visit Provider Family Medicine
DX: R92.8 Other abnormal and inconclusive findings on diagnostic imaging of breast (principal)
CPT/HCPCS: 76642

== ENCOUNTER 2025-10-29 11:37 | Outpatient (OUT) | payer MEDICARE, SELFPAY ==
--- OUTSIDE RECORDS SUMMARY | 2025-10-29 11:50 | XMS_ITS | Clinical Summary ---
Author Organization Opposing Views [facility] tem Address [id number] [place] [address] Care Team Providers Care Manager Therapy Name Role Phone Shaun Licona MD Primary Care Provider [phone] Allergies No known active allergies Medications MedicationSigDispense QuantityRefillsLast FilledStart DateEnd DateStatus lisinopril-hydroCHLOROthiazide (PRINZIDE,ZESTORETIC) 20-25 mg per tablet Take 1 tablet by mouth daily.Active atorvastatin (LIPITOR) 20 mg tablet Take 20 mg by mouth daily.Active Active Problems ProblemNoted DateDiagnosed VmskHprpheg05/07/2018 Family History Medical HistoryRelationNameCommentsColon cancerBrotherColon cancerMotherRelation NameStatusCommentsBrotherAliveFatherDeceasedMotherDeceased Social History Tobacco UseTypesPacks/DayYears UsedDateSmoking Tobacco: NeverSmokeless Tobacco: NeverAlcohol UseStandard Drinks/WeekCommentsYes0 (1 standard drink = 0.6 oz pure alcohol)ChildcareAnswerDate DgeoklehQomfiqzvnRtkqnmv83/12/2019EmploymentAnswer Date GgmxerefQvvuuhjpilTubbkkl31/12/2019Purpose - LifeAnswerDate RecordedPurpose and direction in dgklBgoexso90/11/2021CommentsUnknownSex and Gender InformationValueDate RecordedSex Assigned at BirthNot on fileLegal SexFemale 06/17/2015 11:24 AM EDTGender IdentityNot on fileSexual OrientationNot on file Last Filed Vital Signs Vital SignReadingTime TakenCommentsBlood Ynxyysrf910/8408 2:41 PM EDT Pulse--Temperature--Respiratory Rate--Oxygen Saturation--Inhaled Oxygen Concentration--Ueyvlt77.6 kg (180 lb)07/03/2018 2:41 PM AUVNjyglf526 cm (5' 3 ) 07/03/2018 2:41 PM EDTBody Mass Index31.8907/03/2018 2:41 PM EDT Plan of Treatment Health MaintenanceDue DateLast DoneCommentsDepression Dulquwdcc43/31/1967Tobacco Wibzpeota39/31/1967Adult BMI Exabjjfrh02/31/1973DTaP,Tdap and Td Vaccines (1 - Tdap)1974Zoster (Shingles) Vaccine (1 of 2)2005Fall Risk Screening 07/12/20203305Bkrbujmokfx56Influenza Xlpzhgu9207/13/2025RSV ( or age 60+ yrs) (1 - 1-dose 75+ series)2030 Medical Devices Not on file Procedures Procedure NamePriorityDate/TimeAssociated DiagnosisCommentsCOLONOSCOPYRoutine 06/26/2018 12:00 PM EDTfrom Last 3 Months or Most Recently Relevant to Health Maintenance Insurance Care Teams Team MemberRelationshipSpecialtyStart DateEnd Date Shaun Lciona MD PCP - GeneralFamily Medicine04/03/18
--- OUTSIDE RECORDS SUMMARY | 2025-10-29 11:50 | XMS_ITS | Clinical Summary ---
Author Organization [facility] Address [address] [place] [address] Care Team Providers Care Green End Worker Name Role Phone Shaun Licona MD Primary Care Provider [phone] Shaun Licona MD Unavailable Allergies No known [...] 180 tablet ctive Active Problems ProblemNoted DateDiagnosed PsddUeypwaf22/16/2025 Assessment & Plan (04/27/2025 8:48 AM EDT): Severe symptoms and fluid behind TM with ears plugged. Treat with antibiotics and steroids for possible middle ear infection. Use OTC meclizine PRN. If no improvement will need to start vestibular rehab. Medicare annual wellness visit, uermwangqw69/11/2024 Assessment & Plan (10/22/2024 9:12 AM EST): Reviewed labs. Discussed proper diet and regular aerobic exercise. Need aerobic exercise 5-6 days aweek for 30 minutes at a time. Smaller portions and limit total calories. Colonoscopy every 10 years. Tetanus every 10 years. Advised not to smoke. Abnormal mammogram of right cjxqtw8508/20/2024Encounter for long-term current use of fjslecvlru10/26/2024Class 1 obesity due to excess calories with serious comorbidity and body mass index (BMI) of 33.0 to 33.9 in adult07/07/2024 Essential hypertension, cfaqko2301/02/2024 Assessment & Plan (04/27/2025 8:46 AM EDT): BP controlled and monitor PRN. Assessment & Plan (07/07/2024 8:44 AM EDT): BP controlled and monitor PRN. Assessment & Plan (01/02/2024 1:40 PM EST): BP controlled and monitor PRN. Allergic rhinitis due to rndvro4501/02/2024 Assessment & Plan (07/07/2024 8:44 AM EDT): Symptoms controlled with medication and continue. Assessment & Plan (01/02/2024 1:40 PM EST): Symptoms controlled with medication and continue. Ratfblaitiut40/21/7788Bgqlcfnpbab84/21/2024Ventricular isxroi6901/02/2024 Assessment & Plan (04/27/2025 8:46 AM EDT): [...] relatives?Twice a week06/30/2024How often do you attend sikh or pentecostalism services?More than 4 times per year06/30/2024o you belong to any clubs or organizations such as sikh groups, unions, fraternal or athletic groups, or [...] at all 06/30/2024HQ-2AnswerDate RecordedPatient Health Questionnaire-2 Score0 10/15/2024[facility] [place] of Occupational Health - Occupational Stress QuestionnaireAnswerDate [...] were you homeless or living in a usp (including now)?No06/30/2024CommentsUnknownSex and Gender InformationValueDate RecordedSex Assigned at BirthNot on fileLegal SexFemale 06/25/2023 9:33 AM EDTGender IdentityNot on fileSexual OrientationNot on file Last Filed Vital Signs Vital SignReadingTime TakenCommentsBlood Cegzneni064/8206 8:17 AM EDT Vegld292304/27/2025 8:17 AM VNHUqckfvfbuci25.4 ??C (97.5 ??F)04/27/2025 8:17 AM EDTRespiratory Dzik084604/27/2025 8:17 AM EDTOxygen Nisjebqujn09%04/27/2025 8:17 AM EDTInhaled Oxygen Concentration--Uhemoe22.8 kg (187 lb)04/27/2025 8:17 AM EDT Mcrqza421 cm (5' 3 )04/27/2025 8:17 AM EDTBody Mass Index33.13004/27/2025 8:17 AM EDT Plan of Treatment Health MaintenanceDue DateLast DoneCommentsCT Xqfzzivuzpwz1955FIT-DNA 1955FOBT1955Medicare Annual Wellness (AWV)1955Sigmoidoscopy 1955Pneumococcal Vaccine: 65+ Years (1 of 1 - PCV)2005FIT06/12/2024 06/12/2023OVID-19 Vaccine (6 - 2024- season)/07/2023, 10/20/2022, 09/06/2021, Additional history existsInfluenza Vaccine (#1) Miankjjzy00, 08/28/2024, 08/14/20234303Xahgbvqzsun67/20/2033 08/01/2023olorectal Cancer Wpjojxxch34/20/2033 Procedures Procedure NamePriorityDate/TimeAssociated DiagnosisCommentsBI MAMMOGRAM DIAGNOSTIC TOMOSYNTHESIS WBVFPCXXJLqjoamq00/17/2024 11:52 AM EDTFECAL BLKMZMOKKLUPNKXgrqlee92/01/2023 from Last 3 Months or Most Recently Relevant to Health Maintenance Results * Bilateral diagnostic mammogram with tomosynthesis (08/28/2024 11:52 AM EDT) Anatomical RegionLateralityModalityBreastBilateralMammography Narrative Authorizing ProviderResult TypeResult StatusRanjana Dover NPAMG [facility] BI PROCEDURESFinal Result * Fecal immunochemical (06/12/2023)Specimen (Source)Anatomical Location / LateralityCollection Method / VolumeCollection TimeReceived TimeStoolRectal contents / Mspqdde4806/12/2023 Narrative Christen Wilson MA - 06/12/2023 12:05 PM EDT Per [facility] home kit Authorizing ProviderResult TypeResult StatusMartoby YUSUF BODY FLUIDS AND STOOLS ORDERABLESFinal Result from Last 3 Months or Most Recently Relevant to Health Maintenance Insurance Care Teams Team MemberRelationshipSpecialtyStart DateEnd Date Shaun Licona MD [facility] - [facility]12[facility]23 Shaun Licona MD [address] [place] [address] PCP - Medical [facility]08/12/2012
--- OUTSIDE RECORDS SUMMARY | 2025-10-29 11:50 | XMS_ITS | Clinical Summary ---
Author Organization [facility] Address [address] [place] [address] Care Team Providers Care Dispatch Lead Name Role Phone Unavailable Primary Care Provider Unavailabl e Social History Tobacco UseTypesPacks/DayYears UsedDateSmoking Tobacco: Never AssessedUT Safety & EnvironmentAnswerDate RecordedFear of Current or Ex-PartnerNot on file 01/03/2024Emotionally AbusedNot on file01/03/2024hysically AbusedNot on file 01/03/2024Sexually AbusedNot on file01/03/2024hysically or Sexually AbusedNot on file01/03/2024CommentsUnknownSex and Gender InformationValueDate RecordedSex Assigned at BirthNot on fileLegal BfePvoase22/30/2022 12:44 AM EDT Gender IdentityNot on fileSexual OrientationNot on file Plan of Treatment Not on file
[2025-10-29 12:07] LABS: Hematocrit 39.0 % (36.0-48.0); Hemoglobin 13.2 g/dL (12.0-16.0); Immature Granulocytes Abs Auto 0.01 10^3/uL (0.00-0.03); Immature Granulocytes Pct Auto 0.2 % (0.0-0.5); Lymphocytes Absolute Auto 1.9 10^3/uL (1.2-3.8); Mean Corpuscular HGB Conc 33.8 g/dL (29.9-35.2); Mean Corpuscular Hemoglobin 32.0 pg (26.7-34.0); Mean Corpuscular Volume 94.4 fL (81.0-99.0); Platelet Count 199 10^3/uL (150-450); Red Blood Count 4.13 10^6/uL (4.20-5.40); White Blood Count 6.6 10^3/uL (4.0-11.0)
[2025-10-29 12:34] LABS: Alanine Aminotransferase 39 U/L (14-59); Albumin Globulin Ratio 1.1; Albumin Level 3.9 g/dL (3.4-5.0); Alkaline Phosphatase 85 U/L (46-116); Anion Gap 5.5; Aspartate Amino Transferase 16 U/L (15-37); Blood Urea Nitrogen 24.0 mg/dL (7.0-18.0); Calcium 9.4 mg/dL (8.5-10.1); Carbon Dioxide 33.2 mmol/L (21.0-32.0); Chloride 101 mmol/L (98-107); Cholesterol 151 mg/dL (<=200); Estimated GFR (African America >60 (>=60 mL/min/1.73m^2); Estimated GFR (Non-African Ame 52 (>=60 mL/min/1.73m^2); Globulin 3.5 g/dL; Glucose 98 mg/dL (74-106); HDL Cholesterol 70 mg/dL (40-60); Potassium 3.7 mmol/L (3.5-5.1); Sodium 136 mmol/L (136-145); Thyroid Stimulating Hormone 2.209 uIU/mL (0.358-3.740); Total Protein 7.4 g/dL (6.4-8.2); Triglycerides 127 mg/dL (<=150); VLDL CHOLESTEROL 25.4 mg/dL
== END 2025-10-29 11:38 | disposition home or self-care (01) ==
LOC: LAB 11:45
PROVIDERS: PCP Family Medicine; Visit Provider Family Medicine
DX: Z79.899 Other long term (current) drug therapy (principal); R73.03 Prediabetes; E78.5 Hyperlipidemia, unspecified; E66.811 Obesity, class 1; E66.09 Other obesity due to excess calories; Z68.33 Body mass index [BMI] 33.0-33.9, adult
CPT/HCPCS: 36415; 80053; 80061; 83036; 84443; 85025